=== PATIENT | female | born 1955 | race American Indian/Alaskan Native ===

== ENCOUNTER 2017-09-04 13:54 | Inpatient (IN) | payer OTHER ==
[2017-09-04] MEDS ORDERED: Dextrose 50% SYRINGE Inj (50 ml) ONE ×2 (14:13→14:15)
[2017-09-04 14:24] LABS: BASO # 0.1 K/uL (0.0-0.2); BASO % 0.3 % (0.0-2.0); EOS % 0.1 % (0.0-4.0); HEMATOCRIT 19.7 % (34.0-47.0); LYMPH # 1.4 K/uL (1.0-4.3); LYMPH % 6.6 % (20.0-40.0); MEAN CORPUSCULAR HEMOGLOBIN 32.6 pg (27.0-31.0); MEAN CORPUSCULAR HGB CONC 30.7 g/dL (33.0-37.0); MONO # 1.2 K/uL (0.0-0.8); MONO % 5.8 % (0.0-10.0); NRBC % 0.9 % (0.0-2.0); PLATELET COUNT 212 K/uL (130-400); RED CELL DISTRIBUTION WIDTH 29.9 % (11.5-14.5); WHITE BLOOD COUNT 20.6 K/uL (4.8-10.8)
[2017-09-04 14:31] LABS: INR 1.4
[2017-09-04 14:33] LABS: VENOUS BLOOD GAS BASE EXCESS -0.2 mmol/L (0.0-2.0); VENOUS BLOOD GAS PCO2 37 mmHg (40-60); VENOUS BLOOD PH 7.42 (7.32-7.43)
--- NOTE | 2017-09-04 14:35 | CT ---
PROCEDURE: CT HEAD WITHOUT CONTRAST. HISTORY: Code Stroke COMPARISON: None available. TECHNIQUE: Axial computed tomography images were obtained through the head/brain without intravenous contrast. Radiation dose: Total exam DLP = 843.43 mGy-cm. This CT exam was performed using one or more of the following dose reduction techniques: Automated exposure control, adjustment of the mA and/or kV according to patient size, and/or use of iterative reconstruction technique. FINDINGS: HEMORRHAGE: No intracranial hemorrhage. BRAIN: Diffuse atrophy with prominence of the ventricles and sulci noted. No mass effect or edema. Scattered periventricular and subcortical white matter hypodensities, which are nonspecific, but often seen with chronic microvascular ischemic disease. Please note that MRI with diffusion imaging is more sensitive in the detection of acute ischemic event. VENTRICLES: No hydrocephalus. CALVARIUM: Unremarkable. PARANASAL SINUSES: Unremarkable as visualized. No significant inflammatory changes. MASTOID AIR CELLS: Unremarkable as visualized. No inflammatory changes. OTHER FINDINGS: None. IMPRESSION: Nonspecific white matter changes. Generalized atrophy. Findings discussed with Dr. Everett on 09/04/17 at 2:29 p.m.
[2017-09-04 14:48] LABS: NEUTROPHIL 77 % (50-75); TOTAL CELLS COUNTED 100
[2017-09-04 14:51] LABS: STOMATOCYTES SLIGHT
[2017-09-04 14:52] LABS: LARGE PLATELETS PRESENT
[2017-09-04] MEDS ORDERED: Piperacill/Tazo 3.375gm in Dex 3.375 GM/50 ML BAG IVPB STA (14:54)
--- NOTE | 2017-09-04 15:00 | C.PDOC ---
History Of Present Illness 62 year old female, whose PMHx includes uterine cancer and HTN, is brought to the ED via EMS after being sent from residential for evaluation of altered mental status and lethargy since 0800 today. Patient was unresponsive upon ED arrival, with blood sugar less than 20mg/dL and was given two amps of dextrose. Patient continues to remain lethargic, response to verbal stimuli. History is limited due to patients clinical condition. Time Seen by Provider: 09/04/17 13:58 Chief Complaint (Nursing): Altered Mental Status History Per: EMS History/Exam Limitations: Clinical Condition Onset/Duration Of Symptoms: Hrs Current Symptoms Are (Timing): Still Present Usual Baseline: Other (baseline oriented x3) Exacerbating Factor(s): Unknown Additional History Per: EMS, [facility] Associated Symptoms: Other (AMS and lethargy ) Past Medical History Reviewed: Historical Data, Nursing Documentation, Vital Signs Vital Signs: Last Vital Signs Temp 97.7 F 09/05/17 07:00 Pulse 96 H 09/05/17 07:00 Resp 18 09/05/17 07:00 BP 125/77 09/05/17 07:00 Pulse Ox 100 09/05/17 07:00 - Medical History PMH: HTN Other PMH: uterine cancer Surgical History: No Surg Hx Family History: States: Unknown Family Hx - Social History Hx Alcohol Use: No Hx Substance Use: No - Immunization History Hx Tetanus Toxoid Vaccination: No Hx Influenza Vaccination: No Hx Pneumococcal Vaccination: No Review Of Systems Review Of Systems: ROS cannot be obtained secondary to pt's inabilty to answer questions. Physical Exam - Physical Exam Appears: Non-toxic, Other (lethargic, ill-appearing, occasionally moaning ) Skin: Normal Color, Warm, Dry Head: Atraumatic, Normacephalic Eye(s): bilateral: Normal Inspection Oral Mucosa: Moist Neck: Supple Chest: Symmetrical, No Deformity, No Tenderness Cardiovascular: Rhythm Regular, No Murmur Respiratory: Normal Breath Sounds, No Rales, No Rhonchi, No Wheezing Gastrointestinal/Abdominal: Distention, Other (wound VAC in place ) Extremity: Normal ROM, Capillary Refill (less than 2 seconds ) Neurological/Psych: Other (baseline oriented x3. no focal deficits ) ED Course And Treatment - Laboratory Results Result Diagrams: 09/05/17 06:38 09/05/17 06:38 ECG: Interpreted By Me, Viewed By Me ECG Rhythm: Sinus Tachycardia Interpretation Of ECG: Sinus Tachycardia with 102bpm. Poor tracing. Nonspecific ST/T wave changes. Rate From EC O2 Sat by Pulse Oximetry: 100 (on RA) Pulse Ox Interpretation: Normal - CT Scan/US CT Head Other Rad Studies (CT/US): Interpreted By Me, Read By Radiologist, Radiology Report Reviewed CT/US Interpretation: PROCEDURE: CT HEAD WITHOUT CONTRAST. HISTORY: Code Stroke. COMPARISON: None available. TECHNIQUE: Axial computed tomography images were obtained through the head/brain without intravenous contrast. Radiation dose: Total exam DLP = 843.43 mGy-cm. This CT exam was performed using one or more of the following dose reduction techniques: Automated exposure control, adjustment of the mA and/or kV according to patient size, and/ or use of iterative reconstruction technique. FINDINGS: HEMORRHAGE: No intracranial hemorrhage. BRAIN: Diffuse atrophy with prominence of the ventricles and sulci noted. No mass effect or edema. Scattered periventricular and subcortical white matter hypodensities, which are nonspecific, but often seen with chronic microvascular ischemic disease. Please note that MRI with diffusion imaging is more sensitive in the detection of acute ischemic event. VENTRICLES: No hydrocephalus. CALVARIUM: Unremarkable. PARANASAL SINUSES: Unremarkable as visualized. No significant inflammatory changes. MASTOID AIR CELLS: Unremarkable as visualized. No inflammatory changes. OTHER FINDINGS: None. IMPRESSION: Nonspecific white matter changes. Generalized atrophy. Findings discussed with Dr. Everett on 09/04/17 at 2:29 p.m. NIHSS Stroke Scale - How Severe is the Stoke Level of Consciousness: 2=Obtunded LOC to Questions: 2=Neither correct LOC to commands: 1=Obeys one correctly Best Gaze: 0=Normal Visual: 0=No visual loss Facial: 0=Normal Motor Arm - Left: 3=No effort against gravity (falls immediately) Motor Arm - Right: 3=No effort against gravity (falls immediately) Motor Leg - Left: 3=No effort against gravity (falls immediately) Motor Leg - Right: 3=No effort against gravity (falls immediately) Limb Ataxia: 0=Absent Sensory: 0=Normal Best Language: 0=No aphasia Dysarthia: 0=Normal articulation Extinction & Inattention (Neglect): 0=Normal, no object Score: 17 Severity Of Stroke: 16-20=Moderate/Severe Stroke rTPA Inclusion/Exclusion - Refusal of Treatment Patient Refused Treatment: No - Inclusion Criteria for Altepase Patient is 18 years or Older: Yes Clinical DX Ischemic Stroke Cause Neurological Deficit: No Time of Onset Established Less Than 270 Mins Before TX Begin: No Risk/Benefit Discussed With Patient/Family Member Present: Yes - Exclusion Criteria for Altepase Active Internal Bleeding: Yes Medical Decision Making Medical Decision Making: ams- pt still lethargic after 2 amp dextrose. code stroke called. not tpa candate, as per dr brewer, onset >6 hr, likely sepsis etiology, gi bleed- Progress: Bloodwork, UA, CXR, CT A/P, CT Head, EKG ordered and reviewed. Zosyn IVP, Vancomycin IVP administered. 430: case discussed with dr baker, and dr crump. pt will need hospice eval. agree to tele admission, given prognosis, need for hospice. pt needs tranfusion. consent obtained over phone. asa held as guiac pos, and anemic Disposition - Disposition Disposition: HOSPITALIZED Disposition Time: 05:00 Condition: GUARDED - Clinical Impression Clinical Impression: Altered mental status, Anemia, Pneumonia, Sepsis - Scribe Statement The provider has reviewed the documentation as recorded by the Scribe (Alivia Peres) Provider Attestation: All medical record entries made by the Scribe were at my direction and personally dictated by me. I have reviewed the chart and agree that the record accurately reflects my personal performance of the history, physical exam, medical decision making, and the department course for this patient. I have also personally directed, reviewed, and agree with the discharge instructions and disposition. Decision To Admit - Pt Status Changed To: Hospital Disposition Of: Inpatient - Admit Certification Admit to Inpatient:: After my assessment, the patient will require hospitalization for at least two midnights. This is because of the severity of symptoms shown, intensity of services needed, and/or the medical risk in this patient being treated as an outpatient. - InPatient: Physician Admission Certification:: sesps, needs iv antibiotcs transfusion and hospiee eval - . Bed Request Type: Telemetry Admitting Physician: Karla Peres Patient Diagnosis: Altered mental status, Anemia, Pneumonia, Sepsis
[2017-09-04] MEDS ORDERED: Vancomycin 1 gm/NS 200 ml 1 GM/200 ML BAG IVPB STA (15:32)
[2017-09-04 15:39] LABS: ALB/GLOB RATIO 0.5 (1.0-2.1); ALKALINE PHOSPHATASE 124 U/L (38-126); ALT/SGPT 33 U/L (9-52); AST/SGOT 59 U/L (14-36); BILIRUBIN,TOTAL 0.7 mg/dL (0.2-1.3); BLOOD UREA NITROGEN 30 mg/dL (7-17); CALCIUM 7.6 mg/dl (8.6-10.4); CARBON DIOXIDE 23 mmol/L (22-30); CHLORIDE 107 mmol/L (98-107); GFR AFRICAN-AMERICAN > 60; POTASSIUM 3.6 mmol/L (3.6-5.2); SODIUM 135 mmol/L (132-148); TOTAL PROTEIN 7.2 g/dL (6.3-8.3)
--- NOTE | 2017-09-04 15:44 | CT ---
CT abdomen and pelvis without IV contrast Indication: Abdominal distension Contiguous axial images of the abdomen and pelvis. No oral or IV contrast administered. Coronal and Sagittal reformats generated and reviewed. Radiation dose: Total exam DLP = 1163.37 mGy-cm. Comparison: None available. Findings: Moderate left-sided pleural effusion and associated consolidation. Right lower lobe 12 mm subpleural focus may reflect consolidations/atelectasis versus pulmonary nodule. Large mesenteric heterogeneous mass measuring approximately 14.7 cm (AP) by 18.1 cm (transverse) by 20.0 cm (cc). This finding exerts mass effect on surrounding structures. This lesion extends beyond the abdominal cavity into the abdominal soft tissues. The stomach is contracted and noted along the right lateral aspect of this mass. Scattered soft tissue nodules are evident measuring up to 2.0 x 1.2 cm on the right, possibly related to subcutaneous injections however metastases cannot be excluded. The noncontrast liver, spleen, gallbladder, and adrenal glands appear unremarkable. Limited visualization of the atrophic pancreas. Right-sided hydronephrosis with right ureteral stent evident. No evidence of hydronephrosis on the left. The stomach is nondistended. Lack of oral contrast limits evaluation for bowel pathology. The bowel loops appear within normal limits of caliber without evidence of intestinal obstruction. There is no definite free air. Atherosclerotic calcifications of the aorta. Hysterectomy. The urinary bladder appears unremarkable except for presence of right ureteral stent. Osseous structures demonstrate degenerative changes. Impression: Large heterogeneous mass within the mesenteries exerting mass effect on the surrounding structures measuring approximately 14.7 x 18.1 x 20.0 cm. This lesion extends beyond the abdominal cavity into the abdominal soft tissues. Appearance worrisome for malignant neoplasm such as sarcoma however indeterminate etiology. Given proximity to the stomach possibility of gastric leiomyoma or leiomyosarcoma should also be considered. If indicated endoscopy may be of benefit. Right-sided hydronephrosis with ureteral stent present. Scattered soft tissue nodules are evident measuring up to 2.0 x 1.2 cm on the right, possibly related to subcutaneous injections however metastases cannot be excluded. Moderate left-sided pleural effusion and associated consolidation. Right lower lobe 12 mm subpleural focus may reflect consolidations/atelectasis versus pulmonary nodule.Recommend further evaluation with biopsy, PET- CT, or follow-up CT at 3 months, and 9 months, and 24 months. Additional findings as above. Findings discussed with Dr. Everett on 09/04/17 at 3:13 p.m..
--- NOTE | 2017-09-04 16:00 | RAD ---
HISTORY: code stroke COMPARISON: None available. TECHNIQUE: Chest, one view. FINDINGS: Right-sided MediPort extends to the SVC. LUNGS: Small left pleural effusion with associated consolidation. No definite pneumothorax . CARDIOVASCULAR: Heart size appears within normal limits. Atherosclerotic calcification of the aortic knob. OSSEOUS STRUCTURES: Degenerative changes of the spine. VISUALIZED UPPER ABDOMEN: Unremarkable. OTHER FINDINGS: None. IMPRESSION: Right-sided MediPort extends to the SVC. Small left pleural effusion with associated consolidate.
[2017-09-04 16:02] LABS: GLUCOSE,RANDOM < 20 mg/dL (65-105)
[2017-09-04 16:04] LABS: CHOLESTEROL < 50 mg/dL (0-199)
[2017-09-04] MEDS ORDERED: Dextrose 50% SYRINGE Inj (50 ml) IV STA ×2 (16:36)
[2017-09-04] MEDS ORDERED: Aluminum Hydroxide/Magnesium Hydroxide Susp (30 mL) PO PRN (17:30)
--- NOTE | 2017-09-04 17:31 | CP.PCM.HP ---
History of Present Illness - History of Present Illness History of Present Illness: 59-year-old female with PMHuterine cancer and HTN [facility] for evaluation of altered mental status. Patient was lethargic since 8 AM today morning, became altered and when the EMS arrived her blood glucose was 20 mg/dl. patient was given two ampules of dextrose. Patient still continues to remain lethargic. Further history is unavailable due to patient's general medical condition. Present on Admission - Present on Admission Any Indicators Present on Admission: No Past Patient History - Infectious Disease Hx of Infectious Diseases: None - Past Social History Smoking Status: Unknown If Ever Smoked - CARDIAC Hx Hypertension: Yes - HEMATOLOGICAL/ONCOLOGICAL Hx Cancer: Yes (UTERUS) - MUSCULOSKELETAL/RHEUMATOLOGICAL Hx Unsteady Gait: Yes - PSYCHIATRIC Hx Substance Use: No - SURGICAL HISTORY Hx Surgeries: Yes Other/Comment: UTERINE NEOPLASM SURGERY - ANESTHESIA Hx Anesthesia: Yes Meds Allergies/Adverse Reactions: Allergies Allergy/AdvReac Type Severity Reaction Status Date / Time No Known Allergies Allergy Verified 09/04/17 14:40 Physical Exam - Constitutional Appears: Well - Head Exam Head Exam: ATRAUMATIC, NORMAL INSPECTION, NORMOCEPHALIC - Eye Exam Eye Exam: EOMI, Normal appearance, PERRL Pupil Exam: NORMAL ACCOMODATION, PERRL - ENT Exam ENT Exam: Mucous Membranes Moist, Normal Exam - Neck Exam Neck exam: Positive for: Normal Inspection - Respiratory Exam Respiratory Exam: Decreased Breath Sounds - Cardiovascular Exam Cardiovascular Exam: REGULAR RHYTHM, +S1, +S2 - GI/Abdominal Exam GI & Abdominal Exam: Diminished Bowel Sounds, Soft - Rectal Exam Rectal Exam: Deferred Results - Vital Signs Recent Vital Signs: Last Vital Signs Temp 97.4 F L 09/04/17 16:10 Pulse 97 H 09/04/17 16:10 Resp 12 09/04/17 16:10 BP 91/66 L 09/04/17 16:10 Pulse Ox 100 09/04/17 17:15 - Labs Result Diagrams: 09/11/17 07:08 09/11/17 07:08 Labs: Laboratory Results - last 24 hr 09/04/17 09/04/17 09/04/17 14:11 14:19 14:19 WBC 20.6 H RBC 1.86 L Hgb 6.1 L* Hct 19.7 L MCV 106.0 H MCH 32.6 H MCHC 30.7 L RDW 29.9 H Plt Count 212 MPV 8.0 Neut % (Auto) 87.2 H Lymph % (Auto) 6.6 L George % (Auto) 5.8 Eos % (Auto) 0.1 Baso % (Auto) 0.3 Neut # 18.0 H Lymph # 1.4 George # 1.2 H Eos # 0.0 Baso # 0.1 Neutrophils % (Manual) 77 H Band Neutrophils % 9 H Lymphocytes % (Manual) 10 L Monocytes % (Manual) 4 Platelet Estimate Normal Large Platelets Present Hypochromasia (manual) Slight Anisocytosis (manual) Moderate Macrocytosis (manual) Moderate Stomatocytes Slight PT 16.1 H INR 1.4 APTT 32 VBG pH VBG pCO2 VBG Total CO2 VBG O2 Sat (Calc) VBG Base Excess VBG Potassium Glucose Lactate Crit Value Called To Crit Value Called By Crit Value Read Back Blood Gas Notified Time Sodium Potassium Chloride Carbon Dioxide Anion Gap BUN Creatinine Est GFR ( Amer) Est GFR (Non-Af Amer) POC Glucose (mg/dL) < 20 L* Random Glucose Hemoglobin A1c Calcium Total Bilirubin AST ALT Alkaline Phosphatase Troponin I Total Protein Albumin Globulin Albumin/Globulin Ratio Triglycerides Cholesterol LDL Cholesterol Direct HDL Cholesterol Lipase Venous Blood Potassium Stool Occult Blood Blood Type Antibody Screen 09/04/17 09/04/17 09/04/17 14:19 14:19 14:26 WBC RBC Hgb Hct MCV MCH MCHC RDW Plt Count MPV Neut % (Auto) Lymph % (Auto) George % (Auto) Eos % (Auto) Baso % (Auto) Neut # Lymph # George # Eos # Baso # Neutrophils % (Manual) Band Neutrophils % Lymphocytes % (Manual) Monocytes % (Manual) Platelet Estimate Large Platelets Hypochromasia (manual) Anisocytosis (manual) Macrocytosis (manual) Stomatocytes PT INR APTT VBG pH 7.42 VBG pCO2 37 L VBG Total CO2 25.1 VBG O2 Sat (Calc) 97.7 H VBG Base Excess -0.2 L VBG Potassium 3.6 Glucose < 4 L* Lactate 0.8 Crit Value Called To Dr.raswant osman Crit Value Called By Jonas murillo Crit Value Read Back Y Blood Gas Notified Time 1440 Sodium 135 144.0 Potassium 3.6 Chloride 107 116.0 H Carbon Dioxide 23 Anion Gap 9 L BUN 30 H Creatinine 1.1 Est GFR ( Amer) > 60 Est GFR (Non-Af Amer) 50 POC Glucose (mg/dL) Random Glucose < 20 L* Hemoglobin A1c 3.7 L Calcium 7.6 L Total Bilirubin 0.7 AST 59 H ALT 33 Alkaline Phosphatase 124 Troponin I < 0.0120 Total Protein 7.2 Albumin 2.4 L Globulin 4.8 H Albumin/Globulin Ratio 0.5 L Triglycerides 116 Cholesterol < 50 LDL Cholesterol Direct < 30 HDL Cholesterol 11 L Lipase 71 Venous Blood Potassium 3.6 Stool Occult Blood Blood Type Antibody Screen 09/04/17 09/04/17 09/04/17 14:26 14:39 15:21 WBC RBC Hgb Hct MCV MCH MCHC RDW Plt Count MPV Neut % (Auto) Lymph % (Auto) George % (Auto) Eos % (Auto) Baso % (Auto) Neut # Lymph # George # Eos # Baso # Neutrophils % (Manual) Band Neutrophils % Lymphocytes % (Manual) Monocytes % (Manual) Platelet Estimate Large Platelets Hypochromasia (manual) Anisocytosis (manual) Macrocytosis (manual) Stomatocytes PT INR APTT VBG pH VBG pCO2 VBG Total CO2 VBG O2 Sat (Calc) VBG Base Excess VBG Potassium Glucose Lactate Crit Value Called To Crit Value Called By Crit Value Read Back Blood Gas Notified Time Sodium Potassium Chloride Carbon Dioxide Anion Gap BUN Creatinine Est GFR ( Amer) Est GFR (Non-Af Amer) POC Glucose (mg/dL) 203 H Random Glucose Hemoglobin A1c Calcium Total Bilirubin AST ALT Alkaline Phosphatase Troponin I Total Protein Albumin Globulin Albumin/Globulin Ratio Triglycerides Cholesterol LDL Cholesterol Direct HDL Cholesterol Lipase Venous Blood Potassium Stool Occult Blood Positive H Blood Type O POSITIVE Antibody Screen Negative
[2017-09-04 18:09] LABS: RBC URINE 257 /hpf (0-3); URINE BACTERIA MOD (<OCC); URINE BILIRUBIN NEGATIVE (NEGATIVE); URINE BLOOD 3+ (NEGATIVE); URINE COLOR Yellow (YELLOW); URINE GLUCOSE (UA) 1+ mg/dL (Normal); URINE HYALINE CAST >20 /lpf (0-2); URINE KETONE NEGATIVE (NEGATIVE); URINE LEUKOCYTE ESTERASE 2+ Leu/uL (Negative); URINE PROTEIN 2+ mg/dL (NEGATIVE); URINE UROBILINOGEN NORMAL mg/dL (0.2-1.0); WBC CLUMPS MOD /hpf; WBC URINE 7720 /hpf (0-5)
--- NOTE | 2017-09-04 19:19 | CP.PCM.CON ---
History of Present Illness - History of Present Illness History of Present Illness: 62 year old female with a history of recurrent primary peritoneal carcinoma diagnosed 03/2014, s/p chemotherapy and cytoreductive surgery complicated by prolonged wound closure s/p wound vac, admitted from rehab with lethargy and altered mental status. The patient was found to have low blood sugar and was treated with IV dextrose. Her mental status improved but she still has periods of confusion making further history difficult. Review of her blood work shows an elevated WBC and hgb of 6.1. Past medical, surgical, family, social history cannot be obtained from the patient. Allergies: Per documentation NKA Review of systems cannot be obtained. Past Patient History - Infectious Disease Hx of Infectious Diseases: None - Past Social History Smoking Status: Unknown If Ever Smoked - CARDIAC Hx Hypertension: Yes - HEMATOLOGICAL/ONCOLOGICAL Hx Cancer: Yes (UTERUS) - MUSCULOSKELETAL/RHEUMATOLOGICAL Hx Unsteady Gait: Yes - PSYCHIATRIC Hx Substance Use: No - SURGICAL HISTORY Hx Surgeries: Yes Other/Comment: UTERINE NEOPLASM SURGERY - ANESTHESIA Hx Anesthesia: Yes Meds Allergies/Adverse Reactions: Allergies Allergy/AdvReac Type Severity Reaction Status Date / Time No Known Allergies Allergy Verified 09/04/17 14:40 - Medications Medications: Current Medications Al Hydrox/Mg Hydrox/Simethicone (Maalox 30 Ml) 30 ml PO Q4 PRN PRN Reason: heartburn Enoxaparin Sodium (Lovenox) 40 mg SC DAILY [facility] Gabapentin (Neurontin) 300 mg PO BID [facility] Dextrose (Dextrose 10% In Water) 1,000 mls @ 25 mls/hr IV .Q24H [facility] Piperacillin Sod/Tazobactam Sod (Zosyn 3.375 Gm Iv Premix) 3.375 gm in 50 mls @ 100 mls/hr IVPB Q6H [facility] Ondansetron HCl (Zofran Tab) 4 mg PO Q8 PRN PRN Reason: nausea Pantoprazole Sodium (Protonix Ec Tab) 40 mg PO DAILY [facility] Physical Exam - Head Exam Head Exam: ATRAUMATIC - Eye Exam Eye Exam: Normal appearance - ENT Exam ENT Exam: Mucous Membranes Dry - Respiratory Exam Respiratory Exam: NORMAL BREATHING PATTERN - Cardiovascular Exam Cardiovascular Exam: +S1, +S2 - GI/Abdominal Exam GI & Abdominal Exam: Normal Bowel Sounds - Extremities Exam Extremities exam: Positive for: pedal edema - Neurological Exam Neurological exam: Altered - Psychiatric Exam Psychiatric exam: Normal Affect, Normal Mood - Skin Skin Exam: Warm Results - Vital Signs Recent Vital Signs: Last Vital Signs Temp 97.4 F L 09/04/17 17:15 Pulse 85 09/04/17 17:44 Resp 12 09/04/17 17:44 BP 104/57 L 09/04/17 17:44 Pulse Ox 98 09/04/17 17:44 - Labs Result Diagrams: 09/04/17 14:19 09/04/17 14:19 Labs: Laboratory Results - last 24 hr 09/04/17 09/04/17 09/04/17 14:11 14:19 14:19 WBC 20.6 H RBC 1.86 L Hgb 6.1 L* Hct 19.7 L MCV 106.0 H MCH 32.6 H MCHC 30.7 L RDW 29.9 H Plt Count 212 MPV 8.0 Neut % (Auto) 87.2 H Lymph % (Auto) 6.6 L [place] % (Auto) 5.8 Eos % (Auto) 0.1 Baso % (Auto) 0.3 Neut # 18.0 H Lymph # 1.4 [place] # 1.2 H Eos # 0.0 Baso # 0.1 Neutrophils % (Manual) 77 H Band Neutrophils % 9 H Lymphocytes % (Manual) 10 L Monocytes % (Manual) 4 Platelet Estimate Normal Large Platelets Present Hypochromasia (manual) Slight Anisocytosis (manual) Moderate Macrocytosis (manual) Moderate Stomatocytes Slight PT 16.1 H INR 1.4 APTT 32 VBG pH VBG pCO2 VBG Total CO2 VBG O2 Sat (Calc) VBG Base Excess VBG Potassium Glucose Lactate Crit Value Called To Crit Value Called By Crit Value Read Back Blood Gas Notified Time Sodium Potassium Chloride Carbon Dioxide Anion Gap BUN Creatinine Est GFR ( Amer) Est GFR (Non-Af Amer) POC Glucose (mg/dL) < 20 L* Random Glucose Hemoglobin A1c Calcium Total Bilirubin AST ALT Alkaline Phosphatase Troponin I Total Protein Albumin Globulin Albumin/Globulin Ratio Triglycerides Cholesterol LDL Cholesterol Direct HDL Cholesterol Lipase Venous Blood Potassium Urine Color Urine Clarity Urine pH Ur Specific [place] Urine Protein Urine Glucose (UA) Urine Ketones Urine Blood Urine Nitrate Urine Bilirubin Urine Urobilinogen Ur Leukocyte Esterase Urine WBC (Auto) Urine RBC (Auto) Urine WBC Clumps (Auto) Ur Squamous Epith Cells Urine Bacteria Hyaline Casts Urine Yeast (Budding) Stool Occult Blood Blood Type Antibody Screen 09/04/17 09/04/17 09/04/17 14:19 14:19 14:26 WBC RBC Hgb Hct MCV MCH MCHC RDW Plt Count MPV Neut % (Auto) Lymph % (Auto) [place] % (Auto) Eos % (Auto) Baso % (Auto) Neut # Lymph # [place] # Eos # Baso # Neutrophils % (Manual) Band Neutrophils % Lymphocytes % (Manual) Monocytes % (Manual) Platelet Estimate Large Platelets Hypochromasia (manual) Anisocytosis (manual) Macrocytosis (manual) Stomatocytes PT INR APTT VBG pH 7.42 VBG pCO2 37 L VBG Total CO2 25.1 VBG O2 Sat (Calc) 97.7 H VBG Base Excess -0.2 L VBG Potassium 3.6 Glucose < 4 L* Lactate 0.8 Crit Value Called To Dr.raswant osman Crit Value Called By Jonas murillo Crit Value Read Back Y Blood Gas Notified Time 1440 Sodium 135 144.0 Potassium 3.6 Chloride 107 116.0 H Carbon Dioxide 23 Anion Gap 9 L BUN 30 H Creatinine 1.1 Est GFR ( Amer) > 60 Est GFR (Non-Af Amer) 50 POC Glucose (mg/dL) Random Glucose < 20 L* Hemoglobin A1c 3.7 L Calcium 7.6 L Total Bilirubin 0.7 AST 59 H ALT 33 Alkaline Phosphatase 124 Troponin I < 0.0120 Total Protein 7.2 Albumin 2.4 L Globulin 4.8 H Albumin/Globulin Ratio 0.5 L Triglycerides 116 Cholesterol < 50 LDL Cholesterol Direct < 30 HDL Cholesterol 11 L Lipase 71 Venous Blood Potassium 3.6 Urine Color Urine Clarity Urine pH Ur Specific [place] Urine Protein Urine Glucose (UA) Urine Ketones Urine Blood Urine Nitrate Urine Bilirubin Urine Urobilinogen Ur Leukocyte Esterase Urine WBC (Auto) Urine RBC (Auto) Urine WBC Clumps (Auto) Ur Squamous Epith Cells Urine Bacteria Hyaline Casts Urine Yeast (Budding) Stool Occult Blood Blood Type Antibody Screen 09/04/17 09/04/17 09/04/17 14:26 14:39 15:21 WBC RBC Hgb Hct MCV MCH MCHC RDW Plt Count MPV Neut % (Auto) Lymph % (Auto) [place] % (Auto) Eos % (Auto) Baso % (Auto) Neut # Lymph # [place] # Eos # Baso # Neutrophils % (Manual) Band Neutrophils % Lymphocytes % (Manual) Monocytes % (Manual) Platelet Estimate Large Platelets Hypochromasia (manual) Anisocytosis (manual) Macrocytosis (manual) Stomatocytes PT INR APTT VBG pH VBG pCO2 VBG Total CO2 VBG O2 Sat (Calc) VBG Base Excess VBG Potassium Glucose Lactate Crit Value Called To Crit Value Called By Crit Value Read Back Blood Gas Notified Time Sodium Potassium Chloride Carbon Dioxide Anion Gap BUN Creatinine Est GFR ( Amer) Est GFR (Non-Af Amer) POC Glucose (mg/dL) 203 H Random Glucose Hemoglobin A1c Calcium Total Bilirubin AST ALT Alkaline Phosphatase Troponin I Total Protein Albumin Globulin Albumin/Globulin Ratio Triglycerides Cholesterol LDL Cholesterol Direct HDL Cholesterol Lipase Venous Blood Potassium Urine Color Urine Clarity Urine pH Ur Specific [place] Urine Protein Urine Glucose (UA) Urine Ketones Urine Blood Urine Nitrate Urine Bilirubin Urine Urobilinogen Ur Leukocyte Esterase Urine WBC (Auto) Urine RBC (Auto) Urine WBC Clumps (Auto) Ur Squamous Epith Cells Urine Bacteria Hyaline Casts Urine Yeast (Budding) Stool Occult Blood Positive H Blood Type O POSITIVE Antibody Screen Negative 09/04/17 09/04/17 17:41 18:54 WBC RBC Hgb Hct MCV MCH MCHC RDW Plt Count MPV Neut % (Auto) Lymph % (Auto) [place] % (Auto) Eos % (Auto) Baso % (Auto) Neut # Lymph # [place] # Eos # Baso # Neutrophils % (Manual) Band Neutrophils % Lymphocytes % (Manual) Monocytes % (Manual) Platelet Estimate Large Platelets Hypochromasia (manual) Anisocytosis (manual) Macrocytosis (manual) Stomatocytes PT INR APTT VBG pH VBG pCO2 VBG Total CO2 VBG O2 Sat (Calc) VBG Base Excess VBG Potassium Glucose Lactate Crit Value Called To Crit Value Called By Crit Value Read Back Blood Gas Notified Time Sodium Potassium Chloride Carbon Dioxide Anion Gap BUN Creatinine Est GFR ( Amer) Est GFR (Non-Af Amer) POC Glucose (mg/dL) 136 H Random Glucose Hemoglobin A1c Calcium Total Bilirubin AST ALT Alkaline Phosphatase Troponin I Total Protein Albumin Globulin Albumin/Globulin Ratio Triglycerides Cholesterol LDL Cholesterol Direct HDL Cholesterol Lipase Venous Blood Potassium Urine Color Yellow Urine Clarity Turbid Urine pH 5.0 Ur Specific [place] 1.015 Urine Protein 2+ H Urine Glucose (UA) 1+ Urine Ketones Negative Urine Blood 3+ H Urine Nitrate Negative Urine Bilirubin Negative Urine Urobilinogen Normal Ur Leukocyte Esterase 2+ H Urine WBC (Auto) 7720 H Urine RBC (Auto) 257 H Urine WBC Clumps (Auto) Mod H Ur Squamous Epith Cells 4 Urine Bacteria Mod H Hyaline Casts >20 H Urine Yeast (Budding) Many H Stool Occult Blood Blood Type Antibody Screen Assessment & Plan (1) Anemia Assessment and Plan: will send ferritin, retic count, b12, folate to further characterize FOBT positive likely anemia of chronic disease agree with transfusion support Status: Acute (2) Leukocytosis Assessment and Plan: on antibiotics prior intra abdominal infection; has wound vac Status: Acute (3) Coagulopathy Assessment and Plan: likely nutritional Status: Acute (4) Extraovarian primary peritoneal carcinoma Assessment and Plan: s/p chemotherapy and cytoreductive surgery CT scan shows progression of her disease despite cytoreductive surgery recommend palliative care evaluation pt not a treatment candidate given continued debility Thank you for this interesting consult. Status: Acute
[2017-09-04] MEDS: Pantoprazole 40 mg EC Tab PO SCH (20:30)
[2017-09-04] MEDS: Piperacill/Tazo 3.375gm in Dex 3.375 GM/50 ML BAG IVPB SCH (21:40)
--- NOTE | 2017-09-05 00:58 | CP.PCM.CON ---
History of Present Illness - History of Present Illness History of Present Illness: General Surgery Consult Re: Abdominal wound with wound vac HPI: 62F with a history of recurrent primary peritoneal carcinoma with delayed wound closure with wound vac, initially admitted with AMS. Surgery Consulted for evaluation of wound vac. Pt does not, at this time, answer questions. EMR and Outpatient facility transfer chart reviewed. PMH: recurrent primary peritoneal carcinoma, HTN PSH: cytoreductive surgery SH: Unable to obtain All: NKDA Meds: See MAR Review of Systems - Review of Systems Systems not reviewed;Unavailable: Altered Mental Status Past Patient History - Infectious Disease Hx of Infectious Diseases: None - Past Social History Smoking Status: Unknown If Ever Smoked - CARDIAC Hx Hypertension: Yes - HEMATOLOGICAL/ONCOLOGICAL Hx Cancer: Yes (UTERUS) - MUSCULOSKELETAL/RHEUMATOLOGICAL Hx Unsteady Gait: Yes - PSYCHIATRIC Hx Substance Use: No - SURGICAL HISTORY Hx Surgeries: Yes Other/Comment: UTERINE NEOPLASM SURGERY - ANESTHESIA Hx Anesthesia: Yes Meds Allergies/Adverse Reactions: Allergies Allergy/AdvReac Type Severity Reaction Status Date / Time No Known Allergies Allergy Verified 09/04/17 14:40 - Medications Medications: Current Medications Al Hydrox/Mg Hydrox/Simethicone (Maalox 30 Ml) 30 ml PO Q4 PRN PRN Reason: heartburn Enoxaparin Sodium (Lovenox) 40 mg SC DAILY [facility] Gabapentin (Neurontin) 300 mg PO BID [facility] Last Admin: 09/04/17 20:30 Dose: 300 mg Dextrose (Dextrose 10% In Water) 1,000 mls @ 25 mls/hr IV .Q24H [facility] Last Admin: 09/04/17 19:38 Dose: 25 mls/hr Piperacillin Sod/Tazobactam Sod (Zosyn 3.375 Gm Iv Premix) 3.375 gm in 50 mls @ 100 mls/hr IVPB Q6H [facility] Last Admin: 09/04/17 21:40 Dose: 100 mls/hr Ondansetron HCl (Zofran Tab) 4 mg PO Q8 PRN PRN Reason: nausea Pantoprazole Sodium (Protonix Ec Tab) 40 mg PO DAILY [facility] Last Admin: 09/04/17 20:30 Dose: 40 mg Physical Exam - Constitutional Appears: Non-toxic, No Acute Distress - Head Exam Head Exam: ATRAUMATIC, NORMOCEPHALIC - Eye Exam Eye Exam: EOMI. absent: Scleral icterus - ENT Exam ENT Exam: Mucous Membranes Dry Additional comments: Trachea midline - Respiratory Exam Respiratory Exam: NORMAL BREATHING PATTERN. absent: Respiratory Distress - Cardiovascular Exam Cardiovascular Exam: RRR, +S1, +S2 - GI/Abdominal Exam GI & Abdominal Exam: Distended, Mass, Soft. absent: Firm, Guarding, Rebound, Rigid, Tenderness Additional comments: wound vac in place, no vac machine yet. blood pooling under vac dressing, no leaking - Rectal Exam Rectal Exam: Deferred - Extremities Exam Extremities exam: Positive for: normal capillary refill. Negative for: calf tenderness - Back Exam Back exam: absent: CVA tenderness (L), CVA tenderness (R) - Neurological Exam Neurological exam: Altered - Psychiatric Exam Psychiatric exam: Flat Affect - Skin Skin Exam: Dry, Warm Results - Vital Signs Recent Vital Signs: Last Vital Signs Temp 97.6 F 09/04/17 19:20 Pulse 91 H 09/04/17 20:00 Resp 20 09/04/17 19:20 BP 120/64 09/04/17 19:20 Pulse Ox 100 09/04/17 19:20 - Labs Result Diagrams: 09/04/17 14:19 09/04/17 14:19 Labs: Laboratory Results - last 24 hr 09/04/17 09/04/17 09/04/17 14:11 14:19 14:19 WBC 20.6 H RBC 1.86 L Hgb 6.1 L* Hct 19.7 L MCV 106.0 H MCH 32.6 H MCHC 30.7 L RDW 29.9 H Plt Count 212 MPV 8.0 Neut % (Auto) 87.2 H Lymph % (Auto) 6.6 L [place] % (Auto) 5.8 Eos % (Auto) 0.1 Baso % (Auto) 0.3 Neut # 18.0 H Lymph # 1.4 [place] # 1.2 H Eos # 0.0 Baso # 0.1 Neutrophils % (Manual) 77 H Band Neutrophils % 9 H Lymphocytes % (Manual) 10 L Monocytes % (Manual) 4 Platelet Estimate Normal Large Platelets Present Hypochromasia (manual) Slight Anisocytosis (manual) Moderate Macrocytosis (manual) Moderate Stomatocytes Slight PT 16.1 H INR 1.4 APTT 32 VBG pH VBG pCO2 VBG Total CO2 VBG O2 Sat (Calc) VBG Base Excess VBG Potassium Glucose Lactate Crit Value Called To Crit Value Called By Crit Value Read Back Blood Gas Notified Time Sodium Potassium Chloride Carbon Dioxide Anion Gap BUN Creatinine Est GFR ( Amer) Est GFR (Non-Af Amer) POC Glucose (mg/dL) < 20 L* Random Glucose Hemoglobin A1c Calcium Total Bilirubin AST ALT Alkaline Phosphatase Troponin I Total Protein Albumin Globulin Albumin/Globulin Ratio Triglycerides Cholesterol LDL Cholesterol Direct HDL Cholesterol Lipase Venous Blood Potassium Urine Color Urine Clarity Urine pH Ur Specific [place] Urine Protein Urine Glucose (UA) Urine Ketones Urine Blood Urine Nitrate Urine Bilirubin Urine Urobilinogen Ur Leukocyte Esterase Urine WBC (Auto) Urine RBC (Auto) Urine WBC Clumps (Auto) Ur Squamous Epith Cells Urine Bacteria Hyaline Casts Urine Yeast (Budding) Stool Occult Blood Blood Type Antibody Screen 09/04/17 09/04/17 09/04/17 14:19 14:19 14:26 WBC RBC Hgb Hct MCV MCH MCHC RDW Plt Count MPV Neut % (Auto) Lymph % (Auto) [place] % (Auto) Eos % (Auto) Baso % (Auto) Neut # Lymph # [place] # Eos # Baso # Neutrophils % (Manual) Band Neutrophils % Lymphocytes % (Manual) Monocytes % (Manual) Platelet Estimate Large Platelets Hypochromasia (manual) Anisocytosis (manual) Macrocytosis (manual) Stomatocytes PT INR APTT VBG pH 7.42 VBG pCO2 37 L VBG Total CO2 25.1 VBG O2 Sat (Calc) 97.7 H VBG Base Excess -0.2 L VBG Potassium 3.6 Glucose < 4 L* Lactate 0.8 Crit Value Called To Dr.raswant osman Crit Value Called By Jonas murillo Crit Value Read Back Y Blood Gas Notified Time 1440 Sodium 135 144.0 Potassium 3.6 Chloride 107 116.0 H Carbon Dioxide 23 Anion Gap 9 L BUN 30 H Creatinine 1.1 Est GFR ( Amer) > 60 Est GFR (Non-Af Amer) 50 POC Glucose (mg/dL) Random Glucose < 20 L* Hemoglobin A1c 3.7 L Calcium 7.6 L Total Bilirubin 0.7 AST 59 H ALT 33 Alkaline Phosphatase 124 Troponin I < 0.0120 Total Protein 7.2 Albumin 2.4 L Globulin 4.8 H Albumin/Globulin Ratio 0.5 L Triglycerides 116 Cholesterol < 50 LDL Cholesterol Direct < 30 HDL Cholesterol 11 L Lipase 71 Venous Blood Potassium 3.6 Urine Color Urine Clarity Urine pH Ur Specific [place] Urine Protein Urine Glucose (UA) Urine Ketones Urine Blood Urine Nitrate Urine Bilirubin Urine Urobilinogen Ur Leukocyte Esterase Urine WBC (Auto) Urine RBC (Auto) Urine WBC Clumps (Auto) Ur Squamous Epith Cells Urine Bacteria Hyaline Casts Urine Yeast (Budding) Stool Occult Blood Blood Type Antibody Screen 09/04/17 09/04/17 09/04/17 14:26 14:39 15:21 WBC RBC Hgb Hct MCV MCH MCHC RDW Plt Count MPV Neut % (Auto) Lymph % (Auto) [place] % (Auto) Eos % (Auto) Baso % (Auto) Neut # Lymph # [place] # Eos # Baso # Neutrophils % (Manual) Band Neutrophils % Lymphocytes % (Manual) Monocytes % (Manual) Platelet Estimate Large Platelets Hypochromasia (manual) Anisocytosis (manual) Macrocytosis (manual) Stomatocytes PT INR APTT VBG pH VBG pCO2 VBG Total CO2 VBG O2 Sat (Calc) VBG Base Excess VBG Potassium Glucose Lactate Crit Value Called To Crit Value Called By Crit Value Read Back Blood Gas Notified Time Sodium Potassium Chloride Carbon Dioxide Anion Gap BUN Creatinine Est GFR ( Amer) Est GFR (Non-Af Amer) POC Glucose (mg/dL) 203 H Random Glucose Hemoglobin A1c Calcium Total Bilirubin AST ALT Alkaline Phosphatase Troponin I Total Protein Albumin Globulin Albumin/Globulin Ratio Triglycerides Cholesterol LDL Cholesterol Direct HDL Cholesterol Lipase Venous Blood Potassium Urine Color Urine Clarity Urine pH Ur Specific [place] Urine Protein Urine Glucose (UA) Urine Ketones Urine Blood Urine Nitrate Urine Bilirubin Urine Urobilinogen Ur Leukocyte Esterase Urine WBC (Auto) Urine RBC (Auto) Urine WBC Clumps (Auto) Ur Squamous Epith Cells Urine Bacteria Hyaline Casts Urine Yeast (Budding) Stool Occult Blood Positive H Blood Type O POSITIVE Antibody Screen Negative 09/04/17 09/04/17 09/04/17 17:41 18:54 21:19 WBC RBC Hgb Hct MCV MCH MCHC RDW Plt Count MPV Neut % (Auto) Lymph % (Auto) [place] % (Auto) Eos % (Auto) Baso % (Auto) Neut # Lymph # [place] # Eos # Baso # Neutrophils % (Manual) Band Neutrophils % Lymphocytes % (Manual) Monocytes % (Manual) Platelet Estimate Large Platelets Hypochromasia (manual) Anisocytosis (manual) Macrocytosis (manual) Stomatocytes PT INR APTT VBG pH VBG pCO2 VBG Total CO2 VBG O2 Sat (Calc) VBG Base Excess VBG Potassium Glucose Lactate Crit Value Called To Crit Value Called By Crit Value Read Back Blood Gas Notified Time Sodium Potassium Chloride Carbon Dioxide Anion Gap BUN Creatinine Est GFR ( Amer) Est GFR (Non-Af Amer) POC Glucose (mg/dL) 136 H 134 H Random Glucose Hemoglobin A1c Calcium Total Bilirubin AST ALT Alkaline Phosphatase Troponin I Total Protein Albumin Globulin Albumin/Globulin Ratio Triglycerides Cholesterol LDL Cholesterol Direct HDL Cholesterol Lipase Venous Blood Potassium Urine Color Yellow Urine Clarity Turbid Urine pH 5.0 Ur Specific [place] 1.015 Urine Protein 2+ H Urine Glucose (UA) 1+ Urine Ketones Negative Urine Blood 3+ H Urine Nitrate Negative Urine Bilirubin Negative Urine Urobilinogen Normal Ur Leukocyte Esterase 2+ H Urine WBC (Auto) 7720 H Urine RBC (Auto) 257 H Urine WBC Clumps (Auto) Mod H Ur Squamous Epith Cells 4 Urine Bacteria Mod H Hyaline Casts >20 H Urine Yeast (Budding) Many H Stool Occult Blood Blood Type Antibody Screen - Imaging and Cardiology CT scan - abdomen Status: Image reviewed by me, Report reviewed by me CT scan - head Status: Image reviewed by me, Report reviewed by me Assessment & Plan - Assessment and Plan (Free Text) Assessment: 62F with wound vac from prior surgery at outside facility Plan: Order vac machine in AM, connect when available. Will re-evaluate after to see if dressing needs to be changed as well Will D/W Dr. Varinder Arcos [id number]
[2017-09-05] MEDS: Piperacill/Tazo 3.375gm in Dex 3.375 GM/50 ML BAG IVPB SCH ×4 (02:10→23:42)
--- NOTE | 2017-09-05 06:59 | CP.PCM.CON ---
History of Present Illness - History of Present Illness History of Present Illness: CONSULT DICTATED CHANGE IN MENTAL STATUS - HYPOGLYCEMIA LEFT SIDE WEAKNESS - STROKE VS SEIZURES WORK UP PER ORDER Past Patient History - Infectious Disease Hx of Infectious Diseases: None - Past Social History Smoking Status: Unknown If Ever Smoked - CARDIAC Hx Hypertension: Yes - HEMATOLOGICAL/ONCOLOGICAL Hx Cancer: Yes (UTERUS) - MUSCULOSKELETAL/RHEUMATOLOGICAL Hx Unsteady Gait: Yes - PSYCHIATRIC Hx Substance Use: No - SURGICAL HISTORY Hx Surgeries: Yes Other/Comment: UTERINE NEOPLASM SURGERY - ANESTHESIA Hx Anesthesia: Yes Meds Allergies/Adverse Reactions: Allergies Allergy/AdvReac Type Severity Reaction Status Date / Time No Known Allergies Allergy Verified 09/04/17 14:40 - Medications Medications: Current Medications Al Hydrox/Mg Hydrox/Simethicone (Maalox 30 Ml) 30 ml PO Q4 PRN PRN Reason: heartburn Enoxaparin Sodium (Lovenox) 40 mg SC DAILY [facility] Gabapentin (Neurontin) 300 mg PO BID [facility] Last Admin: 09/04/17 20:30 Dose: 300 mg Dextrose (Dextrose 10% In Water) 1,000 mls @ 25 mls/hr IV .Q24H [facility] Last Admin: 09/04/17 19:38 Dose: 25 mls/hr Piperacillin Sod/Tazobactam Sod (Zosyn 3.375 Gm Iv Premix) 3.375 gm in 50 mls @ 100 mls/hr IVPB Q6H [facility] Last Admin: 09/05/17 02:10 Dose: 100 mls/hr Ondansetron HCl (Zofran Tab) 4 mg PO Q8 PRN PRN Reason: nausea Pantoprazole Sodium (Protonix Ec Tab) 40 mg PO DAILY [facility] Last Admin: 09/04/17 20:30 Dose: 40 mg Results - Vital Signs Recent Vital Signs: Last Vital Signs Temp 97.7 F 09/05/17 05:17 Pulse 108 H 09/05/17 05:17 Resp 18 09/05/17 05:17 BP 123/79 09/05/17 05:17 Pulse Ox 100 09/04/17 23:30 - Labs Result Diagrams: 09/04/17 14:19 09/04/17 14:19 Labs: Laboratory Results - last 24 hr 09/04/17 09/04/17 09/04/17 14:11 14:19 14:19 WBC 20.6 H RBC 1.86 L Hgb 6.1 L* Hct 19.7 L MCV 106.0 H MCH 32.6 H MCHC 30.7 L RDW 29.9 H Plt Count 212 MPV 8.0 Neut % (Auto) 87.2 H Lymph % (Auto) 6.6 L Arroyo % (Auto) 5.8 Eos % (Auto) 0.1 Baso % (Auto) 0.3 Neut # 18.0 H Lymph # 1.4 Arroyo # 1.2 H Eos # 0.0 Baso # 0.1 Neutrophils % (Manual) 77 H Band Neutrophils % 9 H Lymphocytes % (Manual) 10 L Monocytes % (Manual) 4 Platelet Estimate Normal Large Platelets Present Hypochromasia (manual) Slight Anisocytosis (manual) Moderate Macrocytosis (manual) Moderate Stomatocytes Slight PT 16.1 H INR 1.4 APTT 32 VBG pH VBG pCO2 VBG Total CO2 VBG O2 Sat (Calc) VBG Base Excess VBG Potassium Glucose Lactate Crit Value Called To Crit Value Called By Crit Value Read Back Blood Gas Notified Time Sodium Potassium Chloride Carbon Dioxide Anion Gap BUN Creatinine Est GFR ( Amer) Est GFR (Non-Af Amer) POC Glucose (mg/dL) < 20 L* Random Glucose Hemoglobin A1c Calcium Total Bilirubin AST ALT Alkaline Phosphatase Troponin I Total Protein Albumin Globulin Albumin/Globulin Ratio Triglycerides Cholesterol LDL Cholesterol Direct HDL Cholesterol Lipase Venous Blood Potassium Urine Color Urine Clarity Urine pH Ur Specific [place] Urine Protein Urine Glucose (UA) Urine Ketones Urine Blood Urine Nitrate Urine Bilirubin Urine Urobilinogen Ur Leukocyte Esterase Urine WBC (Auto) Urine RBC (Auto) Urine WBC Clumps (Auto) Ur Squamous Epith Cells Urine Bacteria Hyaline Casts Urine Yeast (Budding) Stool Occult Blood Blood Type Antibody Screen 09/04/17 09/04/17 09/04/17 14:19 14:19 14:26 WBC RBC Hgb Hct MCV MCH MCHC RDW Plt Count MPV Neut % (Auto) Lymph % (Auto) Arroyo % (Auto) Eos % (Auto) Baso % (Auto) Neut # Lymph # [place] # Eos # Baso # Neutrophils % (Manual) Band Neutrophils % Lymphocytes % (Manual) Monocytes % (Manual) Platelet Estimate Large Platelets Hypochromasia (manual) Anisocytosis (manual) Macrocytosis (manual) Stomatocytes PT INR APTT VBG pH 7.42 VBG pCO2 37 L VBG Total CO2 25.1 VBG O2 Sat (Calc) 97.7 H VBG Base Excess -0.2 L VBG Potassium 3.6 Glucose < 4 L* Lactate 0.8 Crit Value Called To Dr.raswant osman Crit Value Called By Jonas murillo Crit Value Read Back Y Blood Gas Notified Time 1440 Sodium 135 144.0 Potassium 3.6 Chloride 107 116.0 H Carbon Dioxide 23 Anion Gap 9 L BUN 30 H Creatinine 1.1 Est GFR ( Amer) > 60 Est GFR (Non-Af Amer) 50 POC Glucose (mg/dL) Random Glucose < 20 L* Hemoglobin A1c 3.7 L Calcium 7.6 L Total Bilirubin 0.7 AST 59 H ALT 33 Alkaline Phosphatase 124 Troponin I < 0.0120 Total Protein 7.2 Albumin 2.4 L Globulin 4.8 H Albumin/Globulin Ratio 0.5 L Triglycerides 116 Cholesterol < 50 LDL Cholesterol Direct < 30 HDL Cholesterol 11 L Lipase 71 Venous Blood Potassium 3.6 Urine Color Urine Clarity Urine pH Ur Specific [place] Urine Protein Urine Glucose (UA) Urine Ketones Urine Blood Urine Nitrate Urine Bilirubin Urine Urobilinogen Ur Leukocyte Esterase Urine WBC (Auto) Urine RBC (Auto) Urine WBC Clumps (Auto) Ur Squamous Epith Cells Urine Bacteria Hyaline Casts Urine Yeast (Budding) Stool Occult Blood Blood Type Antibody Screen 09/04/17 09/04/17 09/04/17 14:26 14:39 15:21 WBC RBC Hgb Hct MCV MCH MCHC RDW Plt Count MPV Neut % (Auto) Lymph % (Auto) Arroyo % (Auto) Eos % (Auto) Baso % (Auto) Neut # Lymph # [place] # Eos # Baso # Neutrophils % (Manual) Band Neutrophils % Lymphocytes % (Manual) Monocytes % (Manual) Platelet Estimate Large Platelets Hypochromasia (manual) Anisocytosis (manual) Macrocytosis (manual) Stomatocytes PT INR APTT VBG pH VBG pCO2 VBG Total CO2 VBG O2 Sat (Calc) VBG Base Excess VBG Potassium Glucose Lactate Crit Value Called To Crit Value Called By Crit Value Read Back Blood Gas Notified Time Sodium Potassium Chloride Carbon Dioxide Anion Gap BUN Creatinine Est GFR ( Amer) Est GFR (Non-Af Amer) POC Glucose (mg/dL) 203 H Random Glucose Hemoglobin A1c Calcium Total Bilirubin AST ALT Alkaline Phosphatase Troponin I Total Protein Albumin Globulin Albumin/Globulin Ratio Triglycerides Cholesterol LDL Cholesterol Direct HDL Cholesterol Lipase Venous Blood Potassium Urine Color Urine Clarity Urine pH Ur Specific [place] Urine Protein Urine Glucose (UA) Urine Ketones Urine Blood Urine Nitrate Urine Bilirubin Urine Urobilinogen Ur Leukocyte Esterase Urine WBC (Auto) Urine RBC (Auto) Urine WBC Clumps (Auto) Ur Squamous Epith Cells Urine Bacteria Hyaline Casts Urine Yeast (Budding) Stool Occult Blood Positive H Blood Type O POSITIVE Antibody Screen Negative 09/04/17 09/04/17 09/04/17 17:41 18:54 21:19 WBC RBC Hgb Hct MCV MCH MCHC RDW Plt Count MPV Neut % (Auto) Lymph % (Auto) [place] % (Auto) Eos % (Auto) Baso % (Auto) Neut # Lymph # [place] # Eos # Baso # Neutrophils % (Manual) Band Neutrophils % Lymphocytes % (Manual) Monocytes % (Manual) Platelet Estimate Large Platelets Hypochromasia (manual) Anisocytosis (manual) Macrocytosis (manual) Stomatocytes PT INR APTT VBG pH VBG pCO2 VBG Total CO2 VBG O2 Sat (Calc) VBG Base Excess VBG Potassium Glucose Lactate Crit Value Called To Crit Value Called By Crit Value Read Back Blood Gas Notified Time Sodium Potassium Chloride Carbon Dioxide Anion Gap BUN Creatinine Est GFR ( Amer) Est GFR (Non-Af Amer) POC Glucose (mg/dL) 136 H 134 H Random Glucose Hemoglobin A1c Calcium Total Bilirubin AST ALT Alkaline Phosphatase Troponin I Total Protein Albumin Globulin Albumin/Globulin Ratio Triglycerides Cholesterol LDL Cholesterol Direct HDL Cholesterol Lipase Venous Blood Potassium Urine Color Yellow Urine Clarity Turbid Urine pH 5.0 Ur Specific [place] 1.015 Urine Protein 2+ H Urine Glucose (UA) 1+ Urine Ketones Negative Urine Blood 3+ H Urine Nitrate Negative Urine Bilirubin Negative Urine Urobilinogen Normal Ur Leukocyte Esterase 2+ H Urine WBC (Auto) 7720 H Urine RBC (Auto) 257 H Urine WBC Clumps (Auto) Mod H Ur Squamous Epith Cells 4 Urine Bacteria Mod H Hyaline Casts >20 H Urine Yeast (Budding) Many H Stool Occult Blood Blood Type Antibody Screen 09/05/17 09/05/17 02:15 06:22 WBC RBC Hgb Hct MCV MCH MCHC RDW Plt Count MPV Neut % (Auto) Lymph % (Auto) [place] % (Auto) Eos % (Auto) Baso % (Auto) Neut # Lymph # [place] # Eos # Baso # Neutrophils % (Manual) Band Neutrophils % Lymphocytes % (Manual) Monocytes % (Manual) Platelet Estimate Large Platelets Hypochromasia (manual) Anisocytosis (manual) Macrocytosis (manual) Stomatocytes PT INR APTT VBG pH VBG pCO2 VBG Total CO2 VBG O2 Sat (Calc) VBG Base Excess VBG Potassium Glucose Lactate Crit Value Called To Crit Value Called By Crit Value Read Back Blood Gas Notified Time Sodium Potassium Chloride Carbon Dioxide Anion Gap BUN Creatinine Est GFR ( Amer) Est GFR (Non-Af Amer) POC Glucose (mg/dL) 125 H 127 H Random Glucose Hemoglobin A1c Calcium Total Bilirubin AST ALT Alkaline Phosphatase Troponin I Total Protein Albumin Globulin Albumin/Globulin Ratio Triglycerides Cholesterol LDL Cholesterol Direct HDL Cholesterol Lipase Venous Blood Potassium Urine Color Urine Clarity Urine pH Ur Specific [place] Urine Protein Urine Glucose (UA) Urine Ketones Urine Blood Urine Nitrate Urine Bilirubin Urine Urobilinogen Ur Leukocyte Esterase Urine WBC (Auto) Urine RBC (Auto) Urine WBC Clumps (Auto) Ur Squamous Epith Cells Urine Bacteria Hyaline Casts Urine Yeast (Budding) Stool Occult Blood Blood Type Antibody Screen
[2017-09-05 07:09] LABS: ALB/GLOB RATIO 0.5 (1.0-2.1); ALKALINE PHOSPHATASE 118 U/L (38-126); ALT/SGPT 27 U/L (9-52); AST/SGOT 47 U/L (14-36); BILIRUBIN,TOTAL 1.4 mg/dL (0.2-1.3); BLOOD UREA NITROGEN 26 mg/dL (7-17); CALCIUM 7.2 mg/dl (8.6-10.4); CARBON DIOXIDE 20 mmol/L (22-30); CHLORIDE 105 mmol/L (98-107); GFR AFRICAN-AMERICAN > 60; GLUCOSE,RANDOM 101 mg/dL (65-105); POTASSIUM 3.3 mmol/L (3.6-5.2); SODIUM 138 mmol/L (132-148); TOTAL PROTEIN 6.2 g/dL (6.3-8.3)
[2017-09-05 07:40] LABS: RETIC% 5.7 % (0.5-1.5)
[2017-09-05 07:53] LABS: BASO % 0.1 % (0.0-2.0); EOS % 0.1 % (0.0-4.0); HEMATOCRIT 26.8 % (34.0-47.0); LYMPH # 1.2 K/uL (1.0-4.3); LYMPH % 6.9 % (20.0-40.0); MEAN CELL VOLUME 96.5 fL (81.0-99.0); MEAN CORPUSCULAR HEMOGLOBIN 31.1 pg (27.0-31.0); MEAN CORPUSCULAR HGB CONC 32.2 g/dL (33.0-37.0); MEAN PLATELET VOLUME 8.4 fL (7.2-11.7); MONO # 0.9 K/uL (0.0-0.8); MONO % 5.3 % (0.0-10.0); NRBC % 0.9 % (0.0-2.0); PLATELET COUNT 133 K/uL (130-400); RED CELL DISTRIBUTION WIDTH 23.5 % (11.5-14.5); WHITE BLOOD COUNT 17.2 K/uL (4.8-10.8)
[2017-09-05 08:57] LABS: NEUTROPHIL 79 % (50-75); NUCLEATED RED BLOOD CELL 1 % (0-0); TOTAL CELLS COUNTED 100
--- NOTE | 2017-09-05 09:56 | CON ---
DATE: 09/05/2017 REASON FOR THE CONSULTATION: Change in mental status. CHIEF COMPLAINT: The patient was brought in from residential with history of change in mental status and her sugar was found low. From neurological point of view, I was called in to evaluate her for her change in mental status. Ms. Ama Goldman is a 62-year-old right-handed female, brought in to [facility] from rehabilitation, who was found to have lethargicness and change in mental status. From neurological point of view, I was called in to evaluate her for further management. HISTORY OF PRESENT ILLNESS: Ms. Ama Goldman is a 62-year-old right-handed female, presenting with change in mental status with low glucose in the residential. No loss of consciousness. No involuntary movements. No fall. No head injuries or bowel or bladder incontinence. PAST MEDICAL HISTORY: Significant for peritoneal cancer been diagnosed in March 2014, followed by chemotherapy and cytoreductive surgery, which required prolonged closure as per the documentation. PERSONAL HISTORY: Denies smoking or alcohol use. REVIEW OF SYSTEMS: Twelve-point systems had been reviewed. From neuro, change in mental status. MEDICATIONS: Aspirin, Lovenox, Maalox, Neurontin, Protonix, Zofran, tazobactam. PHYSICAL EXAMINATION: VITAL SIGNS: Blood pressure 123/79, mean arterial pressure of 90, respiratory rate 16, temperature afebrile. NECK: Supple. No carotid bruit. HEART: Sounds continuous murmur. EXTREMITIES: Leg is externally rotated on her left side. ABDOMEN: Stomach is distended. NEUROLOGICAL: Mental status examination: She is awake, alert, oriented to person only. Speech is spontaneous. Does not follow full commands. At times, she follows. Significant right to left confusion. Cranial nerve examination: Responds to visual threat. Pupils reactive to light. Extraocular movement decreased in all directions. No facial sensory deficit. No facial asymmetry. Hearing is normal. Tongue is midline. Good gag. Spontaneous movement noted on right more than her left side. Subjective weakness 4/5 on all 4 extremities. Left leg is externally rotated. Deep tendon reflexes are absent. Plantars are upgoing on her both sides. Sensory examination: Responds to pain symmetrically on both sides. WORKUP: CT of the head reviewed by me. No acute pathology is noted. EKG, normal sinus rhythm. Blood workup: WBC 20.6, hemoglobin 6.1, hematocrit 19.7, platelet 212, PT 16.1, INR 1.4, PTT 32. Sodium 138, potassium 3.3, chloride 105, bicarbonate 20, BUN 26, creatinine 1.1, GFR 50, total protein 6.2, triglyceride 116, cholesterol less than 50, LDL less than 30, HDL 11. Urine shows 3+ blood, 2+ proteinuria, profuse wbc's. Occult blood stool is positive for blood. CONCLUSION: Ms. Ama Goldman is presenting with change in mental status. Neurological examination consistent with left-sided weakness, probably secondary to right subcortical dysfunction. Considering her risk factors, probably a metastatic process versus ischemic process should be ruled out. RECOMMENDATION: 1. Continue aspirin for now until GI hold on aspirin. 2. MRI of the brain, echocardiogram, carotid Doppler and EEG is requested. The patient should be kept seizure precaution and aspiration precaution. The patient will be followed closely with you. Jagdish Madrigal MD
[2017-09-05] MEDS ORDERED: Potassium Chloride 20 mEq ER Tab PO ONE (10:00)
[2017-09-05] MEDS: Enoxaparin 40 mg Syringe SC SCH ×2 (10:00→11:15)
[2017-09-05] MEDS: Pantoprazole 40 mg EC Tab PO SCH ×2 (10:00→11:15)
[2017-09-05] MEDS ORDERED: Potassium Chloride 20 mEq ER Tab PO SCH ×2 (10:30→13:45)
--- NOTE | 2017-09-05 11:12 | VASCLAB ---
PROCEDURE: HISTORY: STENOSIS COMPARISON: None available. TECHNIQUE: Grayscale and duplex Doppler evaluation of the cervical carotid and vertebral arteries were performed. The common carotid, carotid bifurcations and cervical Internal Carotid Artery (ICA) and proximal External Carotid Artery (ECA) were evaluated. The vertebral arteries were evaluated for gross patency and flow direction. Report prepared by Juan Carlos Benson, BS, RVT FINDINGS: RIGHT CAROTID ARTERIES: 1. Common Carotid Artery: No significant focal plaque formation of the right common carotid artery. Maximum Peak Systolic velocity: 74 cm/sec: End-diastolic velocity 21 cm/sec. 2. Carotid Bifurcation: Heterogeneous plaque formation. Maximum Peak Systolic velocity: 59 cm/sec: End-diastolic velocity 14 cm/sec. 3. Internal Carotid Artery: Plaque description: Heterogeneous 3.1. Proximal Segment: Peak systolic velocity 48 cm/sec: End-diastolic velocity 15 cm/sec - % stenosis 0-15% 3.2. Middle Segment: Peak systolic velocity 63 cm/sec: End-diastolic velocity 13 cm/sec - % stenosis 0-15% 3.3. Distal Segment: Peak systolic velocity 66 cm/sec: End-diastolic velocity 24 cm/sec - % stenosis 0-15% 4. External Carotid Artery: No significant focal plaque formation. Peak systolic velocity 86 cm/sec 5. ICA/CCA Ratio: 1.0 LEFT CAROTID ARTERIES: 1. Common Carotid Artery: No significant focal plaque formation of the left common carotid artery. Maximum Peak Systolic velocity: 102 cm/sec: End-diastolic velocity 12 cm/sec. 2. Carotid Bifurcation: Heterogeneous plaque formation. Maximum Peak Systolic velocity: 64 cm/sec: End-diastolic velocity 17 cm/sec. 3. Internal Carotid Artery: Plaque description: Heterogeneous 3.1. Proximal Segment: Peak systolic velocity 75 cm/sec: End-diastolic velocity 22 cm/sec - % stenosis 0-15% 3.2. Middle Segment: Peak systolic velocity 60 cm/sec: End-diastolic velocity 24 cm/sec - % stenosis 0-15% 3.3. Distal Segment: Peak systolic velocity 69 cm/sec: End-diastolic velocity 24 cm/sec - % stenosis 4. External Carotid Artery: No significant focal plaque formation. Peak systolic velocity 101 cm/sec 5. ICA/CCA Ratio: 1.5 VERTEBRAL ARTERIES: 1. Right Vertebral Artery: The right vertebral artery flow direction is antegrade. 2. Left Vertebral Artery: The left vertebral artery flow direction is antegrade. OTHER FINDINGS: 1. Right Brachial Blood pressure:unable to obtain 2. Left Brachial Blood pressure: Unable to obtain IMPRESSION: RIGHT: Duplex scan does not suggest hemodynamically significant stenosis of the right extracranial carotid arteries. LEFT: Duplex scan does not suggest hemodynamically significant stenosis of the left extracranial carotid arteries.
--- NOTE | 2017-09-05 13:14 | CARD ---
APPROVED REPORT EXAM: Two-dimensional and M-mode echocardiogram with Doppler and color Doppler. Other Information Quality : Technically LimitedRhythm : INDICATION Sepsis/ Cardio Embolic Stroke / Peritoneal Cancer RISK FACTORS Hypertension 2D DIMENSIONS IVSd0.7 (0.7-1.1cm)LVDd4.0 (3.9-5.9cm) PWd0.8 (0.7-1.1cm)LVDs2.3 (2.5-4.0cm) FS (%) 42.5 %LVEF (%)74.1 (>50%) M-Mode DIMENSIONS Left Atrium (MM)3.21 (2.5-4.0cm)Aortic Root3.03 (2.2-3.7cm) Aortic Cusp Exc.1.73 (1.5-2.0cm) Mitral Valve MV E Qztradqk72.1cm/sMV A Gslxphlm91.0cm/sE/A ratio0.7 TDI E/Lateral E'0.0E/Medial E'0.0 Tricuspid Valve TR Peak [id number]/sTR Peak [id number] LEFT VENTRICLE The left ventricle is normal size. There is normal left ventricular wall thickness. Left ventricle systolic function is normal. The Ejection Fraction is >70%. There is normal LV segmental wall motion. Transmitral Doppler flow pattern is Grade I-abnormal relaxation pattern. There is no ventricular septal defect visualized. RIGHT VENTRICLE The right ventricle is normal size. The right ventricular systolic function is normal. ATRIA The left atrium is mildly dilated. The right atrium size is normal. AORTIC VALVE The aortic valve is mildly sclerotic. The aortic valve is tri-cuspid. No aortic regurgitation is present. There is no aortic valvular stenosis. MITRAL VALVE The mitral valve is normal in structure. There is no evidence of mitral valve prolapse. Mitral regurgitation is mild. TRICUSPID VALVE The tricuspid valve is normal in structure. There is trace tricuspid regurgitation. Right ventricular systolic pressure is estimated at 30-40 mmHg. There is mild pulmonary hypertension. PULMONIC VALVE The pulmonic valve is not well visualized. There is no pulmonic valvular regurgitation. GREAT VESSELS The aortic root is normal in size. The IVC is normal in size and collapses >50% with inspiration. <Conclusion> Left ventricle systolic function is normal. The Ejection Fraction is >70%. Transmitral Doppler flow pattern is Grade I-abnormal relaxation pattern. Mitral regurgitation is mild. There is mild pulmonary hypertension. Suboptimal study.
--- NOTE | 2017-09-05 13:34 | CARD ---
APPROVED REPORT EKG Measurement Heart [id number] <Conclusion> Sinus tachycardia Nonspecific ST and T wave abnormality Baseline abnormalities and artifact suggest repeat Abnormal ECG
--- NOTE | 2017-09-05 16:53 | CP.PCM.PN ---
Subjective - Date & Time of Evaluation Date of Evaluation: 09/05/17 Time of Evaluation: 16:50 - Subjective Subjective: Surgery: Dr. Reeder Pt seen and examined. Resting comfortably in bed. Pt is confused and slight agitated. No acute events per nursing Objective - Vital Signs/Intake and Output Vital Signs (last 24 hours): Temp Pulse Resp BP Pulse Ox 97.7 F 96 H 18 125/77 100 09/05/17 07:00 09/05/17 07:00 09/05/17 07:00 09/05/17 07:00 09/05/17 13:10 Intake and Output: 09/05/17 09/05/17 06:59 18:59 Intake Total 725 625 Output Total 700 Balance 25 625 - Medications Medications: Current Medications Al Hydrox/Mg Hydrox/Simethicone (Maalox 30 Ml) 30 ml PO Q4 PRN PRN Reason: heartburn Aspirin (Ecotrin) 81 mg PO DAILY [facility] Last Admin: 09/05/17 11:30 Dose: Not Given Enoxaparin Sodium (Lovenox) 40 mg SC DAILY [facility] Last Admin: 09/05/17 11:15 Dose: 40 mg Gabapentin (Neurontin) 300 mg PO BID [facility] Last Admin: 09/05/17 11:15 Dose: Not Given Dextrose (Dextrose 10% In Water) 1,000 mls @ 25 mls/hr IV .Q24H [facility] Last Admin: 09/04/17 19:38 Dose: 25 mls/hr Piperacillin Sod/Tazobactam Sod (Zosyn 3.375 Gm Iv Premix) 3.375 gm in 50 mls @ 100 mls/hr IVPB Q6H [facility] Last Admin: 09/05/17 14:50 Dose: 100 mls/hr Potassium Chloride (Potassium Chloride 20 Meq/100 Ml) 20 meq in 100 mls @ 50 mls/hr IVPB Q4H [facility] Stop: 09/05/17 20:59 Last Admin: 09/05/17 15:00 Dose: 50 mls/hr Lorazepam (Ativan) 1 mg IVP ONCE PRN PRN Reason: Agitation Morphine Sulfate (Morphine) 2 mg IVP Q4 PRN PRN Reason: pain Stop: 09/08/17 16:15 Last Admin: 09/05/17 16:48 Dose: 2 mg Ondansetron HCl (Zofran Tab) 4 mg PO Q8 PRN PRN Reason: nausea Pantoprazole Sodium (Protonix Ec Tab) 40 mg PO DAILY [facility] Last Admin: 09/05/17 11:15 Dose: Not Given - Labs Labs: 09/05/17 06:38 09/05/17 06:38 PT 16.1 SECONDS (9.7-12.2) H 09/04/17 14:19 INR 1.4 09/04/17 14:19 APTT 32 SECONDS (21-34) 09/04/17 14:19 - Constitutional Appears: Non-toxic, No Acute Distress, Agitated - Head Exam Head Exam: ATRAUMATIC, NORMOCEPHALIC - Eye Exam Eye Exam: EOMI - ENT Exam ENT Exam: Mucous Membranes Moist - Neck Exam Neck Exam: Full ROM - Respiratory Exam Respiratory Exam: NORMAL BREATHING PATTERN. absent: Accessory Muscle Use, Respiratory Distress - GI/Abdominal Exam GI & Abdominal Exam: Soft. absent: Distended, Tenderness Additional comments: 6x3cm mid line abd wound, good grannulation tissue at base, serous drainage, no odor, no necrotic tissue - Extremities Exam Extremities Exam: absent: Calf Tenderness, Pedal Edema - Neurological Exam Neurological Exam: Alert, Awake - Psychiatric Exam Psychiatric exam: Normal Mood - Skin Skin Exam: Dry, Normal Color, Warm Assessment and Plan - Assessment and Plan (Free Text) Assessment: 62F w. delayed wound closure -wound vac placed at bedside -will change every 3-4 days -d/w attending Zemaitis PGY3
--- NOTE | 2017-09-05 19:17 | CP.PCM.PN ---
Subjective - Date & Time of Evaluation Date of Evaluation: 09/05/17 Time of Evaluation: 11:40 - Subjective Subjective: clinically same Objective - Vital Signs/Intake and Output Vital Signs (last 24 hours): Temp Pulse Resp BP Pulse Ox 98.3 F 84 20 123/77 95 09/05/17 16:00 09/05/17 16:30 09/05/17 16:00 09/05/17 16:00 09/05/17 16:00 Intake and Output: 09/05/17 09/06/17 18:59 06:59 Intake Total 625 Balance 625 - Medications Medications: Current Medications Al Hydrox/Mg Hydrox/Simethicone (Maalox 30 Ml) 30 ml PO Q4 PRN PRN Reason: heartburn Aspirin (Ecotrin) 81 mg PO DAILY [facility] Last Admin: 09/05/17 11:30 Dose: Not Given Enoxaparin Sodium (Lovenox) 40 mg SC DAILY [facility] Last Admin: 09/05/17 11:15 Dose: 40 mg Gabapentin (Neurontin) 300 mg PO BID [facility] Last Admin: 09/05/17 18:08 Dose: 300 mg Dextrose (Dextrose 10% In Water) 1,000 mls @ 25 mls/hr IV .Q24H [facility] Last Admin: 09/05/17 18:09 Dose: 25 mls/hr Piperacillin Sod/Tazobactam Sod (Zosyn 3.375 Gm Iv Premix) 3.375 gm in 50 mls @ 100 mls/hr IVPB Q6H [facility] Last Admin: 09/05/17 14:50 Dose: 100 mls/hr Potassium Chloride (Potassium Chloride 20 Meq/100 Ml) 20 meq in 100 mls @ 50 mls/hr IVPB Q4H [facility] Stop: 09/05/17 20:59 Last Admin: 09/05/17 18:07 Dose: 50 mls/hr Lorazepam (Ativan) 1 mg IVP ONCE PRN PRN Reason: Agitation Morphine Sulfate (Morphine) 2 mg IVP Q4 PRN PRN Reason: pain Stop: 09/08/17 16:15 Last Admin: 09/05/17 16:48 Dose: 2 mg Ondansetron HCl (Zofran Tab) 4 mg PO Q8 PRN PRN Reason: nausea Pantoprazole Sodium (Protonix Ec Tab) 40 mg PO DAILY [facility] Last Admin: 09/05/17 11:15 Dose: Not Given - Labs Labs: 09/05/17 06:38 09/05/17 06:38 PT 16.1 SECONDS (9.7-12.2) H 09/04/17 14:19 INR 1.4 09/04/17 14:19 APTT 32 SECONDS (21-34) 09/04/17 14:19 - Constitutional Appears: Well - Head Exam Head Exam: ATRAUMATIC, NORMAL INSPECTION, NORMOCEPHALIC - Eye Exam Eye Exam: EOMI, Normal appearance, PERRL Pupil Exam: NORMAL ACCOMODATION, PERRL - ENT Exam ENT Exam: Mucous Membranes Moist, Normal Exam - Neck Exam Neck Exam: Full ROM, Normal Inspection. absent: Lymphadenopathy - Respiratory Exam Respiratory Exam: Clear to Ausculation Bilateral, NORMAL BREATHING PATTERN - Cardiovascular Exam Cardiovascular Exam: REGULAR RHYTHM, +S1, +S2. absent: Murmur - GI/Abdominal Exam GI & Abdominal Exam: Soft, Normal Bowel Sounds. absent: Tenderness - Rectal Exam Rectal Exam: Deferred - Extremities Exam Extremities Exam: Full ROM, Normal Capillary Refill, Normal Inspection. 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 Patient is resting comfortably. Patient is slightly confused. Laboratory investigation shows a, stool for occult blood positive, and urinalysis shows possible urinary tract infection. Continue piperacillin tazobactam. Continue aspirin. Continue supportive care.
[2017-09-05] MEDS ORDERED: Potassium Chloride 20 mEq ER Tab PO STA (20:22)
[2017-09-06] MEDS: Piperacill/Tazo 3.375gm in Dex 3.375 GM/50 ML BAG IVPB SCH ×4 (01:34→19:26)
[2017-09-06 07:20] LABS: EOS # 0.1 K/uL (0.0-0.7); EOS % 0.6 % (0.0-4.0); HEMATOCRIT 25.1 % (34.0-47.0)
[2017-09-06 07:38] LABS: BASO % 0.1 % (0.0-2.0); LYMPH # 1.5 K/uL (1.0-4.3); LYMPH % 9.2 % (20.0-40.0); MEAN CORPUSCULAR HEMOGLOBIN 31.7 pg (27.0-31.0); MEAN CORPUSCULAR HGB CONC 33.1 g/dL (33.0-37.0); MEAN PLATELET VOLUME 8.9 fL (7.2-11.7); MONO # 0.7 K/uL (0.0-0.8); MONO % 4.3 % (0.0-10.0); NRBC % 0.4 % (0.0-2.0); PLATELET COUNT 116 K/uL (130-400); RED CELL DISTRIBUTION WIDTH 25.3 % (11.5-14.5); WHITE BLOOD COUNT 15.9 K/uL (4.8-10.8)
--- NOTE | 2017-09-06 08:04 | CP.PCM.PN ---
Subjective - Date & Time of Evaluation Date of Evaluation: 09/06/17 Time of Evaluation: 07:00 - Subjective Subjective: GENERAL SURGERY PROGRESS NOTE FOR DR. BRADSHAW Patient seen and examined at bedside. Patient had some agitation and confusion overnight per nurse. Patient denies pain. No nausea or vomiting. Wound vac functioning with no leak. Objective - Vital Signs/Intake and Output Vital Signs (last 24 hours): Temp Pulse Resp BP Pulse Ox 98.5 F 88 20 128/70 99 09/05/17 23:35 09/06/17 00:00 09/05/17 23:35 09/05/17 23:35 09/05/17 23:35 Intake and Output: 09/06/17 09/06/17 06:59 18:59 Intake Total 600 Output Total 700 Balance -100 - Medications Medications: Current Medications Al Hydrox/Mg Hydrox/Simethicone (Maalox 30 Ml) 30 ml PO Q4 PRN PRN Reason: heartburn Aspirin (Ecotrin) 81 mg PO DAILY [facility] Last Admin: 09/05/17 11:30 Dose: Not Given Enoxaparin Sodium (Lovenox) 40 mg SC DAILY [facility] Last Admin: 09/05/17 11:15 Dose: 40 mg Gabapentin (Neurontin) 300 mg PO BID [facility] Last Admin: 09/05/17 18:08 Dose: 300 mg Dextrose (Dextrose 10% In Water) 1,000 mls @ 25 mls/hr IV .Q24H [facility] Last Admin: 09/05/17 18:09 Dose: 25 mls/hr Piperacillin Sod/Tazobactam Sod (Zosyn 3.375 Gm Iv Premix) 3.375 gm in 50 mls @ 100 mls/hr IVPB Q6H [facility] Last Admin: 09/06/17 07:48 Dose: 100 mls/hr Lorazepam (Ativan) 1 mg IVP ONCE PRN PRN Reason: Agitation Morphine Sulfate (Morphine) 2 mg IVP Q4 PRN PRN Reason: pain Stop: 09/08/17 16:15 Last Admin: 09/06/17 04:55 Dose: 2 mg Ondansetron HCl (Zofran Tab) 4 mg PO Q8 PRN PRN Reason: nausea Pantoprazole Sodium (Protonix Ec Tab) 40 mg PO DAILY [facility] Last Admin: 09/05/17 11:15 Dose: Not Given - Labs Labs: 09/06/17 07:13 09/05/17 06:38 PT 16.1 SECONDS (9.7-12.2) H 09/04/17 14:19 INR 1.4 09/04/17 14:19 APTT 32 SECONDS (21-34) 09/04/17 14:19 - Constitutional Appears: Non-toxic, No Acute Distress - Respiratory Exam Respiratory Exam: NORMAL BREATHING PATTERN. absent: Respiratory Distress - Cardiovascular Exam Cardiovascular Exam: +S1, +S2 - GI/Abdominal Exam GI & Abdominal Exam: Soft. absent: Distended, Tenderness Additional comments: Midline wound vac in place, on 125mmhg suction, no leak Assessment and Plan - Assessment and Plan (Free Text) Assessment: 62yo F with delayed wound closure - Wound vac placed yesterday - Functioning well, on 125mmHg suction, no leak - Will change again on 09/08 - Discussed plan with Dr. Varinder Arteaga PGY-3
[2017-09-06] MEDS: Enoxaparin 40 mg Syringe SC SCH (10:57)
[2017-09-06] MEDS: Pantoprazole 40 mg EC Tab PO SCH (10:57)
[2017-09-06 11:08] LABS: EOSINOPHIL 1 % (0-4); NEUTROPHIL 82 % (50-75); TOTAL CELLS COUNTED 100
--- NOTE | 2017-09-06 16:59 | CP.PCM.PN ---
Subjective - Date & Time of Evaluation Date of Evaluation: 09/06/17 Time of Evaluation: 21:30 - Subjective Subjective: clinically same. Objective - Vital Signs/Intake and Output Vital Signs (last 24 hours): Temp Pulse Resp BP Pulse Ox 97.8 F 90 18 111/72 98 09/06/17 15:20 09/06/17 15:20 09/06/17 15:20 09/06/17 15:20 09/06/17 15:20 Intake and Output: 09/06/17 09/06/17 06:59 18:59 Intake Total 600 200 Output Total 700 400 Balance -100 -200 - Medications Medications: Current Medications Al Hydrox/Mg Hydrox/Simethicone (Maalox 30 Ml) 30 ml PO Q4 PRN PRN Reason: heartburn Aspirin (Ecotrin) 81 mg PO DAILY [facility] Last Admin: 09/06/17 10:57 Dose: 81 mg Enoxaparin Sodium (Lovenox) 40 mg SC DAILY [facility] Last Admin: 09/06/17 10:57 Dose: 40 mg Gabapentin (Neurontin) 300 mg PO BID [facility] Last Admin: 09/06/17 10:57 Dose: 300 mg Dextrose (Dextrose 10% In Water) 1,000 mls @ 25 mls/hr IV .Q24H [facility] Last Admin: 09/05/17 18:09 Dose: 25 mls/hr Piperacillin Sod/Tazobactam Sod (Zosyn 3.375 Gm Iv Premix) 3.375 gm in 50 mls @ 100 mls/hr IVPB Q6H [facility] Last Admin: 09/06/17 13:14 Dose: 100 mls/hr Lorazepam (Ativan) 1 mg IVP ONCE PRN PRN Reason: Agitation Morphine Sulfate (Morphine) 2 mg IVP Q4 PRN PRN Reason: pain Stop: 09/08/17 16:15 Last Admin: 09/06/17 11:07 Dose: 2 mg Ondansetron HCl (Zofran Tab) 4 mg PO Q8 PRN PRN Reason: nausea Pantoprazole Sodium (Protonix Ec Tab) 40 mg PO DAILY [facility] Last Admin: 09/06/17 10:57 Dose: 40 mg - Labs Labs: 09/06/17 07:13 09/05/17 06:38 PT 16.1 SECONDS (9.7-12.2) H 09/04/17 14:19 INR 1.4 09/04/17 14:19 APTT 32 SECONDS (21-34) 09/04/17 14:19 - Constitutional Appears: Well - Head Exam Head Exam: ATRAUMATIC, NORMAL INSPECTION, NORMOCEPHALIC - Eye Exam Eye Exam: EOMI, Normal appearance, PERRL Pupil Exam: NORMAL ACCOMODATION, PERRL - ENT Exam ENT Exam: Mucous Membranes Moist, Normal Exam - Neck Exam Neck Exam: Full ROM, Normal Inspection. absent: Lymphadenopathy - Cardiovascular Exam Cardiovascular Exam: REGULAR RHYTHM, +S1, +S2. absent: Murmur - GI/Abdominal Exam GI & Abdominal Exam: Soft, Normal Bowel Sounds. absent: Tenderness - Rectal Exam Rectal Exam: Deferred - Extremities Exam Extremities Exam: Full ROM, Normal Capillary Refill, Normal Inspection. 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 Slight agitation present. Continue piperacillin tazobactam. Continue supportive care.
[2017-09-07] MEDS: Piperacill/Tazo 3.375gm in Dex 3.375 GM/50 ML BAG IVPB SCH ×4 (02:04→19:15)
[2017-09-07] MEDS: Enoxaparin 40 mg Syringe SC SCH (09:52)
[2017-09-07] MEDS: Pantoprazole 40 mg EC Tab PO SCH ×2 (09:52→11:46)
--- NOTE | 2017-09-07 17:07 | PN ---
DATE: 09/07/2017 NEUROLOGICAL PROBLEM: Change in mental status, rule out intracranial pathology. PHYSICAL EXAMINATION: VITAL SIGNS: Blood pressure 139/80, mean arterial pressure of 99, respiratory rate 18, temperature 98.4, pulse rate 89, regular. The patient examination, mentation seems to be normal for her age and previous exam. She knows where she is. She is moving all 4 extremities. She could eat on her own without any assistance. Examination was unchanged compared with the previous exam. The patient does not want to have MRI of the brain. I respect her concern. I explained her the reason for the MRI of the brain; however, even though she knew what I said, she does not want to have MRI of the brain at this point. Electroencephalogram shows a bilateral slow activities without any paroxysmal activities. At this point, no further workup or further intervention is needed from neurological point of view. The patient will be signed off for neurological followup. If anything changed, please to contact me. Jagdish Madrigal MD
--- NOTE | 2017-09-07 17:57 | CP.PCM.PN ---
Subjective - Date & Time of Evaluation Date of Evaluation: 09/07/17 Time of Evaluation: 11:40 - Subjective Subjective: clinically same Objective - Vital Signs/Intake and Output Vital Signs (last 24 hours): Temp Pulse Resp BP Pulse Ox 97.5 F L 92 H 20 122/84 94 L 09/07/17 15:21 09/07/17 15:21 09/07/17 15:21 09/07/17 15:21 09/07/17 15:21 Intake and Output: 09/07/17 09/07/17 06:59 18:59 Intake Total 550 Output Total 575 Balance -25 - Medications Medications: Current Medications Al Hydrox/Mg Hydrox/Simethicone (Maalox 30 Ml) 30 ml PO Q4 PRN PRN Reason: heartburn Aspirin (Ecotrin) 81 mg PO DAILY [facility] Last Admin: 09/07/17 11:45 Dose: 81 mg Enoxaparin Sodium (Lovenox) 40 mg SC DAILY [facility] Last Admin: 09/07/17 09:52 Dose: 40 mg Gabapentin (Neurontin) 300 mg PO BID [facility] Last Admin: 09/07/17 11:45 Dose: 300 mg Dextrose (Dextrose 10% In Water) 1,000 mls @ 25 mls/hr IV .Q24H [facility] Last Admin: 09/06/17 19:00 Dose: 25 mls/hr Piperacillin Sod/Tazobactam Sod (Zosyn 3.375 Gm Iv Premix) 3.375 gm in 50 mls @ 100 mls/hr IVPB Q6H [facility] Last Admin: 09/07/17 15:50 Dose: 100 mls/hr Lorazepam (Ativan) 1 mg IVP ONCE PRN PRN Reason: Agitation Last Admin: 09/07/17 13:55 Dose: 1 mg Morphine Sulfate (Morphine) 2 mg IVP Q4 PRN PRN Reason: pain Stop: 09/08/17 16:15 Last Admin: 09/07/17 13:54 Dose: 2 mg Ondansetron HCl (Zofran Tab) 4 mg PO Q8 PRN PRN Reason: nausea Oxycodone/Acetaminophen (Percocet 5/325 Mg Tab) 1 tab PO Q6H PRN PRN Reason: Pain, severe (8-10) Stop: 09/10/17 15:01 Pantoprazole Sodium (Protonix Ec Tab) 40 mg PO DAILY [facility] Last Admin: 09/07/17 11:46 Dose: 40 mg - Labs Labs: 09/06/17 07:13 09/05/17 06:38 PT 16.1 SECONDS (9.7-12.2) H 09/04/17 14:19 INR 1.4 09/04/17 14:19 APTT 32 SECONDS (21-34) 09/04/17 14:19 - Constitutional Appears: Well - Head Exam Head Exam: ATRAUMATIC, NORMAL INSPECTION, NORMOCEPHALIC - Eye Exam Eye Exam: EOMI, Normal appearance, PERRL Pupil Exam: NORMAL ACCOMODATION, PERRL - ENT Exam ENT Exam: Mucous Membranes Moist, Normal Exam - Neck Exam Neck Exam: Full ROM, Normal Inspection. 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 Slight agitation present. Continue piperacillin tazobactam. Continue supportive care.
[2017-09-07] MEDS: Vitamins A & D Oint UD Foilpak TOP SCH (22:41)
[2017-09-08] MEDS: Piperacill/Tazo 3.375gm in Dex 3.375 GM/50 ML BAG IVPB SCH ×4 (02:23→22:30)
[2017-09-08] MEDS: Oxycodone/Acetaminophen 5/325 mg Tab PO PRN ×2 (06:48→17:30)
[2017-09-08 07:44] LABS: BASO % 0.2 % (0.0-2.0); EOS # 0.1 K/uL (0.0-0.7); EOS % 0.9 % (0.0-4.0); HEMATOCRIT 16.3 % (34.0-47.0); LYMPH % 11.5 % (20.0-40.0); MEAN CORPUSCULAR HEMOGLOBIN 32.6 pg (27.0-31.0); MEAN CORPUSCULAR HGB CONC 32.3 g/dL (33.0-37.0); MEAN PLATELET VOLUME 9.5 fL (7.2-11.7); MONO # 0.5 K/uL (0.0-0.8); MONO % 6.3 % (0.0-10.0); NRBC % 0.1 % (0.0-2.0); RED CELL DISTRIBUTION WIDTH 27.5 % (11.5-14.5); WHITE BLOOD COUNT 8.6 K/uL (4.8-10.8)
[2017-09-08 08:06] LABS: MEAN CELL VOLUME 100.7 fL (81.0-99.0)
[2017-09-08 08:42] LABS: ALB/GLOB RATIO 0.6 (1.0-2.1); ALKALINE PHOSPHATASE 57 U/L (38-126); ALT/SGPT 22 U/L (9-52); AST/SGOT 32 U/L (14-36); BILIRUBIN,TOTAL 1.1 mg/dL (0.2-1.3); BLOOD UREA NITROGEN 11 mg/dL (7-17); CALCIUM 4.6 mg/dl (8.6-10.4); CARBON DIOXIDE 16 mmol/L (22-30); CHLORIDE 112 mmol/L (98-107); GFR AFRICAN-AMERICAN > 60; GLUCOSE,RANDOM 114 mg/dL (65-105); SODIUM 136 mmol/L (132-148); TOTAL PROTEIN 3.8 g/dL (6.3-8.3)
[2017-09-08 08:43] LABS: POTASSIUM 2.3 mmol/L (3.6-5.2)
[2017-09-08] MEDS ORDERED: Potassium Chloride 20 mEq ER Tab PO STA (08:49)
[2017-09-08 09:47] LABS: HEMATOCRIT 22.4 % (34.0-47.0); MEAN CORPUSCULAR HEMOGLOBIN 31.9 pg (27.0-31.0); MEAN CORPUSCULAR HGB CONC 32.3 g/dL (33.0-37.0); MEAN PLATELET VOLUME 9.2 fL (7.2-11.7); RED CELL DISTRIBUTION WIDTH 28.3 % (11.5-14.5); WHITE BLOOD COUNT 12.8 K/uL (4.8-10.8)
[2017-09-08 09:51] LABS: MEAN CELL VOLUME 98.5 fL (81.0-99.0)
[2017-09-08 10:06] LABS: ALB/GLOB RATIO 0.7 (1.0-2.1); ALKALINE PHOSPHATASE 92 U/L (38-126); ALT/SGPT 28 U/L (9-52); AST/SGOT 37 U/L (14-36); BILIRUBIN,TOTAL 1.2 mg/dL (0.2-1.3); BLOOD UREA NITROGEN 15 mg/dL (7-17); CALCIUM 6.5 mg/dl (8.6-10.4); CARBON DIOXIDE 23 mmol/L (22-30); CHLORIDE 100 mmol/L (98-107); GFR AFRICAN-AMERICAN > 60; GLUCOSE,RANDOM 82 mg/dL (65-105); MAGNESIUM 1.1 mg/dL (1.6-2.3); POTASSIUM 2.9 mmol/L (3.6-5.2); SODIUM 131 mmol/L (132-148); TOTAL PROTEIN 5.1 g/dL (6.3-8.3)
--- NOTE | 2017-09-08 10:20 | CP.PCM.PN ---
Subjective - Date & Time of Evaluation Date of Evaluation: 09/08/17 Time of Evaluation: 08:30 - Subjective Subjective: General Surgery- Dr. Varinder Nj S&E at bedside this AM. no acute events overnight per nursing. Wound vac currently in place w/ no leaks. Denies fevers, chills, chest pain, shortness of breath, nausea, vomiting, diarrhea Objective - Vital Signs/Intake and Output Vital Signs (last 24 hours): Temp Pulse Resp BP Pulse Ox 97.7 F 92 H 18 108/72 100 09/08/17 08:35 09/08/17 08:35 09/08/17 08:35 09/08/17 08:35 09/08/17 08:35 Intake and Output: 09/08/17 09/08/17 06:59 18:59 Intake Total 520 Output Total 1350 Balance -830 - Medications Medications: Current Medications Al Hydrox/Mg Hydrox/Simethicone (Maalox 30 Ml) 30 ml PO Q4 PRN PRN Reason: heartburn Aspirin (Ecotrin) 81 mg PO DAILY [facility] Last Admin: 09/07/17 11:45 Dose: 81 mg Enoxaparin Sodium (Lovenox) 40 mg SC DAILY [facility] Last Admin: 09/07/17 09:52 Dose: 40 mg Gabapentin (Neurontin) 300 mg PO BID [facility] Last Admin: 09/07/17 18:00 Dose: Not Given Piperacillin Sod/Tazobactam Sod (Zosyn 3.375 Gm Iv Premix) 3.375 gm in 50 mls @ 100 mls/hr IVPB Q6H [facility] Last Admin: 09/08/17 02:23 Dose: 100 mls/hr Dextrose (Dextrose 10% In Water) 1,000 mls @ 25 mls/hr IV .Q24H [facility] Lorazepam (Ativan) 1 mg IVP ONCE PRN PRN Reason: Agitation Last Admin: 09/07/17 13:55 Dose: 1 mg Morphine Sulfate (Morphine) 2 mg IVP Q4 PRN PRN Reason: pain Stop: 09/08/17 16:15 Last Admin: 09/07/17 13:54 Dose: 2 mg Ondansetron HCl (Zofran Tab) 4 mg PO Q8 PRN PRN Reason: nausea Oxycodone/Acetaminophen (Percocet 5/325 Mg Tab) 1 tab PO Q6H PRN PRN Reason: Pain, severe (8-10) Stop: 09/10/17 15:01 Last Admin: 09/08/17 06:48 Dose: 1 tab Pantoprazole Sodium (Protonix Ec Tab) 40 mg PO DAILY [facility] Last Admin: 09/07/17 11:46 Dose: 40 mg Vitamin A (Vitamin A & D Oint Ud Foilpak) 1 ea TOP DAILY [facility] Last Admin: 09/07/17 22:41 Dose: 1 ea - Labs Labs: 09/08/17 09:38 09/08/17 09:38 PT 16.1 SECONDS (9.7-12.2) H 09/04/17 14:19 INR 1.4 09/04/17 14:19 APTT 32 SECONDS (21-34) 09/04/17 14:19 - Constitutional Appears: Non-toxic, No Acute Distress - Head Exam Head Exam: ATRAUMATIC - Eye Exam Eye Exam: EOMI, Scleral icterus - ENT Exam ENT Exam: Mucous Membranes Moist - Respiratory Exam Respiratory Exam: NORMAL BREATHING PATTERN. absent: Accessory Muscle Use, Respiratory Distress - Cardiovascular Exam Cardiovascular Exam: +S1, +S2 - GI/Abdominal Exam GI & Abdominal Exam: Soft. absent: Distended, Guarding, Tenderness Additional comments: midline wound [id number] - Extremities Exam Extremities Exam: absent: Calf Tenderness - Neurological Exam Neurological Exam: Alert, Awake, Oriented x3 - Skin Skin Exam: Warm Assessment and Plan - Assessment and Plan (Free Text) Assessment: 62F delayed wound closure w/ abd wound vac Plan: - Wound vac to be changed at bedside * 125mmHg suction, no leak - change q2-3 days - discussed w/ Dr. Reeder Surgical attending Shaun Holbrook PGY1
[2017-09-08] MEDS: Vitamins A & D Oint UD Foilpak TOP SCH (10:26)
[2017-09-08] MEDS: Pantoprazole 40 mg EC Tab PO SCH (10:26)
[2017-09-08] MEDS: Enoxaparin 40 mg Syringe SC SCH ×2 (10:27→10:53)
--- NOTE | 2017-09-08 14:33 | CP.PCM.PN ---
Subjective - Date & Time of Evaluation Date of Evaluation: 09/08/17 Time of Evaluation: 10:00 - Subjective Subjective: clinically same Objective - Vital Signs/Intake and Output Vital Signs (last 24 hours): Temp Pulse Resp BP Pulse Ox 97.7 F 92 H 18 108/72 100 09/08/17 08:35 09/08/17 08:35 09/08/17 08:35 09/08/17 08:35 09/08/17 08:35 Intake and Output: 09/08/17 09/08/17 06:59 18:59 Intake Total 520 Output Total 1350 120 Balance -830 -120 - Medications Medications: Current Medications Al Hydrox/Mg Hydrox/Simethicone (Maalox 30 Ml) 30 ml PO Q4 PRN PRN Reason: heartburn Aspirin (Ecotrin) 81 mg PO DAILY [facility] Last Admin: 09/08/17 10:26 Dose: 81 mg Calcitriol (Rocaltrol) 0.25 mcg PO DAILY [facility] Last Admin: 09/08/17 11:36 Dose: 0.25 mcg Enoxaparin Sodium (Lovenox) 40 mg SC DAILY [facility] Last Admin: 09/08/17 10:53 Dose: Not Given Gabapentin (Neurontin) 300 mg PO BID [facility] Last Admin: 09/08/17 10:26 Dose: 300 mg Piperacillin Sod/Tazobactam Sod (Zosyn 3.375 Gm Iv Premix) 3.375 gm in 50 mls @ 100 mls/hr IVPB Q6H [facility] Last Admin: 09/08/17 10:26 Dose: 100 mls/hr Dextrose (Dextrose 10% In Water) 1,000 mls @ 25 mls/hr IV .Q24H [facility] Potassium Chloride (Potassium Chloride 20 Meq/100 Ml) 20 meq in 100 mls @ 50 mls/hr IVPB Q3H [facility] Stop: 09/09/17 03:59 Last Admin: 09/08/17 13:41 Dose: 50 mls/hr Calcium Gluconate 1,000 mg/ (Sodium Chloride) 110 mls @ 100 mls/hr IVPB ONCE ONE Stop: 09/08/17 14:35 Last Admin: 09/08/17 13:41 Dose: 100 mls/hr Lorazepam (Ativan) 1 mg IVP ONCE PRN PRN Reason: Agitation Last Admin: 09/07/17 13:55 Dose: 1 mg Morphine Sulfate (Morphine) 2 mg IVP Q4 PRN PRN Reason: pain Stop: 09/08/17 16:15 Last Admin: 09/08/17 10:26 Dose: 2 mg Ondansetron HCl (Zofran Tab) 4 mg PO Q8 PRN PRN Reason: nausea Oxycodone/Acetaminophen (Percocet 5/325 Mg Tab) 1 tab PO Q6H PRN PRN Reason: Pain, severe (8-10) Stop: 09/10/17 15:01 Last Admin: 09/08/17 06:48 Dose: 1 tab Pantoprazole Sodium (Protonix Ec Tab) 40 mg PO DAILY [facility] Last Admin: 09/08/17 10:26 Dose: 40 mg Vitamin A (Vitamin A & D Oint Ud Foilpak) 1 ea TOP DAILY [facility] Last Admin: 09/08/17 10:26 Dose: 1 ea - Labs Labs: 09/08/17 09:38 09/08/17 09:38 PT 16.1 SECONDS (9.7-12.2) H 09/04/17 14:19 INR 1.4 09/04/17 14:19 APTT 32 SECONDS (21-34) 09/04/17 14:19 - Constitutional Appears: Well - Head Exam Head Exam: ATRAUMATIC, NORMAL INSPECTION, NORMOCEPHALIC - Eye Exam Eye Exam: EOMI, Normal appearance, PERRL Pupil Exam: NORMAL ACCOMODATION, PERRL - ENT Exam ENT Exam: Mucous Membranes Moist, Normal Exam - Neck Exam Neck Exam: Full ROM, Normal Inspection. 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 Slight agitation present. Oral intake is poor. Continue piperacillin tazobactam. Continue supportive care.
[2017-09-09] MEDS: Piperacill/Tazo 3.375gm in Dex 3.375 GM/50 ML BAG IVPB SCH ×4 (02:30→20:13)
[2017-09-09] MEDS: Oxycodone/Acetaminophen 5/325 mg Tab PO PRN ×3 (03:38→16:18)
[2017-09-09] MEDS: Pantoprazole 40 mg EC Tab PO SCH (10:01)
[2017-09-09] MEDS: Vitamins A & D Oint UD Foilpak TOP SCH (10:01)
[2017-09-09] MEDS ORDERED: Iohexol 240 (50 ml) PO ONE (11:00)
[2017-09-09 11:09] LABS: EOS # 0.1 K/uL (0.0-0.7); HEMATOCRIT 31.7 % (34.0-47.0)
[2017-09-09] MEDS: Enoxaparin 40 mg Syringe SC SCH (11:12)
[2017-09-09 11:17] LABS: BASO % 0.2 % (0.0-2.0); EOS % 0.7 % (0.0-4.0); LYMPH # 1.2 K/uL (1.0-4.3); MEAN CORPUSCULAR HEMOGLOBIN 31.1 pg (27.0-31.0); MEAN CORPUSCULAR HGB CONC 33.5 g/dL (33.0-37.0); MEAN PLATELET VOLUME 9.5 fL (7.2-11.7); MONO % 7.7 % (0.0-10.0); PLATELET COUNT 132 K/uL (130-400); RED CELL DISTRIBUTION WIDTH 22.2 % (11.5-14.5)
[2017-09-09 11:24] LABS: ALB/GLOB RATIO 0.7 (1.0-2.1); ALKALINE PHOSPHATASE 90 U/L (38-126); ALT/SGPT 21 U/L (9-52); AST/SGOT 38 U/L (14-36); BILIRUBIN,TOTAL 2.2 mg/dL (0.2-1.3); BLOOD UREA NITROGEN 15 mg/dL (7-17); CARBON DIOXIDE 20 mmol/L (22-30); CHLORIDE 103 mmol/L (98-107); GFR AFRICAN-AMERICAN > 60; GLUCOSE,RANDOM 100 mg/dL (65-105); MEAN CELL VOLUME 92.9 fL (81.0-99.0); POTASSIUM 4.5 mmol/L (3.6-5.2); SODIUM 130 mmol/L (132-148); TOTAL PROTEIN 5.4 g/dL (6.3-8.3)
[2017-09-09 11:38] LABS: EOSINOPHIL 1 % (0-4); NEUTROPHIL 81 % (50-75); TOTAL CELLS COUNTED 100
--- NOTE | 2017-09-09 12:06 | CP.PCM.PN ---
Subjective - Date & Time of Evaluation Date of Evaluation: 09/09/17 Time of Evaluation: 11:00 - Subjective Subjective: General Surgery- Dr. Reeder Patient seen and examined at bedside this AM. patient received 2U of blood overnight. Pt having continued abdominal pain. has current nausea, denies vomiting, diarrhea, chest pain, shortness of breath. Objective - Vital Signs/Intake and Output Vital Signs (last 24 hours): Temp Pulse Resp BP Pulse Ox 97.6 F 89 20 130/74 100 09/09/17 09:21 09/09/17 09:21 09/09/17 09:21 09/09/17 09:21 09/09/17 09:21 Intake and Output: 09/09/17 09/09/17 06:59 18:59 Intake Total 1405 Output Total 1320 Balance 85 - Medications Medications: Current Medications Al Hydrox/Mg Hydrox/Simethicone (Maalox 30 Ml) 30 ml PO Q4 PRN PRN Reason: heartburn Aspirin (Ecotrin) 81 mg PO DAILY [facility] Last Admin: 09/09/17 10:01 Dose: 81 mg Calcitriol (Rocaltrol) 0.25 mcg PO DAILY [facility] Last Admin: 09/09/17 10:01 Dose: 0.25 mcg Enoxaparin Sodium (Lovenox) 40 mg SC DAILY [facility] Last Admin: 09/09/17 11:12 Dose: Not Given Gabapentin (Neurontin) 300 mg PO BID [facility] Last Admin: 09/09/17 10:01 Dose: 300 mg Piperacillin Sod/Tazobactam Sod (Zosyn 3.375 Gm Iv Premix) 3.375 gm in 50 mls @ 100 mls/hr IVPB Q6H [facility] Last Admin: 09/09/17 10:01 Dose: 100 mls/hr Dextrose (Dextrose 10% In Water) 1,000 mls @ 25 mls/hr IV .Q24H [facility] Lorazepam (Ativan) 1 mg IVP ONCE PRN PRN Reason: Agitation Last Admin: 09/07/17 13:55 Dose: 1 mg Ondansetron HCl (Zofran Tab) 4 mg PO Q8 PRN PRN Reason: nausea Oxycodone/Acetaminophen (Percocet 5/325 Mg Tab) 1 tab PO Q6H PRN PRN Reason: Pain, severe (8-10) Stop: 09/10/17 15:01 Last Admin: 09/09/17 10:01 Dose: 1 tab Pantoprazole Sodium (Protonix Ec Tab) 40 mg PO DAILY [facility] Last Admin: 09/09/17 10:01 Dose: 40 mg Vitamin A (Vitamin A & D Oint Ud Foilpak) 1 ea TOP DAILY [facility] Last Admin: 09/09/17 10:01 Dose: 1 ea - Labs Labs: 09/09/17 11:02 09/09/17 11:02 PT 16.1 SECONDS (9.7-12.2) H 09/04/17 14:19 INR 1.4 09/04/17 14:19 APTT 32 SECONDS (21-34) 09/04/17 14:19 - Constitutional Appears: Non-toxic, No Acute Distress - Head Exam Head Exam: ATRAUMATIC - Eye Exam Eye Exam: absent: Scleral icterus - ENT Exam ENT Exam: Mucous Membranes Dry - Respiratory Exam Respiratory Exam: NORMAL BREATHING PATTERN. absent: Accessory Muscle Use, Chest Wall Tenderness, Respiratory Distress - Cardiovascular Exam Cardiovascular Exam: +S1, +S2. absent: Bradycardia, Tachycardia - GI/Abdominal Exam GI & Abdominal Exam: Distended, Firm, Soft, Tenderness. absent: Guarding, Rigid Additional comments: wound vac in place. ecchymosis around the umbilicus, hard material on left side of abdomen. Right side is soft and non-tender - Extremities Exam Extremities Exam: absent: Calf Tenderness - Neurological Exam Neurological Exam: Alert, Awake, Oriented x3 - Psychiatric Exam Psychiatric exam: Normal Affect - Skin Skin Exam: Intact, Warm Assessment and Plan - Assessment and Plan (Free Text) Assessment: 62F hx of peritoneal cancer w/ delayed abdominal wound closure w/ wound vac Plan: - CT scan w/ PO contrast - continue w/ nutrition, protein shakes - replete lyte PRN - wound vac change q2-3 days - further recs per Dr. Varinder Holbrook PGY1
--- NOTE | 2017-09-09 12:49 | CT ---
PROCEDURE: CT scan of the abdomen and pelvis dated HISTORY: Rule out abscess or perforation COMPARISON: Comparison made with CT scan abdomen pelvis 09/04/2017. TECHNIQUE: Contiguous helical/transaxial images of the abdomen and pelvis performed without intravenous contrast material. There is oral contrast material seen within the bowel. . Coronal and Sagittal reformats generated. Radiation dose: Total exam DLP = 891.98 mGy-cm. This CT exam was performed using one or more of the following dose reduction techniques: Automated exposure control, adjustment of the mA and/or kV according to patient size, and/or use of iterative reconstruction technique. . FINDINGS: LOWER THORAX: Moderate-sized left effusion and mild to moderate left basilar atelectasis. Minimal right basilar atelectasis. Heart size within range of normal. No significant pericardial effusion. Small hiatal hernia. Re- demonstrated is a very large approximately 26.7 x 19 cm x 17 cm (CC x Trans x AP) heterogeneous mass in the left upper and mid abdomen which exerts considerable surrounding mass effect compressing surrounding structures including stomach, largest small bowel, liver, pancreas, spleen and gallbladder. The lesion not extends into the extraperitoneal space -abdominal soft tissues along its left anterolateral border. . This lesion is of uncertain etiology though presumed to represent malignant tumor. Clinical correlation recommended. The unenhanced liver exhibits moderate fatty hepatic infiltration. No obvious hepatic mass collection or calcification. No definitive evidence of intraluminal gallbladder calculi. Spleen appears grossly unremarkable on despite compression. Pancreas is poorly delineated. In situ right ureteral stent again noted. . There appears to be residual right-sided hydronephrosis. Urinary bladder is collapsed about an in situ unclamped Davis catheter and therefore cannot be adequately evaluated. Evaluation of the bowel is quite limited due to the compression and a paucity of contrast material. Questionable intraluminal urinary bladder calculi. There are there are a few right-sided subcutaneous nodules; rule metastases. The osseous structures appear grossly intact so far as can be seen. IMPRESSION: No significant interval change in the appearance of a very large heterogeneous mass within the mesentery of the upper abdomen when compared with prior study dated 09/04/2017. . . This lesion (presumed to represent malignant tumor) exerts considerable surrounding mass effect and compresses liver pancreas, gallbladder, liver and spleen as well as left kidney as well as small and large bowel. . The lesion also extends beyond the confines of the intraperitoneal cavity along its anterolateral border into the subcutaneous tissues. There is a few scattered anterior subcutaneous nodules are nonspecific. In situ right ureteral stent with moderate right-sided hydronephrosis. Moderate-sized left effusion and mild left basilar atelectasis. .
--- NOTE | 2017-09-09 16:57 | CP.PCM.PN ---
Subjective - Date & Time of Evaluation Date of Evaluation: 09/09/17 Time of Evaluation: 10:20 - Subjective Subjective: clinically same Objective - Vital Signs/Intake and Output Vital Signs (last 24 hours): Temp Pulse Resp BP Pulse Ox 98 F 93 H 20 138/91 H 100 09/09/17 16:30 09/09/17 16:30 09/09/17 16:30 09/09/17 16:30 09/09/17 16:30 Intake and Output: 09/09/17 09/09/17 06:59 18:59 Intake Total 1405 Output Total 1320 Balance 85 - Medications Medications: Current Medications Al Hydrox/Mg Hydrox/Simethicone (Maalox 30 Ml) 30 ml PO Q4 PRN PRN Reason: heartburn Aspirin (Ecotrin) 81 mg PO DAILY [facility] Last Admin: 09/09/17 10:01 Dose: 81 mg Calcitriol (Rocaltrol) 0.25 mcg PO DAILY [facility] Last Admin: 09/09/17 10:01 Dose: 0.25 mcg Enoxaparin Sodium (Lovenox) 40 mg SC DAILY [facility] Last Admin: 09/09/17 11:12 Dose: Not Given Gabapentin (Neurontin) 300 mg PO BID [facility] Last Admin: 09/09/17 10:01 Dose: 300 mg Piperacillin Sod/Tazobactam Sod (Zosyn 3.375 Gm Iv Premix) 3.375 gm in 50 mls @ 100 mls/hr IVPB Q6H [facility] Last Admin: 09/09/17 15:57 Dose: 100 mls/hr Dextrose (Dextrose 10% In Water) 1,000 mls @ 25 mls/hr IV .Q24H [facility] Lorazepam (Ativan) 1 mg IVP ONCE PRN PRN Reason: Agitation Last Admin: 09/07/17 13:55 Dose: 1 mg Ondansetron HCl (Zofran Tab) 4 mg PO Q8 PRN PRN Reason: nausea Oxycodone/Acetaminophen (Percocet 5/325 Mg Tab) 1 tab PO Q6H PRN PRN Reason: Pain, severe (8-10) Stop: 09/10/17 15:01 Last Admin: 09/09/17 16:18 Dose: 1 tab Pantoprazole Sodium (Protonix Ec Tab) 40 mg PO DAILY [facility] Last Admin: 09/09/17 10:01 Dose: 40 mg Vitamin A (Vitamin A & D Oint Ud Foilpak) 1 ea TOP DAILY [facility] Last Admin: 09/09/17 10:01 Dose: 1 ea - Labs Labs: 09/09/17 11:02 09/09/17 11:02 PT 16.1 SECONDS (9.7-12.2) H 09/04/17 14:19 INR 1.4 09/04/17 14:19 APTT 32 SECONDS (21-34) 09/04/17 14:19 - Constitutional Appears: Well - Head Exam Head Exam: ATRAUMATIC, NORMAL INSPECTION, NORMOCEPHALIC - Eye Exam Eye Exam: EOMI, Normal appearance, PERRL Pupil Exam: NORMAL ACCOMODATION, PERRL - ENT Exam ENT Exam: Mucous Membranes Moist, Normal Exam - Neck Exam Neck Exam: Full ROM, Normal Inspection. absent: Lymphadenopathy - Respiratory Exam Respiratory Exam: Clear to Ausculation Bilateral, NORMAL BREATHING PATTERN - Cardiovascular Exam Cardiovascular Exam: REGULAR RHYTHM, +S1, +S2. absent: Murmur - GI/Abdominal Exam GI & Abdominal Exam: Soft, Normal Bowel Sounds. absent: Tenderness - Rectal Exam Rectal Exam: Deferred - Extremities Exam Extremities Exam: Full ROM, Normal Capillary Refill, Normal Inspection. 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 Slight agitation present. Oral intake is poor. Continue piperacillin tazobactam. Continue supportive care.
[2017-09-10] MEDS: Piperacill/Tazo 3.375gm in Dex 3.375 GM/50 ML BAG IVPB SCH ×4 (01:39→20:25)
[2017-09-10] MEDS: Oxycodone/Acetaminophen 5/325 mg Tab PO PRN (02:11)
[2017-09-10] MEDS: Pantoprazole 40 mg EC Tab PO SCH (10:30)
[2017-09-10] MEDS: Enoxaparin 40 mg Syringe SC SCH (10:30)
[2017-09-10] MEDS: Vitamins A & D Oint UD Foilpak TOP SCH (10:30)
--- NOTE | 2017-09-10 14:02 | CP.PCM.CON ---
History of Present Illness - History of Present Illness History of Present Illness: Palliative consult requested by Ja Mann NP for goals of care discussion Patient is a 62 yo female admitted from [place] with lethargy. In ED patient found unresponsive with BS of 20. At base line patient is alert, and oriented. After D50% infusion patient slightly recovered. The CT head was negative, and CT abdomen confirmed large upper abdomen mass pressing on part of liver . patient was diagnosed with uterine CA in 2013, was fallowed by Doctor Guillermo and is S/P chemo Tx and cytoreductive Sx.,Surgery was complicated by delayed wound closure and wound vac was applied. PMH: uterine CA, S/P chemo Tx, and abdominal Sx, wound vac in place Soc. Hx: single, daughter Edwige involved in care Fam. Hx: patient not aware of Review of Systems - Constitutional Constitutional: Weakness - EENT Eyes: absent: As Per HPI, Blind Spots, Blurred Vision, Change in Vision, Decreased Night Vision, Diplopia, Discharge, Dry Eye, Exophthalmos, Floaters, Irritation, Itchy Eyes, Loss of Peripheral Vision, Pain, Photophobia, Requires Corrective Lenses, Sees Flashes, Spots in Vision, Tunnel Vision, Other Visual Disturbances, Loss of Vision, Other Ears: absent: As Per HPI, Decreased Hearing, Ear Discharge, Ear Pain, Tinnitus, Abnormal Hearing, Disequilibrium, Dizziness, Other Nose/Mouth/Throat: absent: As Per HPI, Epistaxis, Nasal Congestion, Nasal Discharge, Nasal Obstruction, Nasal Trauma, Nose Pain, Post Nasal Drip, Sinus Pain, Sinus Pressure, Bleeding Gums, Change in Voice, Dental Pain, Dry Mouth, Dysphagia, Halitosis, Hoarsness, Lip Swelling, Mouth Lesions, Mouth Pain, Odynophagia, Sore Throat, Throat Swelling, Tongue Swelling, Facial Pain, Neck Pain, Neck Mass, Other - Cardiovascular Cardiovascular: absent: As Per HPI, Acrocyanosis, Chest Pain, Chest Pain at Rest , Chest Pain with Activity, Claudication, Diaphoresis, Dyspnea, Dyspnea on Exertion, Edema, Irregular Heart Rhythm, Pain Radiating to Arm/Neck/Jaw, Leg Edema, Leg Ulcers, Lightheadedness, Orthopnea, Palpitations, Paroxysmal Nocturnal Dyspnea, Pedal Edema, Radiating Pain, Rapid Heart Rate, Slow Heart Rate, Syncope, Other - Respiratory Respiratory: absent: As Per HPI, Cough, Dyspnea, Hemoptysis, Dyspnea on Exertion , Wheezing, Snoring, Stridor, Pain on Inspiration, Chest Congestion, Excessive Mucous Production, Change in Mucous Color, Pain with Coughing, Other - Gastrointestinal Gastrointestinal: Nausea - Genitourinary Genitourinary: absent: As Per HPI, Change in Urinary Stream, Difficulty Urinating, Dysuria, Flank Pain, Hematuria, Pyuria, Nocturia, Urinary Incontinence, Urinary Frequency, Urinary Hesitance, Urinary Urgency, Voiding Freq/Small Amts, Freq UTI, Hx Renal/Bladder Calculi, Hx /Renal Surgery, Bladder Distension, Other - Reproductive: Female Reproductive:Female: Post Menopausal - Menstruation Menstruation: Post Menopausal - Musculoskeletal Musculoskeletal: absent: As Per HPI, Abnormal Gait, Arthralgias, Atrophy, Back Pain, Deformity, Joint Swelling, Limited Range of Motion, Loss of Height, Muscle Cramps, Muscle Weakness, Myalgias, Neck Pain, Numbness, Radiating Pain into Limb, Stiffness, Tingling, Other - Integumentary Integumentary: absent: As Per HPI, Acne, Alopecia, Bleeding Lesions, Change in Hair, Change in Nails, Change in Pigmentation, Changing Lesions, Dry Skin, Erythema, Furuncle, Hirsutism, Lesions, New Lesions, Non-Healing Lesions, Photosensitivity, Pruritus, Rash, Skin Pain, Skin Ulcer, Sores, Striae, Swelling , Unusual Bruising, Wounds, Jaundice, Other - Neurological Neurological: Weakness - Psychiatric Psychiatric: Anxiety - Endocrine Endocrine: absent: As Per HPI, Change in Body Appearance, Change in Libido, Cold Intolorance, Deepening of Voice, Excessive Sweating, Fatigue, Flushing, Heat Intolorance, Increase in Ring/Shoe/Hat Size, Palpitations, Polydipsia, Polyphagia, Polyuria, Other - Hematologic/Lymphatic Hematologic: absent: As Per HPI, Easy Bleeding, Easy Bruising, Lymphadenopathy, Other Past Patient History - Infectious Disease Hx of Infectious Diseases: None - Past Social History Smoking Status: Unknown If Ever Smoked - CARDIAC Hx Hypertension: Yes - HEMATOLOGICAL/ONCOLOGICAL Hx Cancer: Yes (UTERUS) - MUSCULOSKELETAL/RHEUMATOLOGICAL Hx Unsteady Gait: Yes - PSYCHIATRIC Hx Substance Use: No - SURGICAL HISTORY Hx Surgeries: Yes Other/Comment: UTERINE NEOPLASM SURGERY - ANESTHESIA Hx Anesthesia: Yes Meds Allergies/Adverse Reactions: Allergies Allergy/AdvReac Type Severity Reaction Status Date / Time No Known Allergies Allergy Verified 09/04/17 14:40 - Medications Medications: Current Medications Al Hydrox/Mg Hydrox/Simethicone (Maalox 30 Ml) 30 ml PO Q4 PRN PRN Reason: heartburn Aspirin (Ecotrin) 81 mg PO DAILY [facility] Last Admin: 09/10/17 10:29 Dose: Not Given Calcitriol (Rocaltrol) 0.25 mcg PO DAILY [facility] Last Admin: 09/10/17 10:30 Dose: Not Given Enoxaparin Sodium (Lovenox) 40 mg SC DAILY [facility] Last Admin: 09/10/17 10:30 Dose: Not Given Gabapentin (Neurontin) 300 mg PO BID [facility] Last Admin: 09/10/17 10:30 Dose: Not Given Piperacillin Sod/Tazobactam Sod (Zosyn 3.375 Gm Iv Premix) 3.375 gm in 50 mls @ 100 mls/hr IVPB Q6H [facility] Last Admin: 09/10/17 13:43 Dose: 100 mls/hr Dextrose (Dextrose 10% In Water) 1,000 mls @ 25 mls/hr IV .Q24H [facility] Last Admin: 09/09/17 20:13 Dose: 25 mls/hr Lorazepam (Ativan) 1 mg IVP ONCE PRN PRN Reason: Agitation Last Admin: 09/07/17 13:55 Dose: 1 mg Ondansetron HCl (Zofran Tab) 4 mg PO Q8 PRN PRN Reason: nausea Oxycodone/Acetaminophen (Percocet 5/325 Mg Tab) 1 tab PO Q6H PRN PRN Reason: Pain, severe (8-10) Stop: 09/10/17 15:01 Last Admin: 09/10/17 02:11 Dose: 1 tab Pantoprazole Sodium (Protonix Ec Tab) 40 mg PO DAILY [facility] Last Admin: 09/10/17 10:30 Dose: Not Given Vitamin A (Vitamin A & D Oint Ud Foilpak) 1 ea TOP DAILY [facility] Last Admin: 09/10/17 10:30 Dose: Not Given Physical Exam - Constitutional Appears: Chronically Ill - Head Exam Head Exam: ATRAUMATIC, NORMAL INSPECTION, NORMOCEPHALIC - Eye Exam Eye Exam: EOMI, Normal appearance, PERRL Pupil Exam: NORMAL ACCOMODATION, PERRL - ENT Exam ENT Exam: Mucous Membranes Moist, Normal Exam - Neck Exam Neck exam: Positive for: Normal Inspection - Respiratory Exam Respiratory Exam: Decreased Breath Sounds, NORMAL BREATHING PATTERN - Cardiovascular Exam Cardiovascular Exam: REGULAR RHYTHM - GI/Abdominal Exam GI & Abdominal Exam: Guarding, Rigid Additional comments: Wound vac in place - Rectal Exam Rectal Exam: Deferred - Extremities Exam Extremities exam: Positive for: pedal edema - Back Exam Back exam: NORMAL INSPECTION - Neurological Exam Neurological exam: Alert - Psychiatric Exam Psychiatric exam: Anxious - Skin Skin Exam: Dry, Normal Color, Warm Results - Vital Signs Recent Vital Signs: Last Vital Signs Temp 98.3 F 09/10/17 08:00 Pulse 98 H 09/10/17 08:00 Resp 18 09/10/17 08:00 BP 130/78 09/10/17 08:00 Pulse Ox 18 L 09/10/17 08:00 - Labs Result Diagrams: 09/09/17 11:02 09/09/17 11:02 Labs: Laboratory Results - last 24 hr 09/09/17 09/09/17 09/10/17 17:20 20:51 06:23 POC Glucose (mg/dL) 111 H 115 H 106 09/10/17 12:02 POC Glucose (mg/dL) 98 Assessment & Plan - Assessment and Plan (Free Text) Assessment: Palliative consult Code status Full Code, no Advance Directive/ Living Will on chart, PPS 30% I reviewed medical records, all diagnostic studis, examined and interviewed patient in the bed. Patient is alert, appears very uncomfortable and complains of nausea. Speech is clear.Patient reports" nobody is visiting me". There is wound vac in place. Abdomen is hard and rigid to touch. Patient was on bed edgar, stool dark green, soft. Patient complains of abdominal pain but refuses to take Percocet. Patient beliefs, Percocet makes her " more sick". The rest of physical exam is unremarkable. Hb 10.6 after 2 units of PRBCs, WBC 13.0, Alb 2.1, Total rick 2.2. BP 130/78, afebrile. I called patient's daughter edwige and scheduled family meeting for tomorrow at 4 : 30 pm, after she comes from work. Impression * This is chronically ill lady, with uterine cancer not responding well to chmo Tx and cytoreducive Sx * Patient looks very uncomfortable and complains of constant, deep and throbbing abdominal pain. Does not want Percocet * patient's wishes for the end of life care are not known * I do not feel patient is fully competnt to discuss goals of care alone * The daughter agreed on family meeting for tomorrow Suggestion * At this stage of patient's disease, the comfort should be primary goal for this patient * Would consider Morphine 5 mg IV Q 3 hr PRN pain * Would Dc Percocet Family meeting tomorrow at 4: 30pm Thank you for consulting Palliative care
[2017-09-10] MEDS: Morphine 4 MG/ML VIAL IVP PRN (17:57)
--- NOTE | 2017-09-10 20:09 | CP.PCM.PN ---
Subjective - Date & Time of Evaluation Date of Evaluation: 09/10/17 Time of Evaluation: 11:00 - Subjective Subjective: clinically same Objective - Vital Signs/Intake and Output Vital Signs (last 24 hours): Temp Pulse Resp BP Pulse Ox 98.1 F 92 H 20 127/80 100 09/10/17 15:24 09/10/17 16:00 09/10/17 15:24 09/10/17 15:24 09/10/17 15:24 Intake and Output: 09/10/17 09/11/17 18:59 06:59 Intake Total 565 Output Total 200 Balance 365 - Medications Medications: Current Medications Al Hydrox/Mg Hydrox/Simethicone (Maalox 30 Ml) 30 ml PO Q4 PRN PRN Reason: heartburn Aspirin (Ecotrin) 81 mg PO DAILY [facility] Last Admin: 09/10/17 10:29 Dose: Not Given Calcitriol (Rocaltrol) 0.25 mcg PO DAILY [facility] Last Admin: 09/10/17 10:30 Dose: Not Given Enoxaparin Sodium (Lovenox) 40 mg SC DAILY [facility] Last Admin: 09/10/17 10:30 Dose: Not Given Fluconazole (Diflucan) 100 mg PO DAILY [facility] Stop: 09/16/17 23:59 Gabapentin (Neurontin) 300 mg PO BID [facility] Last Admin: 09/10/17 18:01 Dose: 300 mg Dextrose (Dextrose 10% In Water) 1,000 mls @ 25 mls/hr IV .Q24H [facility] Last Admin: 09/09/17 20:13 Dose: 25 mls/hr Lorazepam (Ativan) 1 mg IVP ONCE PRN PRN Reason: Agitation Last Admin: 09/07/17 13:55 Dose: 1 mg Morphine Sulfate (Morphine) 4 mg IVP Q4 PRN PRN Reason: Pain, moderate (4-7) Last Admin: 09/10/17 17:57 Dose: 4 mg Ondansetron HCl (Zofran Tab) 4 mg PO Q8 PRN PRN Reason: nausea Pantoprazole Sodium (Protonix Ec Tab) 40 mg PO DAILY [facility] Last Admin: 09/10/17 10:30 Dose: Not Given Vitamin A (Vitamin A & D Oint Ud Foilpak) 1 ea TOP DAILY [facility] Last Admin: 09/10/17 10:30 Dose: Not Given - Labs Labs: 09/09/17 11:02 09/09/17 11:02 PT 16.1 SECONDS (9.7-12.2) H 09/04/17 14:19 INR 1.4 09/04/17 14:19 APTT 32 SECONDS (21-34) 09/04/17 14:19 - Constitutional Appears: Well - Head Exam Head Exam: ATRAUMATIC, NORMAL INSPECTION, NORMOCEPHALIC - Eye Exam Eye Exam: EOMI, Normal appearance, PERRL Pupil Exam: NORMAL ACCOMODATION, PERRL - ENT Exam ENT Exam: Mucous Membranes Moist, Normal Exam - Neck Exam Neck Exam: Full ROM, Normal Inspection. absent: Lymphadenopathy - Respiratory Exam Respiratory Exam: Clear to Ausculation Bilateral, NORMAL BREATHING PATTERN - Cardiovascular Exam Cardiovascular Exam: REGULAR RHYTHM, +S1, +S2. absent: Murmur - GI/Abdominal Exam GI & Abdominal Exam: Soft, Normal Bowel Sounds. absent: Tenderness - Rectal Exam Rectal Exam: Deferred - Extremities Exam Extremities Exam: Full ROM, Normal Capillary Refill, Normal Inspection. 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 Slight agitation present. Oral intake is poor. Urine culture grows yeast. Fluconazole orally. Continue piperacillin tazobactam. Continue supportive care.
[2017-09-10] MEDS: Sodium Chloride 0.9% 1,000 ML IV SCH (23:00)
[2017-09-11 07:19] LABS: BASO % 0.4 % (0.0-2.0); EOS # 0.1 K/uL (0.0-0.7); EOS % 1.1 % (0.0-4.0); HEMATOCRIT 27.5 % (34.0-47.0); LYMPH # 1.2 K/uL (1.0-4.3); LYMPH % 11.6 % (20.0-40.0); MEAN CELL VOLUME 94.6 fL (81.0-99.0); MEAN CORPUSCULAR HEMOGLOBIN 31.9 pg (27.0-31.0); MEAN CORPUSCULAR HGB CONC 33.7 g/dL (33.0-37.0); MEAN PLATELET VOLUME 8.9 fL (7.2-11.7); MONO # 0.7 K/uL (0.0-0.8); MONO % 7.1 % (0.0-10.0); NRBC % 0.1 % (0.0-2.0); RED CELL DISTRIBUTION WIDTH 24.3 % (11.5-14.5); WHITE BLOOD COUNT 10.3 K/uL (4.8-10.8)
[2017-09-11 07:53] LABS: ALB/GLOB RATIO 0.7 (1.0-2.1); ALKALINE PHOSPHATASE 91 U/L (38-126); ALT/SGPT 24 U/L (9-52); AST/SGOT 40 U/L (14-36); BLOOD UREA NITROGEN 13 mg/dL (7-17); CALCIUM 6.7 mg/dl (8.6-10.4); CARBON DIOXIDE 23 mmol/L (22-30); CHLORIDE 100 mmol/L (98-107); GFR AFRICAN-AMERICAN > 60; GLUCOSE,RANDOM 75 mg/dL (65-105); POTASSIUM 3.3 mmol/L (3.6-5.2); SODIUM 129 mmol/L (132-148); TOTAL PROTEIN 5.1 g/dL (6.3-8.3)
[2017-09-11] MEDS: Morphine 4 MG/ML VIAL IVP PRN ×4 (07:56→22:09)
[2017-09-11] MEDS: Pantoprazole 40 mg EC Tab PO SCH (10:40)
[2017-09-11] MEDS: Vitamins A & D Oint UD Foilpak TOP SCH (10:40)
[2017-09-11] MEDS: Potassium Chloride 20 mEq ER Tab PO SCH (10:43)
[2017-09-11] MEDS: Enoxaparin 40 mg Syringe SC SCH (10:44)
--- NOTE | 2017-09-11 13:46 | EEG ---
DATE: 09/05/2017 This is a 16-channel electroencephalogram of awake and drowsy adult. During the study, photic stimulation was performed. Hyperventilation was not performed. The resting electroencephalogram consists of moderate voltage high theta activities, which included 5-6 Hz noted in bilateral cortical leads. This appears well-formed on left than her right side. Some movement artifact contaminated the background rhythm intermittently. The photic stimulation did not evoke driving response noted at 2-20 Hz. Later this activity further slowed down to form 3-4 Hz delta activities seen mixed with muscle artifact consistent with drowsiness. IMPRESSION: This is abnormal electroencephalogram because of persistent slowing throughout the record suggestive of bilateral cerebral dysfunction. This is probably secondary to metabolic, vascular, or degenerative process. Please correlate the findings with neurological and radiological studies. Jagdish Madrigal MD
[2017-09-11] MEDS: Piperacill/Tazo 3.375gm in Dex 3.375 GM/50 ML BAG IVPB SCH ×2 (13:59→21:00)
[2017-09-11] MEDS ORDERED: Albumin Human 25% (12.5 gm/50 ml) IV SCH (14:00)
--- NOTE | 2017-09-11 16:16 | CP.PCM.PN ---
Subjective - Date & Time of Evaluation Date of Evaluation: 09/11/17 Time of Evaluation: 11:00 - Subjective Subjective: clinically same Objective - Vital Signs/Intake and Output Vital Signs (last 24 hours): Temp Pulse Resp BP Pulse Ox 98.4 F 92 H 20 131/83 100 09/11/17 15:20 09/11/17 15:20 09/11/17 15:20 09/11/17 15:20 09/11/17 15:20 Intake and Output: 09/11/17 09/11/17 06:59 18:59 Intake Total 320 570 Output Total 400 450 Balance -80 120 - Medications Medications: Current Medications Al Hydrox/Mg Hydrox/Simethicone (Maalox 30 Ml) 30 ml PO Q4 PRN PRN Reason: heartburn Albumin Human (Albumin Human 25% (12.5 Gm/50 Ml)) 12.5 gm IV Q8 [facility] Last Admin: 09/11/17 13:13 Dose: 12.5 gm Aspirin (Ecotrin) 81 mg PO DAILY [facility] Last Admin: 09/11/17 10:40 Dose: 81 mg Calcitriol (Rocaltrol) 0.25 mcg PO DAILY [facility] Last Admin: 09/11/17 10:40 Dose: 0.25 mcg Enoxaparin Sodium (Lovenox) 40 mg SC DAILY [facility] Last Admin: 09/11/17 10:44 Dose: 40 mg Fluconazole (Diflucan) 100 mg PO DAILY [facility] Stop: 09/16/17 23:59 Last Admin: 09/11/17 10:43 Dose: 100 mg Gabapentin (Neurontin) 300 mg PO BID [facility] Last Admin: 09/11/17 10:40 Dose: 300 mg Sodium Chloride (Sodium Chloride 0.9%) 1,000 mls @ 25 mls/hr IV .Q24H [facility] Last Admin: 09/10/17 23:00 Dose: 25 mls/hr Piperacillin Sod/Tazobactam Sod (Zosyn 3.375 Gm Iv Premix) 3.375 gm in 50 mls @ 100 mls/hr IVPB Q6H [facility] Last Admin: 09/11/17 13:59 Dose: 100 mls/hr Fat Emulsion Intravenous (Intralipid 20%) 500 mls @ 50 mls/hr IV TTS@1800 [facility] Stop: 09/16/17 03:59 Chromium/Copper/Manganese/Zinc 1 ml/ Multivitamins/Vitamin C 10 ml/ Amino Acids 1,011 mls @ 42 mls/hr IV .Q24H [facility] Stop: 09/12/17 17:59 Lorazepam (Ativan) 1 mg IVP ONCE PRN PRN Reason: Agitation Last Admin: 09/07/17 13:55 Dose: 1 mg Morphine Sulfate (Morphine) 4 mg IVP Q4 PRN PRN Reason: Pain, moderate (4-7) Last Admin: 09/11/17 14:09 Dose: 4 mg Ondansetron HCl (Zofran Tab) 4 mg PO Q8 PRN PRN Reason: nausea Pantoprazole Sodium (Protonix Ec Tab) 40 mg PO DAILY [facility] Last Admin: 09/11/17 10:40 Dose: 40 mg Potassium Chloride (K-Dur 20 Meq Er Tab) 40 meq PO BRK [facility] Last Admin: 09/11/17 10:43 Dose: 40 meq Vitamin A (Vitamin A & D Oint Ud Foilpak) 1 ea TOP DAILY [facility] Last Admin: 09/11/17 10:40 Dose: 1 ea - Labs Labs: 09/11/17 07:08 09/11/17 07:08 PT 16.1 SECONDS (9.7-12.2) H 09/04/17 14:19 INR 1.4 09/04/17 14:19 APTT 32 SECONDS (21-34) 09/04/17 14:19 Assessment and Plan (1) Altered mental status Status: Acute (2) Anemia Status: Acute (3) Coagulopathy Status: Acute (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
[2017-09-11] MEDS ORDERED: PPN IV SCH ×2 (18:00)
[2017-09-11] MEDS: Fat Emulsion 20% IV 500 ML IV SCH (18:56)
--- NOTE | 2017-09-11 19:28 | CP.PCM.PCO ---
Physician Communication Note - Physician Communication Note Physician Communication Note: Wound vac changed, possibly switch to douderm next change
--- NOTE | 2017-09-11 20:15 | CP.PCM.PN ---
Subjective - Date & Time of Evaluation Date of Evaluation: 09/11/17 Time of Evaluation: 17:15 - Subjective Subjective: Feels weak, trying to eat more Objective - Vital Signs/Intake and Output Vital Signs (last 24 hours): Temp Pulse Resp BP Pulse Ox 98.4 F 92 H 20 131/83 100 09/11/17 15:20 09/11/17 15:20 09/11/17 15:20 09/11/17 15:20 09/11/17 15:20 Intake and Output: 09/11/17 09/12/17 18:59 06:59 Intake Total 570 Output Total 450 Balance 120 - Medications Medications: Current Medications Al Hydrox/Mg Hydrox/Simethicone (Maalox 30 Ml) 30 ml PO Q4 PRN PRN Reason: heartburn Last Admin: 09/11/17 18:11 Dose: 30 ml Aspirin (Ecotrin) 81 mg PO DAILY [facility] Last Admin: 09/11/17 10:40 Dose: 81 mg Calcitriol (Rocaltrol) 0.25 mcg PO DAILY [facility] Last Admin: 09/11/17 10:40 Dose: 0.25 mcg Enoxaparin Sodium (Lovenox) 40 mg SC DAILY [facility] Last Admin: 09/11/17 10:44 Dose: 40 mg Fluconazole (Diflucan) 100 mg PO DAILY [facility] Stop: 09/16/17 23:59 Last Admin: 09/11/17 10:43 Dose: 100 mg Gabapentin (Neurontin) 300 mg PO BID [facility] Last Admin: 09/11/17 18:12 Dose: 300 mg Sodium Chloride (Sodium Chloride 0.9%) 1,000 mls @ 25 mls/hr IV .Q24H [facility] Last Admin: 09/10/17 23:00 Dose: 25 mls/hr Piperacillin Sod/Tazobactam Sod (Zosyn 3.375 Gm Iv Premix) 3.375 gm in 50 mls @ 100 mls/hr IVPB Q6H [facility] Last Admin: 09/11/17 13:59 Dose: 100 mls/hr Fat Emulsion Intravenous (Intralipid 20%) 500 mls @ 50 mls/hr IV TTS@1800 [facility] Stop: 09/16/17 03:59 Last Admin: 09/11/17 18:56 Dose: 50 mls/hr Chromium/Copper/Manganese/Zinc 1 ml/ Multivitamins/Vitamin C 10 ml/ Amino Acids 1,011 mls @ 42 mls/hr IV .Q24H [facility] Stop: 09/12/17 17:59 Last Admin: 09/11/17 18:12 Dose: 42 mls/hr Albumin Human (Albumin Human 25% (12.5 Gm/50 Ml)) 50 mls @ 50 mls/hr IV Q8 [facility] Lorazepam (Ativan) 1 mg IVP ONCE PRN PRN Reason: Agitation Last Admin: 09/07/17 13:55 Dose: 1 mg Morphine Sulfate (Morphine) 4 mg IVP Q4 PRN PRN Reason: Pain, moderate (4-7) Last Admin: 09/11/17 18:11 Dose: 4 mg Ondansetron HCl (Zofran Tab) 4 mg PO Q8 PRN PRN Reason: nausea Pantoprazole Sodium (Protonix Ec Tab) 40 mg PO DAILY [facility] Last Admin: 09/11/17 10:40 Dose: 40 mg Potassium Chloride (K-Dur 20 Meq Er Tab) 40 meq PO BRK [facility] Last Admin: 09/11/17 10:43 Dose: 40 meq Vitamin A (Vitamin A & D Oint Ud Foilpak) 1 ea TOP DAILY [facility] Last Admin: 09/11/17 10:40 Dose: 1 ea - Labs Labs: 09/11/17 07:08 09/11/17 07:08 PT 16.1 SECONDS (9.7-12.2) H 09/04/17 14:19 INR 1.4 09/04/17 14:19 APTT 32 SECONDS (21-34) 09/04/17 14:19 - Head Exam Head Exam: ATRAUMATIC - Eye Exam Eye Exam: Normal appearance - ENT Exam ENT Exam: Mucous Membranes Dry - Respiratory Exam Respiratory Exam: NORMAL BREATHING PATTERN - Cardiovascular Exam Cardiovascular Exam: +S1, +S2 - GI/Abdominal Exam GI & Abdominal Exam: Normal Bowel Sounds Assessment and Plan (1) Anemia Assessment & Plan: anemia of chronic disease FOBT positive transfusion support PRN Status: Acute (2) Extraovarian primary peritoneal carcinoma Assessment & Plan: supportive care patient requesting chemotherapy however discussed concern for inability to tolerate chemotherapy will discuss with the pts daughter Status: Acute
[2017-09-12] MEDS: Piperacill/Tazo 3.375gm in Dex 3.375 GM/50 ML BAG IVPB SCH ×4 (02:05→21:44)
[2017-09-12] MEDS: Morphine 4 MG/ML VIAL IVP PRN ×3 (03:54→23:55)
[2017-09-12] MEDS: Potassium Chloride 20 mEq ER Tab PO SCH (09:00)
--- NOTE | 2017-09-12 09:02 | CP.PCM.PN ---
Subjective - Date & Time of Evaluation Date of Evaluation: 09/11/17 Time of Evaluation: 16:00 - Subjective Subjective: Complains of nausea and food intolernce. Complains of abd pain. Objective - Vital Signs/Intake and Output Vital Signs (last 24 hours): Temp Pulse Resp BP Pulse Ox 98.3 F 102 H 20 125/84 97 09/12/17 07:00 09/12/17 07:00 09/12/17 07:00 09/12/17 07:00 09/12/17 07:00 Intake and Output: 09/12/17 09/12/17 06:59 18:59 Intake Total 672 Output Total 300 Balance 372 - Medications Medications: Current Medications Al Hydrox/Mg Hydrox/Simethicone (Maalox 30 Ml) 30 ml PO Q4 PRN PRN Reason: heartburn Last Admin: 09/11/17 18:11 Dose: 30 ml Aspirin (Ecotrin) 81 mg PO DAILY [facility] Last Admin: 09/11/17 10:40 Dose: 81 mg Calcitriol (Rocaltrol) 0.25 mcg PO DAILY [facility] Last Admin: 09/11/17 10:40 Dose: 0.25 mcg Enoxaparin Sodium (Lovenox) 40 mg SC DAILY [facility] Last Admin: 09/11/17 10:44 Dose: 40 mg Fluconazole (Diflucan) 100 mg PO DAILY [facility] Stop: 09/16/17 23:59 Last Admin: 09/11/17 10:43 Dose: 100 mg Gabapentin (Neurontin) 300 mg PO BID [facility] Last Admin: 09/11/17 18:12 Dose: 300 mg Sodium Chloride (Sodium Chloride 0.9%) 1,000 mls @ 25 mls/hr IV .Q24H [facility] Last Admin: 09/10/17 23:00 Dose: 25 mls/hr Piperacillin Sod/Tazobactam Sod (Zosyn 3.375 Gm Iv Premix) 3.375 gm in 50 mls @ 100 mls/hr IVPB Q6H [facility] Last Admin: 09/12/17 02:05 Dose: 100 mls/hr Fat Emulsion Intravenous (Intralipid 20%) 500 mls @ 50 mls/hr IV TTS@1800 [facility] Stop: 09/16/17 03:59 Last Admin: 09/11/17 18:56 Dose: 50 mls/hr Chromium/Copper/Manganese/Zinc 1 ml/ Multivitamins/Vitamin C 10 ml/ Amino Acids 1,011 mls @ 42 mls/hr IV .Q24H [facility] Stop: 09/12/17 17:59 Last Admin: 09/11/17 18:12 Dose: 42 mls/hr Albumin Human (Albumin Human 25% (12.5 Gm/50 Ml)) 50 mls @ 50 mls/hr IV Q8 [facility] Last Admin: 09/12/17 06:34 Dose: 50 mls/hr Lorazepam (Ativan) 1 mg IVP ONCE PRN PRN Reason: Agitation Last Admin: 09/07/17 13:55 Dose: 1 mg Morphine Sulfate (Morphine) 4 mg IVP Q4 PRN PRN Reason: Pain, moderate (4-7) Last Admin: 09/12/17 03:54 Dose: 4 mg Ondansetron HCl (Zofran Tab) 4 mg PO Q8 PRN PRN Reason: nausea Pantoprazole Sodium (Protonix Ec Tab) 40 mg PO DAILY [facility] Last Admin: 09/11/17 10:40 Dose: 40 mg Potassium Chloride (K-Dur 20 Meq Er Tab) 40 meq PO BRK [facility] Last Admin: 09/11/17 10:43 Dose: 40 meq Vitamin A (Vitamin A & D Oint Ud Foilpak) 1 ea TOP DAILY [facility] Last Admin: 09/11/17 10:40 Dose: 1 ea - Labs Labs: 09/11/17 07:08 09/11/17 07:08 PT 16.1 SECONDS (9.7-12.2) H 09/04/17 14:19 INR 1.4 09/04/17 14:19 APTT 32 SECONDS (21-34) 09/04/17 14:19 - Constitutional Appears: Chronically Ill - Head Exam Head Exam: ATRAUMATIC, NORMAL INSPECTION, NORMOCEPHALIC - Eye Exam Eye Exam: EOMI, Normal appearance, PERRL Pupil Exam: NORMAL ACCOMODATION, PERRL - ENT Exam ENT Exam: Mucous Membranes Moist, Normal Exam - Neck Exam Neck Exam: Normal Inspection - Respiratory Exam Respiratory Exam: Decreased Breath Sounds, NORMAL BREATHING PATTERN - Cardiovascular Exam Cardiovascular Exam: Tachycardia, REGULAR RHYTHM - GI/Abdominal Exam GI & Abdominal Exam: Distended, Firm, Guarding, Rigid, Tenderness, Diminished Bowel Sounds, Mass - Rectal Exam Rectal Exam: Deferred - Extremities Exam Extremities Exam: Pedal Edema - Back Exam Back Exam: NORMAL INSPECTION - Neurological Exam Neurological Exam: Alert, Oriented x3 Neuro motor strength exam: Left Upper Extremity: 2/1, Right Upper Extremity: 2/ , Left Lower Extremity: 2/, Right Lower Extremity: 2/ - Psychiatric Exam Psychiatric exam: Normal Affect, Normal Mood - Skin Skin Exam: Dry, Normal Color, Warm Additional comments: Wound vac in place to abd surgical wound Assessment and Plan - Assessment and Plan (Free Text) Assessment: Patient seen and examined in bed, late last night. Family, three daughters and one son, came in soon after for family meeting. Patient looked very uncomfortable. The hamburger for dinner was in front of her, and she could not tolerate it. even " the smell of it makes me sick". Abdomen is distended with hard palpablee mass to RUQ. Diminished bowel sounds. Wound vac in place, draining tea color drainage. patient struggles to get comfortable in bed. I elicited again her understanding of her condition. Patient stated being aware of cancer diagnosis. patient tends to continue with chemo Tx if she gets stronger. I suggested that as of now, chemo Tx was on fold due to her general weakness and poor appetite complicated with nausea. This was discussed with Doctor Lemuel whom I met on fall way and he agreed that at present chemo Tx was not an option. Code status discussed. Patient was very clear that she would not want her life to be prolonged by agressive measures such as intubation or CPR if her condition was seen as terminal and no meaningful recovery was expected. POLST discussed. Patient attempted to sign POLST X 2 but was very weak to hold the edgar. patient asked me if her daughter Edwige, the oldest child, could sign it for her. I reviewed with Edwige and two other daughters everything I discussed with patient and suggested that condition was complex and prognosis was guarded. Edwige agreed. Her concern was her mother's comfort level and did not want her to suffer. I explained the POLST purp[ose and reviewed her mother's wishes for the end of life care. Edwige signed POLST, DNR/DNI. This was shared with charged nurse on the floor. Impression * Chronically ill patient with advanced cancer and very complex symptoms due to it * Food intolerance fallowed with nausea * Abdominal, cancer related pain * Physical disability * Patient wishes for natural if condition seen terminal without expected meaningful recovery * Patient wishes to continu chemo Tx if by miracle her condition improves * Family supported her wishes Suggestion * Pain management, with Morphine preferably, as patient does not tolerate Percocet * Would change diet to soft and would include ice cream or pudding for patient to easily tolerate it * Patient will most likely need comfort care only, given her condition * Agree with DNR/DNI * POLST on chart
[2017-09-12] MEDS: Vitamins A & D Oint UD Foilpak TOP SCH (09:34)
[2017-09-12] MEDS: Enoxaparin 40 mg Syringe SC SCH (09:34)
[2017-09-12] MEDS: Pantoprazole 40 mg EC Tab PO SCH (09:35)
[2017-09-12 13:10] LABS: ALB/GLOB RATIO 0.6 (1.0-2.1); ALKALINE PHOSPHATASE 95 U/L (38-126); ALT/SGPT 34 U/L (9-52); AST/SGOT 55 U/L (14-36); BILIRUBIN,TOTAL 0.9 mg/dL (0.2-1.3); BLOOD UREA NITROGEN 15 mg/dL (7-17); CALCIUM 6.7 mg/dl (8.6-10.4); CARBON DIOXIDE 22 mmol/L (22-30); CHLORIDE 98 mmol/L (98-107); GFR AFRICAN-AMERICAN > 60; GLUCOSE,RANDOM 123 mg/dL (65-105); PHOSPHOROUS 2.7 mg/dL (2.5-4.5); POTASSIUM 4.4 mmol/L (3.6-5.2); SODIUM 126 mmol/L (132-148); TOTAL PROTEIN 6.4 g/dL (6.3-8.3)
--- NOTE | 2017-09-12 14:53 | CP.PCM.PN ---
Subjective - Date & Time of Evaluation Date of Evaluation: 09/12/17 Time of Evaluation: 07:55 - Subjective Subjective: This 59-year-old female with PMHx uterine cancer (2013) and HTN [facility] evaluation of altered mental status. Patient was lethargic since 8 AM today morning, became altered and when the EMS arrived her blood glucose was 20 mg/dl. patient was given two ampules of dextrose. Patient still continues to remain lethargic. In the ED, the CT head was negative, and CT abdomen confirmed large upper abdomen mass pressing on part of liver. She was diagnosed with uterine CA in 2013, was fallowed by Doctor Lemuel, and is S/P chemo Tx and cytoreductive Sx. Surgery was complicated by delayed wound closure and wound vac was applied. 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 Hx: single, daughter Edwige involved in care Fam. Hx: unknown PGY2 Resident - Medicine Progress Note Patient seen and examined at bedside. No acute distress. No overnight events. Patient is AAOx2, not oriented to time. Reports decreased appetite and lethargy. Patients family at bedside. Patient denies any additional acute complaints at this time. Denies f/c, chest pain, palpitations, d/c, n/v, or edema. Family meeting took place and decision was made to make patient DNR/DNI. Objective - Vital Signs/Intake and Output Vital Signs (last 24 hours): Temp Pulse Resp BP Pulse Ox 98.3 F 101 H 20 125/84 97 09/12/17 07:00 09/12/17 12:59 09/12/17 07:00 09/12/17 07:00 09/12/17 12:59 Intake and Output: 09/12/17 09/12/17 06:59 18:59 Intake Total 672 Output Total 300 Balance 372 - Medications Medications: Current Medications Al Hydrox/Mg Hydrox/Simethicone (Maalox 30 Ml) 30 ml PO Q4 PRN PRN Reason: heartburn Last Admin: 09/11/17 18:11 Dose: 30 ml Aspirin (Ecotrin) 81 mg PO DAILY [facility] Last Admin: 09/12/17 09:34 Dose: 81 mg Calcitriol (Rocaltrol) 0.25 mcg PO DAILY [facility] Last Admin: 09/12/17 09:35 Dose: 0.25 mcg Enoxaparin Sodium (Lovenox) 40 mg SC DAILY [facility] Last Admin: 09/12/17 09:34 Dose: 40 mg Fluconazole (Diflucan) 100 mg PO DAILY [facility] Stop: 09/16/17 23:59 Last Admin: 09/12/17 13:59 Dose: 100 mg Gabapentin (Neurontin) 300 mg PO BID [facility] Last Admin: 09/12/17 09:35 Dose: 300 mg Sodium Chloride (Sodium Chloride 0.9%) 1,000 mls @ 25 mls/hr IV .Q24H [facility] Last Admin: 09/10/17 23:00 Dose: 25 mls/hr Piperacillin Sod/Tazobactam Sod (Zosyn 3.375 Gm Iv Premix) 3.375 gm in 50 mls @ 100 mls/hr IVPB Q6H [facility] Last Admin: 09/12/17 13:33 Dose: 100 mls/hr Fat Emulsion Intravenous (Intralipid 20%) 500 mls @ 50 mls/hr IV TTS@1800 [facility] Stop: 09/16/17 03:59 Last Admin: 09/11/17 18:56 Dose: 50 mls/hr Chromium/Copper/Manganese/Zinc 1 ml/ Multivitamins/Vitamin C 10 ml/ Amino Acids 1,011 mls @ 42 mls/hr IV .Q24H [facility] Stop: 09/12/17 17:59 Last Admin: 09/11/17 18:12 Dose: 42 mls/hr Albumin Human (Albumin Human 25% (12.5 Gm/50 Ml)) 50 mls @ 50 mls/hr IV Q8 [facility] Last Admin: 09/12/17 13:34 Dose: 50 mls/hr Chromium/Copper/Manganese/Zinc 1 ml/ Multivitamins/Vitamin C 10 ml/ Amino Acids 1,011 mls @ 42 mls/hr IV .Q24H [facility] Stop: 09/13/17 17:59 Magnesium Sulfate/Dextrose (Magnesium Sulfate 1 Gm/100 Ml D5w) 1 gm in 100 mls @ 300 mls/hr IVPB Q30M [facility] Stop: 09/12/17 15:34 Lorazepam (Ativan) 1 mg IVP ONCE PRN PRN Reason: Agitation Last Admin: 09/07/17 13:55 Dose: 1 mg Morphine Sulfate (Morphine) 4 mg IVP Q4 PRN PRN Reason: Pain, moderate (4-7) Last Admin: 09/12/17 10:31 Dose: 4 mg Ondansetron HCl (Zofran Tab) 4 mg PO Q8 PRN PRN Reason: nausea Pantoprazole Sodium (Protonix Ec Tab) 40 mg PO DAILY [facility] Last Admin: 09/12/17 09:35 Dose: 40 mg Potassium Chloride (K-Dur 20 Meq Er Tab) 40 meq PO BRK [facility] Last Admin: 09/12/17 09:00 Dose: 40 meq Vitamin A (Vitamin A & D Oint Ud Foilpak) 1 ea TOP DAILY [facility] Last Admin: 09/12/17 09:34 Dose: 1 ea - Labs Labs: 09/11/17 07:08 09/12/17 12:50 PT 16.1 SECONDS (9.7-12.2) H 09/04/17 14:19 INR 1.4 09/04/17 14:19 APTT 32 SECONDS (21-34) 09/04/17 14:19 - Additional Findings Additional findings: - Constitutional Appears: Chronically Ill - Head Exam Head Exam: ATRAUMATIC, NORMAL INSPECTION, NORMOCEPHALIC - Eye Exam Eye Exam: EOMI, Normal appearance, PERRL - ENT Exam ENT Exam: Mucous Membranes Moist, Normal Exam - Respiratory Exam Respiratory Exam: Decreased Breath Sounds, NORMAL BREATHING PATTERN - Cardiovascular Exam Cardiovascular Exam: Tachycardia, REGULAR RHYTHM, +S1, +S2 - GI/Abdominal Exam GI & Abdominal Exam: Distended, Firm, Guarding, Rigid, Tenderness, Diminished Bowel Sounds, Mass - Extremities Exam Extremities Exam: Pedal Edema - Neurological Exam Neurological Exam: Alert, Oriented x2 (not oriented to time) - Psychiatric Exam Psychiatric exam: Normal Affect, Normal Mood - Skin Skin Exam: Dry, Normal Color, Warm Additional comments: Wound vac in place to abd surgical wound Assessment and Plan - Assessment and Plan (Free Text) Assessment: Extraovarian primary peritoneal carcinoma HemeOnc Consulted, Dr. Hdez, f/u recs supportive care patient requesting chemotherapy however discussed concern for inability to tolerate chemotherapy. will discuss with the pts daughter CT scan shows progression of her disease despite cytoreductive surgery Palliated care consult, Rosa, f/u recs Continue Morphine for pain Anemia 09/12/17: Hgb 6.3 (rechecked on peripheral line); Transfuse 2u PRBC. f/u repeat UA + FOBT anemia of chronic disease FOBT positive transfusion support PRN Leukocytosis Continue piperacillin tazobactam. UTI Urine culture grew yeast. Diflucan) 100 mg PO DAILY [facility] Decrease oral intake 09/12: GI consult, Dr. Norris - for possible PEG tube. f/u recs. Fat Emulsion Intravenous (Intralipid 20%) 500 mls @ 50 mls/hr IV TTS@1800 [facility] Nausea Continue Zofran Tab) 4 mg PO Q8 PRN Electrolyte Imbalance 09/12: Hypomagnesemia, Mg 1.0 -> 2 bags mag sulfate Prophylaxis SCDs Lovenox) 40 mg SC DAILY [facility] Protonix Ec Tab) 40 mg PO DAILY [facility] Code Status: DNR/DNI
[2017-09-12 14:59] LABS: BASO # 0.1 K/uL (0.0-0.2); BASO % 0.4 % (0.0-2.0); EOS # 0.1 K/uL (0.0-0.7); EOS % 0.4 % (0.0-4.0); HEMATOCRIT 19.5 % (34.0-47.0); LYMPH # 1.5 K/uL (1.0-4.3); LYMPH % 7.4 % (20.0-40.0); MEAN CELL VOLUME 94.5 fL (81.0-99.0); MEAN CORPUSCULAR HEMOGLOBIN 30.7 pg (27.0-31.0); MEAN CORPUSCULAR HGB CONC 32.5 g/dL (33.0-37.0); MEAN PLATELET VOLUME 8.9 fL (7.2-11.7); MONO # 1.1 K/uL (0.0-0.8); MONO % 5.4 % (0.0-10.0); NRBC % 0.1 % (0.0-2.0); PLATELET COUNT 149 K/uL (130-400); RED CELL DISTRIBUTION WIDTH 23.3 % (11.5-14.5)
[2017-09-12] MEDS: Magnesium Sulfate 1 gm in D5W 1 GM/100 ML BAG IVPB SCH ×2 (15:04→15:25)
[2017-09-12 15:18] LABS: ALKALINE PHOSPHATASE 93 U/L (38-126); ALT/SGPT 31 U/L (9-52); AST/SGOT 58 U/L (14-36); BILIRUBIN,TOTAL 1.3 mg/dL (0.2-1.3); BLOOD UREA NITROGEN 15 mg/dL (7-17); CALCIUM 7.1 mg/dl (8.6-10.4); CARBON DIOXIDE 23 mmol/L (22-30); CHLORIDE 98 mmol/L (98-107); GFR AFRICAN-AMERICAN > 60; GLUCOSE,RANDOM 114 mg/dL (65-105); POTASSIUM 4.8 mmol/L (3.6-5.2); SODIUM 126 mmol/L (132-148); TOTAL PROTEIN 5.5 g/dL (6.3-8.3); WHITE BLOOD COUNT 20.5 K/uL (4.8-10.8)
[2017-09-12 15:21] LABS: ALB/GLOB RATIO 0.9 (1.0-2.1)
[2017-09-12 15:49] LABS: NEUTROPHIL 86 % (50-75); TOTAL CELLS COUNTED 100
[2017-09-12] MEDS ORDERED: DiphenhydrAMINE 50 mg/ml Inj IVP ONE (16:00)
[2017-09-12] MEDS ORDERED: PPN# 2 IV SCH (18:00)
--- NOTE | 2017-09-12 19:01 | CP.PCM.PN ---
Subjective - Date & Time of Evaluation Date of Evaluation: 09/12/17 Time of Evaluation: 11:00 - Subjective Subjective: clinically same Objective - Vital Signs/Intake and Output Vital Signs (last 24 hours): Temp Pulse Resp BP Pulse Ox 97.7 F 96 H 20 123/80 99 09/12/17 18:52 09/12/17 16:29 09/12/17 15:15 09/12/17 15:15 09/12/17 15:15 Intake and Output: 09/12/17 09/13/17 18:59 06:59 Intake Total 786 Output Total 600 Balance 186 - Medications Medications: Current Medications Al Hydrox/Mg Hydrox/Simethicone (Maalox 30 Ml) 30 ml PO Q4 PRN PRN Reason: heartburn Last Admin: 09/11/17 18:11 Dose: 30 ml Aspirin (Ecotrin) 81 mg PO DAILY [facility] Last Admin: 09/12/17 09:34 Dose: 81 mg Calcitriol (Rocaltrol) 0.25 mcg PO DAILY [facility] Last Admin: 09/12/17 09:35 Dose: 0.25 mcg Enoxaparin Sodium (Lovenox) 40 mg SC DAILY [facility] Last Admin: 09/12/17 09:34 Dose: 40 mg Fluconazole (Diflucan) 100 mg PO DAILY [facility] Stop: 09/16/17 23:59 Last Admin: 09/12/17 13:59 Dose: 100 mg Gabapentin (Neurontin) 300 mg PO BID [facility] Last Admin: 09/12/17 18:53 Dose: Not Given Sodium Chloride (Sodium Chloride 0.9%) 1,000 mls @ 25 mls/hr IV .Q24H [facility] Last Admin: 09/10/17 23:00 Dose: 25 mls/hr Piperacillin Sod/Tazobactam Sod (Zosyn 3.375 Gm Iv Premix) 3.375 gm in 50 mls @ 100 mls/hr IVPB Q6H [facility] Last Admin: 09/12/17 13:33 Dose: 100 mls/hr Fat Emulsion Intravenous (Intralipid 20%) 500 mls @ 50 mls/hr IV TTS@1800 [facility] Stop: 09/16/17 03:59 Last Admin: 09/11/17 18:56 Dose: 50 mls/hr Albumin Human (Albumin Human 25% (12.5 Gm/50 Ml)) 50 mls @ 50 mls/hr IV Q8 [facility] Last Admin: 09/12/17 13:34 Dose: 50 mls/hr Chromium/Copper/Manganese/Zinc 1 ml/ Multivitamins/Vitamin C 10 ml/ Amino Acids 1,011 mls @ 42 mls/hr IV .Q24H [facility] Stop: 09/13/17 17:59 Lorazepam (Ativan) 1 mg IVP ONCE PRN PRN Reason: Agitation Last Admin: 09/07/17 13:55 Dose: 1 mg Morphine Sulfate (Morphine) 4 mg IVP Q4 PRN PRN Reason: Pain, moderate (4-7) Last Admin: 09/12/17 10:31 Dose: 4 mg Ondansetron HCl (Zofran Tab) 4 mg PO Q8 PRN PRN Reason: nausea Pantoprazole Sodium (Protonix Ec Tab) 40 mg PO DAILY [facility] Last Admin: 09/12/17 09:35 Dose: 40 mg Potassium Chloride (K-Dur 20 Meq Er Tab) 40 meq PO BRK [facility] Last Admin: 09/12/17 09:00 Dose: 40 meq Vitamin A (Vitamin A & D Oint Ud Foilpak) 1 ea TOP DAILY [facility] Last Admin: 09/12/17 09:34 Dose: 1 ea - Labs Labs: 09/12/17 14:53 09/12/17 14:53 PT 16.1 SECONDS (9.7-12.2) H 09/04/17 14:19 INR 1.4 09/04/17 14:19 APTT 32 SECONDS (21-34) 09/04/17 14:19 Assessment and Plan (1) Altered mental status Status: Acute (2) Anemia Status: Acute (3) Coagulopathy Status: Acute (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
[2017-09-13] MEDS: Piperacill/Tazo 3.375gm in Dex 3.375 GM/50 ML BAG IVPB SCH ×4 (04:01→19:07)
[2017-09-13 05:06] LABS: RBC URINE 480 /hpf (0-3); URINE BACTERIA MANY (<OCC); URINE BILIRUBIN NEGATIVE (NEGATIVE); URINE BLOOD 3+ (NEGATIVE); URINE COLOR Amber (YELLOW); URINE GLUCOSE (UA) NORMAL (Normal); URINE KETONE NEGATIVE (NEGATIVE); URINE LEUKOCYTE ESTERASE 3+ Leu/uL (Negative); URINE PROTEIN 2+ mg/dL (NEGATIVE); URINE UROBILINOGEN NORMAL mg/dL (0.2-1.0); WBC CLUMPS MANY /hpf; WBC URINE 1994 /hpf (0-5)
[2017-09-13] MEDS: Morphine 4 MG/ML VIAL IVP PRN ×2 (06:55→18:11)
[2017-09-13] MEDS: Magnesium Sulfate 1 gm in D5W 1 GM/100 ML BAG IVPB SCH ×2 (07:54→09:13)
[2017-09-13] MEDS: Potassium Chloride 20 mEq ER Tab PO SCH (07:54)
[2017-09-13 08:17] LABS: BASO # 0.1 K/uL (0.0-0.2); BASO % 0.2 % (0.0-2.0); EOS # 0.1 K/uL (0.0-0.7); EOS % 0.2 % (0.0-4.0); HEMATOCRIT 26.6 % (34.0-47.0); LYMPH % 4.3 % (20.0-40.0); MEAN CORPUSCULAR HEMOGLOBIN 30.3 pg (27.0-31.0); MEAN CORPUSCULAR HGB CONC 33.8 g/dL (33.0-37.0); MEAN PLATELET VOLUME 9.3 fL (7.2-11.7); MONO # 1.2 K/uL (0.0-0.8); MONO % 5.3 % (0.0-10.0); PLATELET COUNT 147 K/uL (130-400); RED CELL DISTRIBUTION WIDTH 18.4 % (11.5-14.5); WHITE BLOOD COUNT 22.6 K/uL (4.8-10.8)
[2017-09-13 08:27] LABS: MEAN CELL VOLUME 89.4 fL (81.0-99.0)
--- NOTE | 2017-09-13 09:08 | CP.PCM.PN ---
Subjective - Date & Time of Evaluation Date of Evaluation: 09/13/17 Time of Evaluation: 09:08 - Subjective Subjective: PGY2 Note for Dr. Cammie Peres; all management as per Dr. Cammie Peres Patient seen and examined at bedside; when speaking with her she expressed wishes that she does not want any other treatments done (including PEG tube) and would like to just "be left alone" and be "comfortable". She has no complaints today, and was otherwise pleasant. Objective - Vital Signs/Intake and Output Vital Signs (last 24 hours): Temp Pulse Resp BP Pulse Ox 98.4 F 66 18 148/80 100 09/13/17 08:19 09/13/17 08:19 09/13/17 08:19 09/13/17 08:19 09/13/17 08:19 Intake and Output: 09/13/17 09/13/17 06:59 18:59 Intake Total 1672 Output Total 1000 Balance 672 - Medications Medications: Current Medications Al Hydrox/Mg Hydrox/Simethicone (Maalox 30 Ml) 30 ml PO Q4 PRN PRN Reason: heartburn Last Admin: 09/11/17 18:11 Dose: 30 ml Aspirin (Ecotrin) 81 mg PO DAILY [facility] Last Admin: 09/12/17 09:34 Dose: 81 mg Calcitriol (Rocaltrol) 0.25 mcg PO DAILY [facility] Last Admin: 09/12/17 09:35 Dose: 0.25 mcg Dronabinol (Marinol) 5 mg PO BID [facility] Enoxaparin Sodium (Lovenox) 40 mg SC DAILY [facility] Last Admin: 09/12/17 09:34 Dose: 40 mg Fluconazole (Diflucan) 100 mg PO DAILY [facility] Stop: 09/16/17 23:59 Last Admin: 09/12/17 13:59 Dose: 100 mg Gabapentin (Neurontin) 300 mg PO BID [facility] Last Admin: 09/12/17 18:53 Dose: Not Given Sodium Chloride (Sodium Chloride 0.9%) 1,000 mls @ 25 mls/hr IV .Q24H [facility] Last Admin: 09/10/17 23:00 Dose: 25 mls/hr Piperacillin Sod/Tazobactam Sod (Zosyn 3.375 Gm Iv Premix) 3.375 gm in 50 mls @ 100 mls/hr IVPB Q6H [facility] Last Admin: 09/13/17 07:55 Dose: 100 mls/hr Fat Emulsion Intravenous (Intralipid 20%) 500 mls @ 50 mls/hr IV TTS@1800 [facility] Stop: 09/16/17 03:59 Last Admin: 09/11/17 18:56 Dose: 50 mls/hr Albumin Human (Albumin Human 25% (12.5 Gm/50 Ml)) 50 mls @ 50 mls/hr IV Q8 [facility] Last Admin: 09/13/17 05:18 Dose: 50 mls/hr Chromium/Copper/Manganese/Zinc 1 ml/ Multivitamins/Vitamin C 10 ml/ Amino Acids 1,011 mls @ 42 mls/hr IV .Q24H [facility] Stop: 09/13/17 17:59 Last Admin: 09/13/17 04:01 Dose: 42 mls/hr Magnesium Sulfate/Dextrose (Magnesium Sulfate 1 Gm/100 Ml D5w) 1 gm in 100 mls @ 100 mls/hr IVPB Q1H [facility] Stop: 09/13/17 09:29 Last Admin: 09/13/17 07:54 Dose: 100 mls/hr Lorazepam (Ativan) 1 mg IVP ONCE PRN PRN Reason: Agitation Last Admin: 09/07/17 13:55 Dose: 1 mg Morphine Sulfate (Morphine) 4 mg IVP Q4 PRN PRN Reason: Pain, moderate (4-7) Last Admin: 09/13/17 06:55 Dose: 4 mg Ondansetron HCl (Zofran Tab) 4 mg PO Q8 PRN PRN Reason: nausea Pantoprazole Sodium (Protonix Ec Tab) 40 mg PO DAILY [facility] Last Admin: 09/12/17 09:35 Dose: 40 mg Potassium Chloride (K-Dur 20 Meq Er Tab) 40 meq PO BRK [facility] Last Admin: 09/13/17 07:54 Dose: 40 meq Vitamin A (Vitamin A & D Oint Ud Foilpak) 1 ea TOP DAILY [facility] Last Admin: 09/12/17 09:34 Dose: 1 ea - Labs Labs: 09/13/17 08:04 09/12/17 14:53 PT 16.1 SECONDS (9.7-12.2) H 09/04/17 14:19 INR 1.4 09/04/17 14:19 APTT 32 SECONDS (21-34) 09/04/17 14:19 - Constitutional Appears: Non-toxic - Head Exam Head Exam: ATRAUMATIC - ENT Exam ENT Exam: Mucous Membranes Moist - Cardiovascular Exam Cardiovascular Exam: REGULAR RHYTHM - GI/Abdominal Exam GI & Abdominal Exam: Soft - Extremities Exam Extremities Exam: absent: Calf Tenderness - Back Exam Back Exam: absent: CVA tenderness (L), CVA tenderness (R) - Neurological Exam Neurological Exam: Alert, Awake, Oriented x3 - Psychiatric Exam Psychiatric exam: Normal Affect - Skin Skin Exam: Warm Assessment and Plan - Assessment and Plan (Free Text) Assessment: Extraovarian primary peritoneal carcinoma HemeOn Consulted, Dr. Hdez, f/u recs supportive care patient requesting chemotherapy however discussed concern for inability to tolerate chemotherapy. will discuss with the pts daughter CT scan shows progression of her disease despite cytoreductive surgery Palliated care consult, Rosa, f/u recs Continue Morphine for pain 09/13: Dr. Hdez is not recommending any further chemo as patient is extremely weak and poor candidate; will continue with supportive/comfort care; please refer to palliative care consult for further recs Anemia 09/13: HbG 9.0 today; appropriate response; still pending FOBT 09/12/17: Hgb 6.3 (rechecked on peripheral line); Transfuse 2u PRBC. f/u repeat UA + FOBT anemia of chronic disease FOBT positive transfusion support PRN Leukocytosis 09/13: remains elevated on Pip/tazo Continue piperacillin tazobactam. UTI Urine culture grew yeast. Diflucan) 100 mg PO DAILY [facility] Decrease oral intake 09/12: GI consult, Dr. Norris - for possible PEG tube. f/u recs. Fat Emulsion Intravenous (Intralipid 20%) 500 mls @ 50 mls/hr IV TTS@1800 [facility] 09/13: started Marinol 5mg BID; will see how helps nausea and oral intake; patient does not have dysphagia but is simply not eating Nausea Continue Zofran Tab) 4 mg PO Q8 PRN Electrolyte Imbalance 09/13: gave 2 more G of Mag; hyponatremia as well; will continue to monitor 09/12: Hypomagnesemia, Mg 1.0 -> 2 bags mag sulfate Prophylaxis SCDs Lovenox) 40 mg SC DAILY [facility] Protonix Ec Tab) 40 mg PO DAILY [facility] Code Status: DNR/DNI Hospice eval placed 09/13; pending recs All management as per Dr. Cammie Peres
[2017-09-13] MEDS: Vitamins A & D Oint UD Foilpak TOP SCH (09:11)
[2017-09-13] MEDS: Enoxaparin 40 mg Syringe SC SCH (09:11)
[2017-09-13] MEDS: Pantoprazole 40 mg EC Tab PO SCH (09:12)
[2017-09-13 09:17] LABS: ALB/GLOB RATIO 0.9 (1.0-2.1); ALKALINE PHOSPHATASE 93 U/L (38-126); ALT/SGPT 34 U/L (9-52); AST/SGOT 76 U/L (14-36); BILIRUBIN,TOTAL 2.5 mg/dL (0.2-1.3); BLOOD UREA NITROGEN 15 mg/dL (7-17); CALCIUM 7.2 mg/dl (8.6-10.4); CARBON DIOXIDE 22 mmol/L (22-30); CHLORIDE 98 mmol/L (98-107); GFR AFRICAN-AMERICAN > 60; GLUCOSE,RANDOM 94 mg/dL (65-105); MAGNESIUM 1.4 mg/dL (1.6-2.3); PHOSPHOROUS 2.5 mg/dL (2.5-4.5); POTASSIUM 4.3 mmol/L (3.6-5.2); SODIUM 131 mmol/L (132-148); TOTAL PROTEIN 5.7 g/dL (6.3-8.3)
[2017-09-13 10:19] LABS: NEUTROPHIL 95 % (50-75); TOTAL CELLS COUNTED 100
--- NOTE | 2017-09-13 10:55 | CP.PCM.CON ---
History of Present Illness - History of Present Illness History of Present Illness: 62 yo female with h/o metastatic ca with poor po intake following debulking surgery done elsewhere with delayed wound healing. Patient had a wound vac inserted. Asked to see for possible PEG tube due to poor po intake. In review of records and discussion with patient, she does not want any further invasive intervention and Paliative Care consult recommended comfort care only. Review of Systems - Review of Systems Systems not reviewed;Unavailable: Altered Mental Status Past Patient History - Infectious Disease Hx of Infectious Diseases: None - Past Social History Smoking Status: Unknown If Ever Smoked - CARDIAC Hx Hypertension: Yes - HEMATOLOGICAL/ONCOLOGICAL Hx Cancer: Yes (UTERUS) - MUSCULOSKELETAL/RHEUMATOLOGICAL Hx Unsteady Gait: Yes - PSYCHIATRIC Hx Substance Use: No - SURGICAL HISTORY Hx Surgeries: Yes Other/Comment: UTERINE NEOPLASM SURGERY - ANESTHESIA Hx Anesthesia: Yes Meds Allergies/Adverse Reactions: Allergies Allergy/AdvReac Type Severity Reaction Status Date / Time No Known Allergies Allergy Verified 09/04/17 14:40 - Medications Medications: Current Medications Al Hydrox/Mg Hydrox/Simethicone (Maalox 30 Ml) 30 ml PO Q4 PRN PRN Reason: heartburn Last Admin: 09/11/17 18:11 Dose: 30 ml Aspirin (Ecotrin) 81 mg PO DAILY [facility] Last Admin: 09/13/17 09:12 Dose: 81 mg Calcitriol (Rocaltrol) 0.25 mcg PO DAILY [facility] Last Admin: 09/13/17 09:12 Dose: 0.25 mcg Dronabinol (Marinol) 5 mg PO BID [facility] Last Admin: 09/13/17 09:12 Dose: 5 mg Enoxaparin Sodium (Lovenox) 40 mg SC DAILY [facility] Last Admin: 09/13/17 09:11 Dose: 40 mg Fluconazole (Diflucan) 100 mg PO DAILY [facility] Stop: 09/16/17 23:59 Last Admin: 09/13/17 09:12 Dose: 100 mg Gabapentin (Neurontin) 300 mg PO BID [facility] Last Admin: 09/13/17 09:12 Dose: 300 mg Sodium Chloride (Sodium Chloride 0.9%) 1,000 mls @ 25 mls/hr IV .Q24H [facility] Last Admin: 09/10/17 23:00 Dose: 25 mls/hr Piperacillin Sod/Tazobactam Sod (Zosyn 3.375 Gm Iv Premix) 3.375 gm in 50 mls @ 100 mls/hr IVPB Q6H [facility] Last Admin: 09/13/17 07:55 Dose: 100 mls/hr Fat Emulsion Intravenous (Intralipid 20%) 500 mls @ 50 mls/hr IV TTS@1800 [facility] Stop: 09/16/17 03:59 Last Admin: 09/11/17 18:56 Dose: 50 mls/hr Albumin Human (Albumin Human 25% (12.5 Gm/50 Ml)) 50 mls @ 50 mls/hr IV Q8 [facility] Last Admin: 09/13/17 05:18 Dose: 50 mls/hr Chromium/Copper/Manganese/Zinc 1 ml/ Multivitamins/Vitamin C 10 ml/ Amino Acids 1,011 mls @ 42 mls/hr IV .Q24H [facility] Stop: 09/13/17 17:59 Last Admin: 09/13/17 04:01 Dose: 42 mls/hr Multivitamins/Vitamin C 10 ml/Chromium/Copper/Manganese/Zinc 1 ml/ Amino Acids 1,011 mls @ 42 mls/hr IV .Q24H [facility] Stop: 09/14/17 17:59 Lorazepam (Ativan) 1 mg IVP ONCE PRN PRN Reason: Agitation Last Admin: 09/07/17 13:55 Dose: 1 mg Morphine Sulfate (Morphine) 4 mg IVP Q4 PRN PRN Reason: Pain, moderate (4-7) Last Admin: 09/13/17 06:55 Dose: 4 mg Ondansetron HCl (Zofran Tab) 4 mg PO Q8 PRN PRN Reason: nausea Pantoprazole Sodium (Protonix Ec Tab) 40 mg PO DAILY [facility] Last Admin: 09/13/17 09:12 Dose: 40 mg Potassium Chloride (K-Dur 20 Meq Er Tab) 40 meq PO BRK [facility] Last Admin: 09/13/17 07:54 Dose: 40 meq Vitamin A (Vitamin A & D Oint Ud Foilpak) 1 ea TOP DAILY [facility] Last Admin: 09/13/17 09:11 Dose: 1 ea Physical Exam - Constitutional Appears: No Acute Distress - Respiratory Exam Respiratory Exam: Decreased Breath Sounds - Cardiovascular Exam Cardiovascular Exam: REGULAR RHYTHM - GI/Abdominal Exam GI & Abdominal Exam: Distended, Hypoactive Bowel Sounds, Mass, Tenderness. absent: Rebound Additional comments: Patient with large midline scar and "wound vac" inserted in midline in epigastrum (same area where PEG would be located). +rock hard upper abdominal mass and mild tenderness adjacent to wound vac site. - Rectal Exam Rectal Exam: Deferred - Extremities Exam Extremities exam: Positive for: pedal edema - Neurological Exam Neurological exam: Alert, Oriented x3 - Psychiatric Exam Psychiatric exam: Depressed, Flat Affect - Skin Skin Exam: Dry, Warm Results - Vital Signs Recent Vital Signs: Last Vital Signs Temp 98.4 F 09/13/17 08:19 Pulse 66 09/13/17 08:19 Resp 18 09/13/17 08:19 BP 148/80 09/13/17 08:19 Pulse Ox 100 09/13/17 08:19 - Labs Result Diagrams: 09/13/17 08:04 09/13/17 08:04 Labs: Laboratory Results - last 24 hr 09/12/17 09/12/17 09/12/17 11:26 12:50 14:53 WBC 20.5 H D RBC 2.06 L Hgb 6.3 L* D Hct 19.5 L MCV 94.5 MCH 30.7 MCHC 32.5 L RDW 23.3 H Plt Count 149 MPV 8.9 Neut % (Auto) 86.4 H Lymph % (Auto) 7.4 L Gilchrist % (Auto) 5.4 Eos % (Auto) 0.4 Baso % (Auto) 0.4 Neut # 17.7 H Lymph # 1.5 Gilchrist # 1.1 H Eos # 0.1 Baso # 0.1 Neutrophils % (Manual) 86 H Band Neutrophils % 3 H Lymphocytes % (Manual) 9 L Monocytes % (Manual) 2 Platelet Estimate Normal Polychromasia Slight Hypochromasia (manual) Moderate Anisocytosis (manual) Moderate Macrocytosis (manual) Slight Target Cells Slight Sodium 126 L Potassium 4.4 Chloride 98 Carbon Dioxide 22 Anion Gap 11 BUN 15 Creatinine 0.7 Est GFR ( Amer) > 60 Est GFR (Non-Af Amer) > 60 POC Glucose (mg/dL) 142 H Random Glucose 123 H Calcium 6.7 L Phosphorus 2.7 Magnesium 1.0 L* Total Bilirubin 0.9 AST 55 H D ALT 34 Alkaline Phosphatase 95 Total Protein 6.4 Albumin 2.5 L Globulin 3.9 Albumin/Globulin Ratio 0.6 L Urine Color Urine Clarity Urine pH Ur Specific [place] Urine Protein Urine Glucose (UA) Urine Ketones Urine Blood Urine Nitrate Urine Bilirubin Urine Urobilinogen Ur Leukocyte Esterase Urine WBC (Auto) Urine RBC (Auto) Urine WBC Clumps (Auto) Ur Squamous Epith Cells Urine Bacteria Urine Yeast (Budding) Blood Type Antibody Screen 09/12/17 09/12/17 09/12/17 14:53 16:12 16:20 WBC RBC Hgb Hct MCV MCH MCHC RDW Plt Count MPV Neut % (Auto) Lymph % (Auto) [place]christ % (Auto) Eos % (Auto) Baso % (Auto) Neut # Lymph # [place] # Eos # Baso # Neutrophils % (Manual) Band Neutrophils % Lymphocytes % (Manual) Monocytes % (Manual) Platelet Estimate Polychromasia Hypochromasia (manual) Anisocytosis (manual) Macrocytosis (manual) Target Cells Sodium 126 L Potassium 4.8 Chloride 98 Carbon Dioxide 23 Anion Gap 10 BUN 15 Creatinine 0.6 L Est GFR ( Amer) > 60 Est GFR (Non-Af Amer) > 60 POC Glucose (mg/dL) 150 H Random Glucose 114 H Calcium 7.1 L Phosphorus Magnesium Total Bilirubin 1.3 AST 58 H ALT 31 Alkaline Phosphatase 93 Total Protein 5.5 L Albumin 2.6 L Globulin 2.9 Albumin/Globulin Ratio 0.9 L Urine Color Urine Clarity Urine pH Ur Specific [place] Urine Protein Urine Glucose (UA) Urine Ketones Urine Blood Urine Nitrate Urine Bilirubin Urine Urobilinogen Ur Leukocyte Esterase Urine WBC (Auto) Urine RBC (Auto) Urine WBC Clumps (Auto) Ur Squamous Epith Cells Urine Bacteria Urine Yeast (Budding) Blood Type O POSITIVE Antibody Screen Negative 09/12/17 09/13/17 09/13/17 21:42 04:59 06:26 WBC RBC Hgb Hct MCV MCH MCHC RDW Plt Count MPV Neut % (Auto) Lymph % (Auto) [place] % (Auto) Eos % (Auto) Baso % (Auto) Neut # Lymph # [place] # Eos # Baso # Neutrophils % (Manual) Band Neutrophils % Lymphocytes % (Manual) Monocytes % (Manual) Platelet Estimate Polychromasia Hypochromasia (manual) Anisocytosis (manual) Macrocytosis (manual) Target Cells Sodium Potassium Chloride Carbon Dioxide Anion Gap BUN Creatinine Est GFR ( Amer) Est GFR (Non-Af Amer) POC Glucose (mg/dL) 108 119 H Random Glucose Calcium Phosphorus Magnesium Total Bilirubin AST ALT Alkaline Phosphatase Total Protein Albumin Globulin Albumin/Globulin Ratio Urine Color Jasmine Urine Clarity Turbid Urine pH 5.0 Ur Specific [place] 1.014 Urine Protein 2+ H Urine Glucose (UA) Normal Urine Ketones Negative Urine Blood 3+ H Urine Nitrate Negative Urine Bilirubin Negative Urine Urobilinogen Normal Ur Leukocyte Esterase 3+ H Urine WBC (Auto) 1994 H Urine RBC (Auto) 480 H Urine WBC Clumps (Auto) Many H Ur Squamous Epith Cells 1 Urine Bacteria Many H Urine Yeast (Budding) Many H Blood Type Antibody Screen 09/13/17 09/13/17 08:04 08:04 WBC 22.6 H RBC 2.98 L Hgb 9.0 L D Hct 26.6 L MCV 89.4 D MCH 30.3 MCHC 33.8 RDW 18.4 H Plt Count 147 MPV 9.3 Neut % (Auto) 90.0 H Lymph % (Auto) 4.3 L [place] % (Auto) 5.3 Eos % (Auto) 0.2 Baso % (Auto) 0.2 Neut # 20.3 H Lymph # 1.0 [place] # 1.2 H Eos # 0.1 Baso # 0.1 Neutrophils % (Manual) 95 H Band Neutrophils % 1 Lymphocytes % (Manual) 1 L Monocytes % (Manual) 3 Platelet Estimate Normal Polychromasia Slight Hypochromasia (manual) Slight Anisocytosis (manual) Slight Macrocytosis (manual) Target Cells Sodium 131 L Potassium 4.3 Chloride 98 Carbon Dioxide 22 Anion Gap 15 BUN 15 Creatinine 0.6 L Est GFR ( Amer) > 60 Est GFR (Non-Af Amer) > 60 POC Glucose (mg/dL) Random Glucose 94 Calcium 7.2 L Phosphorus 2.5 Magnesium 1.4 L Total Bilirubin 2.5 H AST 76 H D ALT 34 Alkaline Phosphatase 93 Total Protein 5.7 L Albumin 2.8 L Globulin 2.9 Albumin/Globulin Ratio 0.9 L Urine Color Urine Clarity Urine pH Ur Specific [place] Urine Protein Urine Glucose (UA) Urine Ketones Urine Blood Urine Nitrate Urine Bilirubin Urine Urobilinogen Ur Leukocyte Esterase Urine WBC (Auto) Urine RBC (Auto) Urine WBC Clumps (Auto) Ur Squamous Epith Cells Urine Bacteria Urine Yeast (Budding) Blood Type Antibody Screen Assessment & Plan (1) Malnutrition Assessment and Plan: 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 She is clearly not a candidate for a PEG tube at this time due to abdominal findings to exam and if needed would require a surgical placement to identify a suitable location that would not penetrate tumor mass and where stomach or small bowel is adjacent to abdominal wall. It appears as well that patients desire is for comfort care/ hospice only at this time with prognosis appearing to be grave. Will sign off at this time, recall as needed. Thank you. Status: Acute (2) Anemia Assessment and Plan: No overt GI bleeding. Likely due to chronic blood loss and effects of CTX. Supportive care. PPI prophylaxis. Status: Acute (3) Extraovarian primary peritoneal carcinoma Assessment and Plan: Palliative care as per Oncology and Palliative production support consultant. Patient does not want further aggressive Rx. Consider hospice evaluation. Status: Chronic
--- NOTE | 2017-09-13 17:52 | CP.PCM.PN ---
Subjective - Date & Time of Evaluation Date of Evaluation: 09/12/17 Time of Evaluation: 12:00 - Subjective Subjective: Fatigued, weak Objective - Vital Signs/Intake and Output Vital Signs (last 24 hours): Temp Pulse Resp BP Pulse Ox 99.3 F 99 H 18 120/80 100 09/13/17 15:20 09/13/17 16:00 09/13/17 15:20 09/13/17 15:20 09/13/17 15:20 Intake and Output: 09/13/17 09/13/17 06:59 18:59 Intake Total 1672 764 Output Total 1000 500 Balance 672 264 - Medications Medications: Current Medications Al Hydrox/Mg Hydrox/Simethicone (Maalox 30 Ml) 30 ml PO Q4 PRN PRN Reason: heartburn Last Admin: 09/11/17 18:11 Dose: 30 ml Aspirin (Ecotrin) 81 mg PO DAILY [facility] Last Admin: 09/13/17 09:12 Dose: 81 mg Calcitriol (Rocaltrol) 0.25 mcg PO DAILY [facility] Last Admin: 09/13/17 09:12 Dose: 0.25 mcg Dronabinol (Marinol) 5 mg PO BID [facility] Last Admin: 09/13/17 09:12 Dose: 5 mg Enoxaparin Sodium (Lovenox) 40 mg SC DAILY [facility] Last Admin: 09/13/17 09:11 Dose: 40 mg Fluconazole (Diflucan) 100 mg PO DAILY [facility] Stop: 09/16/17 23:59 Last Admin: 09/13/17 09:12 Dose: 100 mg Gabapentin (Neurontin) 300 mg PO BID [facility] Last Admin: 09/13/17 09:12 Dose: 300 mg Sodium Chloride (Sodium Chloride 0.9%) 1,000 mls @ 25 mls/hr IV .Q24H [facility] Last Admin: 09/10/17 23:00 Dose: 25 mls/hr Piperacillin Sod/Tazobactam Sod (Zosyn 3.375 Gm Iv Premix) 3.375 gm in 50 mls @ 100 mls/hr IVPB Q6H [facility] Last Admin: 09/13/17 13:15 Dose: 100 mls/hr Fat Emulsion Intravenous (Intralipid 20%) 500 mls @ 50 mls/hr IV TTS@1800 [facility] Stop: 09/16/17 03:59 Last Admin: 09/11/17 18:56 Dose: 50 mls/hr Albumin Human (Albumin Human 25% (12.5 Gm/50 Ml)) 50 mls @ 50 mls/hr IV Q8 [facility] Last Admin: 09/13/17 13:15 Dose: 50 mls/hr Chromium/Copper/Manganese/Zinc 1 ml/ Multivitamins/Vitamin C 10 ml/ Amino Acids 1,011 mls @ 42 mls/hr IV .Q24H [facility] Stop: 09/13/17 17:59 Last Admin: 09/13/17 04:01 Dose: 42 mls/hr Multivitamins/Vitamin C 10 ml/Chromium/Copper/Manganese/Zinc 1 ml/ Amino Acids 1,011 mls @ 42 mls/hr IV .Q24H [facility] Stop: 09/14/17 17:59 Lorazepam (Ativan) 1 mg IVP ONCE PRN PRN Reason: Agitation Last Admin: 09/07/17 13:55 Dose: 1 mg Morphine Sulfate (Morphine) 4 mg IVP Q4 PRN PRN Reason: Pain, moderate (4-7) Last Admin: 09/13/17 06:55 Dose: 4 mg Ondansetron HCl (Zofran Tab) 4 mg PO Q8 PRN PRN Reason: nausea Pantoprazole Sodium (Protonix Ec Tab) 40 mg PO DAILY [facility] Last Admin: 09/13/17 09:12 Dose: 40 mg Potassium Chloride (K-Dur 20 Meq Er Tab) 40 meq PO BRK [facility] Last Admin: 09/13/17 07:54 Dose: 40 meq Vitamin A (Vitamin A & D Oint Ud Foilpak) 1 ea TOP DAILY [facility] Last Admin: 09/13/17 09:11 Dose: 1 ea - Labs Labs: 09/13/17 08:04 09/13/17 08:04 PT 16.1 SECONDS (9.7-12.2) H 09/04/17 14:19 INR 1.4 09/04/17 14:19 APTT 32 SECONDS (21-34) 09/04/17 14:19 - Head Exam Head Exam: ATRAUMATIC - Eye Exam Eye Exam: Normal appearance - ENT Exam ENT Exam: Mucous Membranes Dry - Respiratory Exam Respiratory Exam: NORMAL BREATHING PATTERN - Cardiovascular Exam Cardiovascular Exam: +S1, +S2 - GI/Abdominal Exam GI & Abdominal Exam: Normal Bowel Sounds - Extremities Exam Extremities Exam: Normal Inspection - Neurological Exam Neurological Exam: Oriented x3 Assessment and Plan (1) Anemia Assessment & Plan: chronic disease Status: Acute (2) Extraovarian primary peritoneal carcinoma Assessment & Plan: supportive care not a chemotherapy candidate consider hospice evaluation Status: Chronic
[2017-09-13] MEDS ORDERED: PPN #3 IV ONE (18:00)
[2017-09-13] MEDS: Fat Emulsion 20% IV 500 ML IV SCH (18:10)
--- NOTE | 2017-09-13 18:23 | CP.PCM.PN ---
Subjective - Date & Time of Evaluation Date of Evaluation: 09/13/17 Time of Evaluation: 16:00 - Subjective Subjective: Weak, fatigued Objective - Vital Signs/Intake and Output Vital Signs (last 24 hours): Temp Pulse Resp BP Pulse Ox 99.3 F 99 H 18 120/80 100 09/13/17 15:20 09/13/17 16:00 09/13/17 15:20 09/13/17 15:20 09/13/17 15:20 Intake and Output: 09/13/17 09/13/17 06:59 18:59 Intake Total 1672 764 Output Total 1000 500 Balance 672 264 - Medications Medications: Current Medications Al Hydrox/Mg Hydrox/Simethicone (Maalox 30 Ml) 30 ml PO Q4 PRN PRN Reason: heartburn Last Admin: 09/11/17 18:11 Dose: 30 ml Aspirin (Ecotrin) 81 mg PO DAILY [facility] Last Admin: 09/13/17 09:12 Dose: 81 mg Calcitriol (Rocaltrol) 0.25 mcg PO DAILY [facility] Last Admin: 09/13/17 09:12 Dose: 0.25 mcg Dronabinol (Marinol) 5 mg PO BID [facility] Last Admin: 09/13/17 18:10 Dose: 5 mg Enoxaparin Sodium (Lovenox) 40 mg SC DAILY [facility] Last Admin: 09/13/17 09:11 Dose: 40 mg Fluconazole (Diflucan) 100 mg PO DAILY [facility] Stop: 09/16/17 23:59 Last Admin: 09/13/17 09:12 Dose: 100 mg Gabapentin (Neurontin) 300 mg PO BID [facility] Last Admin: 09/13/17 18:13 Dose: 300 mg Sodium Chloride (Sodium Chloride 0.9%) 1,000 mls @ 25 mls/hr IV .Q24H [facility] Last Admin: 09/10/17 23:00 Dose: 25 mls/hr Piperacillin Sod/Tazobactam Sod (Zosyn 3.375 Gm Iv Premix) 3.375 gm in 50 mls @ 100 mls/hr IVPB Q6H [facility] Last Admin: 09/13/17 13:15 Dose: 100 mls/hr Fat Emulsion Intravenous (Intralipid 20%) 500 mls @ 50 mls/hr IV TTS@1800 [facility] Stop: 09/16/17 03:59 Last Admin: 09/13/17 18:10 Dose: 50 mls/hr Albumin Human (Albumin Human 25% (12.5 Gm/50 Ml)) 50 mls @ 50 mls/hr IV Q8 [facility] Last Admin: 09/13/17 13:15 Dose: 50 mls/hr Multivitamins/Vitamin C 10 ml/Chromium/Copper/Manganese/Zinc 1 ml/ Amino Acids 1,011 mls @ 42 mls/hr IV .Q24H [facility] Stop: 09/14/17 17:59 Last Admin: 09/13/17 18:11 Dose: 42 mls/hr Lorazepam (Ativan) 1 mg IVP ONCE PRN PRN Reason: Agitation Last Admin: 09/07/17 13:55 Dose: 1 mg Morphine Sulfate (Morphine) 4 mg IVP Q4 PRN PRN Reason: Pain, moderate (4-7) Last Admin: 09/13/17 18:11 Dose: 4 mg Ondansetron HCl (Zofran Tab) 4 mg PO Q8 PRN PRN Reason: nausea Pantoprazole Sodium (Protonix Ec Tab) 40 mg PO DAILY [facility] Last Admin: 09/13/17 09:12 Dose: 40 mg Potassium Chloride (K-Dur 20 Meq Er Tab) 40 meq PO BRK [facility] Last Admin: 09/13/17 07:54 Dose: 40 meq Vitamin A (Vitamin A & D Oint Ud Foilpak) 1 ea TOP DAILY [facility] Last Admin: 09/13/17 09:11 Dose: 1 ea - Labs Labs: 09/13/17 08:04 09/13/17 08:04 PT 16.1 SECONDS (9.7-12.2) H 09/04/17 14:19 INR 1.4 09/04/17 14:19 APTT 32 SECONDS (21-34) 09/04/17 14:19 - Head Exam Head Exam: ATRAUMATIC - ENT Exam ENT Exam: Mucous Membranes Dry - Respiratory Exam Respiratory Exam: NORMAL BREATHING PATTERN - Cardiovascular Exam Cardiovascular Exam: +S1, +S2 - GI/Abdominal Exam GI & Abdominal Exam: Normal Bowel Sounds Assessment and Plan (1) Anemia Assessment & Plan: chronic disease transfusion support PRN Status: Acute (2) Extraovarian primary peritoneal carcinoma Assessment & Plan: supportive care not a treatment candidate recommend hospice evaluation Status: Chronic
--- NOTE | 2017-09-13 18:52 | CP.PCM.PN ---
Subjective - Date & Time of Evaluation Date of Evaluation: 09/13/17 Time of Evaluation: 10:00 - Subjective Subjective: clinically same Objective - Vital Signs/Intake and Output Vital Signs (last 24 hours): Temp Pulse Resp BP Pulse Ox 99.3 F 99 H 18 120/80 100 09/13/17 15:20 09/13/17 16:00 09/13/17 15:20 09/13/17 15:20 09/13/17 15:20 Intake and Output: 09/13/17 09/13/17 06:59 18:59 Intake Total 1672 764 Output Total 1000 500 Balance 672 264 - Medications Medications: Current Medications Al Hydrox/Mg Hydrox/Simethicone (Maalox 30 Ml) 30 ml PO Q4 PRN PRN Reason: heartburn Last Admin: 09/11/17 18:11 Dose: 30 ml Aspirin (Ecotrin) 81 mg PO DAILY [facility] Last Admin: 09/13/17 09:12 Dose: 81 mg Calcitriol (Rocaltrol) 0.25 mcg PO DAILY [facility] Last Admin: 09/13/17 09:12 Dose: 0.25 mcg Dronabinol (Marinol) 5 mg PO BID [facility] Last Admin: 09/13/17 18:10 Dose: 5 mg Enoxaparin Sodium (Lovenox) 40 mg SC DAILY [facility] Last Admin: 09/13/17 09:11 Dose: 40 mg Fluconazole (Diflucan) 100 mg PO DAILY [facility] Stop: 09/16/17 23:59 Last Admin: 09/13/17 09:12 Dose: 100 mg Gabapentin (Neurontin) 300 mg PO BID [facility] Last Admin: 09/13/17 18:13 Dose: 300 mg Sodium Chloride (Sodium Chloride 0.9%) 1,000 mls @ 25 mls/hr IV .Q24H [facility] Last Admin: 09/10/17 23:00 Dose: 25 mls/hr Piperacillin Sod/Tazobactam Sod (Zosyn 3.375 Gm Iv Premix) 3.375 gm in 50 mls @ 100 mls/hr IVPB Q6H [facility] Last Admin: 09/13/17 13:15 Dose: 100 mls/hr Fat Emulsion Intravenous (Intralipid 20%) 500 mls @ 50 mls/hr IV TTS@1800 [facility] Stop: 09/16/17 03:59 Last Admin: 09/13/17 18:10 Dose: 50 mls/hr Albumin Human (Albumin Human 25% (12.5 Gm/50 Ml)) 50 mls @ 50 mls/hr IV Q8 [facility] Last Admin: 09/13/17 13:15 Dose: 50 mls/hr Multivitamins/Vitamin C 10 ml/Chromium/Copper/Manganese/Zinc 1 ml/ Amino Acids 1,011 mls @ 42 mls/hr IV .Q24H [facility] Stop: 09/14/17 17:59 Last Admin: 09/13/17 18:11 Dose: 42 mls/hr Lorazepam (Ativan) 1 mg IVP ONCE PRN PRN Reason: Agitation Last Admin: 09/07/17 13:55 Dose: 1 mg Morphine Sulfate (Morphine) 4 mg IVP Q4 PRN PRN Reason: Pain, moderate (4-7) Last Admin: 09/13/17 18:11 Dose: 4 mg Ondansetron HCl (Zofran Tab) 4 mg PO Q8 PRN PRN Reason: nausea Pantoprazole Sodium (Protonix Ec Tab) 40 mg PO DAILY [facility] Last Admin: 09/13/17 09:12 Dose: 40 mg Potassium Chloride (K-Dur 20 Meq Er Tab) 40 meq PO BRK [facility] Last Admin: 09/13/17 07:54 Dose: 40 meq Vitamin A (Vitamin A & D Oint Ud Foilpak) 1 ea TOP DAILY [facility] Last Admin: 09/13/17 09:11 Dose: 1 ea - Labs Labs: 09/13/17 08:04 09/13/17 08:04 PT 16.1 SECONDS (9.7-12.2) H 09/04/17 14:19 INR 1.4 09/04/17 14:19 APTT 32 SECONDS (21-34) 09/04/17 14:19 - Constitutional Appears: Well - Head Exam Head Exam: ATRAUMATIC, NORMAL INSPECTION, NORMOCEPHALIC - Eye Exam Eye Exam: EOMI, Normal appearance, PERRL Pupil Exam: NORMAL ACCOMODATION, PERRL - ENT Exam ENT Exam: Mucous Membranes Moist, Normal Exam - Neck Exam Neck Exam: Full ROM, Normal Inspection. 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
[2017-09-13] MEDS: Sodium Chloride 0.9% 1,000 ML IV SCH (23:48)
[2017-09-14] MEDS: Piperacill/Tazo 3.375gm in Dex 3.375 GM/50 ML BAG IVPB SCH ×4 (00:59→19:08)
[2017-09-14 07:05] LABS: ALKALINE PHOSPHATASE 80 U/L (38-126); ALT/SGPT 35 U/L (9-52); AST/SGOT 63 U/L (14-36); BILIRUBIN,TOTAL 0.9 mg/dL (0.2-1.3); BLOOD UREA NITROGEN 14 mg/dL (7-17); CALCIUM 7.2 mg/dl (8.6-10.4); CARBON DIOXIDE 23 mmol/L (22-30); CHLORIDE 100 mmol/L (98-107); GFR AFRICAN-AMERICAN > 60; GLUCOSE,RANDOM 111 mg/dL (65-105); MAGNESIUM 1.6 mg/dL (1.6-2.3); PHOSPHOROUS 2.6 mg/dL (2.5-4.5); POTASSIUM 4.3 mmol/L (3.6-5.2); SODIUM 132 mmol/L (132-148); TOTAL PROTEIN 6.6 g/dL (6.3-8.3)
[2017-09-14 07:06] LABS: ALB/GLOB RATIO 0.8 (1.0-2.1)
[2017-09-14 07:28] LABS: BASO # 0.1 K/uL (0.0-0.2); BASO % 0.4 % (0.0-2.0); EOS # 0.1 K/uL (0.0-0.7); EOS % 0.6 % (0.0-4.0); HEMATOCRIT 23.2 % (34.0-47.0); LYMPH # 1.3 K/uL (1.0-4.3); MEAN CORPUSCULAR HEMOGLOBIN 30.4 pg (27.0-31.0); MEAN CORPUSCULAR HGB CONC 33.5 g/dL (33.0-37.0); MEAN PLATELET VOLUME 9.1 fL (7.2-11.7); MONO # 1.1 K/uL (0.0-0.8); MONO % 5.9 % (0.0-10.0); PLATELET COUNT 147 K/uL (130-400); RED CELL DISTRIBUTION WIDTH 18.9 % (11.5-14.5); WHITE BLOOD COUNT 18.4 K/uL (4.8-10.8)
[2017-09-14] MEDS: Morphine 4 MG/ML VIAL IVP PRN ×3 (07:55→19:04)
[2017-09-14] MEDS: Potassium Chloride 20 mEq ER Tab PO SCH (07:58)
[2017-09-14 08:54] LABS: EOSINOPHIL 2 % (0-4); NEUTROPHIL 82 % (50-75); TOTAL CELLS COUNTED 100
[2017-09-14] MEDS: Pantoprazole 40 mg EC Tab PO SCH (10:29)
[2017-09-14] MEDS: Enoxaparin 40 mg Syringe SC SCH (10:32)
[2017-09-14] MEDS: Vitamins A & D Oint UD Foilpak TOP SCH (10:33)
--- NOTE | 2017-09-14 11:41 | CP.PCM.PN ---
Subjective - Date & Time of Evaluation Date of Evaluation: 09/14/17 Time of Evaluation: 08:00 - Subjective Subjective: PGY2 Resident - Medicine Progress Note Patient seen and examined at bedside. No acute distress. No overnight events. Patient is AAOx2, not oriented to time. Continued decrease in appetite. Palliative care nurse spoke with family and patient, supportive care only. Plan is for [place] hosp[facility], PPN will likely be stopped as patient cannot go to [place] with PPN, family aware. Not a PEG candidate and patient does not want a PEG tube. [facility] Patient denies any additional acute complaints at this time. Denies f/c, chest pain, palpitations, d/c, n/v, or edema. Family meeting took place and decision was made to make patient DNR/DNI. Objective - Vital Signs/Intake and Output Vital Signs (last 24 hours): Temp Pulse Resp BP Pulse Ox 99.3 F 79 20 156/71 H 97 09/14/17 08:36 09/14/17 08:36 09/14/17 08:36 09/14/17 08:36 09/14/17 08:36 Intake and Output: 09/14/17 09/14/17 06:59 18:59 Intake Total 632 772 Output Total 550 Balance 82 772 - Medications Medications: Current Medications Al Hydrox/Mg Hydrox/Simethicone (Maalox 30 Ml) 30 ml PO Q4 PRN PRN Reason: heartburn Last Admin: 09/11/17 18:11 Dose: 30 ml Aspirin (Ecotrin) 81 mg PO DAILY [facility] Last Admin: 09/14/17 10:30 Dose: 81 mg Calcitriol (Rocaltrol) 0.25 mcg PO DAILY [facility] Last Admin: 09/14/17 10:28 Dose: 0.25 mcg Dronabinol (Marinol) 5 mg PO BID [facility] Last Admin: 09/14/17 10:39 Dose: 5 mg Enoxaparin Sodium (Lovenox) 40 mg SC DAILY [facility] Last Admin: 09/14/17 10:32 Dose: Not Given Fluconazole (Diflucan) 100 mg PO DAILY [facility] Stop: 09/16/17 23:59 Last Admin: 09/14/17 10:32 Dose: 100 mg Gabapentin (Neurontin) 300 mg PO BID [facility] Last Admin: 09/14/17 10:31 Dose: 300 mg Piperacillin Sod/Tazobactam Sod (Zosyn 3.375 Gm Iv Premix) 3.375 gm in 50 mls @ 100 mls/hr IVPB Q6H [facility] Last Admin: 09/14/17 07:57 Dose: 100 mls/hr Albumin Human (Albumin Human 25% (12.5 Gm/50 Ml)) 50 mls @ 50 mls/hr IV Q8 [facility] Last Admin: 09/14/17 05:08 Dose: 50 mls/hr Multivitamins/Vitamin C 10 ml/Chromium/Copper/Manganese/Zinc 1 ml/ Amino Acids 1,011 mls @ 42 mls/hr IV .Q24H ONE Stop: 09/14/17 17:59 Last Admin: 09/13/17 18:11 Dose: 42 mls/hr Multivitamins/Vitamin C 10 ml/Chromium/Copper/Manganese/Zinc 1 ml/ Amino Acids 1,011 mls @ 42 mls/hr IV .Q24H ONE Stop: 09/15/17 17:59 Lorazepam (Ativan) 1 mg IVP ONCE PRN PRN Reason: Agitation Last Admin: 09/07/17 13:55 Dose: 1 mg Morphine Sulfate (Morphine) 4 mg IVP Q4 PRN PRN Reason: Pain, moderate (4-7) Last Admin: 09/14/17 07:55 Dose: 4 mg Ondansetron HCl (Zofran Tab) 4 mg PO Q8 PRN PRN Reason: nausea Pantoprazole Sodium (Protonix Ec Tab) 40 mg PO DAILY [facility] Last Admin: 09/14/17 10:29 Dose: 40 mg Potassium Chloride (K-Dur 20 Meq Er Tab) 40 meq PO BRK [facility] Last Admin: 09/14/17 07:58 Dose: 40 meq Vitamin A (Vitamin A & D Oint Ud Foilpak) 1 ea TOP DAILY [facility] Last Admin: 09/14/17 10:33 Dose: 1 ea - Labs Labs: 09/14/17 06:37 09/14/17 06:37 PT 16.1 SECONDS (9.7-12.2) H 09/04/17 14:19 INR 1.4 09/04/17 14:19 APTT 32 SECONDS (21-34) 09/04/17 14:19 - Additional Findings Additional findings: - Constitutional Appears: Chronically Ill - Head Exam Head Exam: ATRAUMATIC, NORMAL INSPECTION, NORMOCEPHALIC - Eye Exam Eye Exam: EOMI, Normal appearance, PERRL - ENT Exam ENT Exam: Mucous Membranes Moist, Normal Exam - Respiratory Exam Respiratory Exam: Decreased Breath Sounds, NORMAL BREATHING PATTERN - Cardiovascular Exam Cardiovascular Exam: Tachycardia, REGULAR RHYTHM, +S1, +S2 - GI/Abdominal Exam GI & Abdominal Exam: Distended, Firm, Guarding, Rigid, Tenderness, Diminished Bowel Sounds, Mass - Extremities Exam Extremities Exam: Pedal Edema - Neurological Exam Neurological Exam: Alert, Oriented x2 (not oriented to time) - Psychiatric Exam Psychiatric exam: Normal Affect, Normal Mood - Skin Skin Exam: Dry, Normal Color, Warm Additional comments: Wound vac in place to abd surgical wound Assessment and Plan - Assessment and Plan (Free Text) Assessment: Extraovarian primary peritoneal carcinoma [facility] Consulted, Dr. Hdez, f/u recs supportive care patient requesting chemotherapy however discussed concern for inability to tolerate chemotherapy. will discuss with the pts daughter CT scan shows progression of her disease despite cytoreductive surgery Palliated care consult, Rosa, f/u recs Continue Morphine for pain 09/13: Dr. Hdez is not recommending any further chemo as patient is extremely weak and poor candidate; will continue with supportive/comfort care; please refer to palliative care consult for further recs Anemia 09/14: Hgb 7.8, monitor. 09/13: HbG 9.0 today; appropriate response; still pending FOBT 09/12/17: Hgb 6.3 (rechecked on peripheral line); Transfuse 2u PRBC. f/u repeat UA + FOBT anemia of chronic disease FOBT positive transfusion support PRN Leukocytosis 09/13-09/14: remains elevated on Pip/tazo Continue piperacillin tazobactam. UTI Urine culture grew yeast. Diflucan) 100 mg PO DAILY [facility] Decrease oral intake 09/14: Not a PEG candidate, also patient/family do not want PEG placement. They are considering hospice. 09/12: GI consult, Dr. Norris - for possible PEG tube. f/u recs. Fat Emulsion Intravenous (Intralipid 20%) 500 mls @ 50 mls/hr IV TTS@1800 [facility] 09/13: started Marinol 5mg BID; will see how helps nausea and oral intake; patient does not have dysphagia but is simply not eating Nausea Continue Zofran Tab) 4 mg PO Q8 PRN Electrolyte Imbalance 09/13: gave 2 more G of Mag; hyponatremia as well; will continue to monitor 09/12: Hypomagnesemia, Mg 1.0 -> 2 bags mag sulfate Prophylaxis SCDs Lovenox) 40 mg SC DAILY [facility] Protonix Ec Tab) 40 mg PO DAILY [facility] Code Status: DNR/DNI Hospice eval placed 09/13; pending recs Disposition: Palliative care nurse spoke with family and patient, supportive care only. Plan is for [place] [facility], PPN will likely be stopped as patient cannot go to [place] with PPN, family aware. Not a PEG candidate and patient does not want a PEG tube. Not a chemo candidate per [facility]. All management as per Dr. Cammie Peres
--- NOTE | 2017-09-14 12:37 | CP.PCM.PN ---
Subjective - Date & Time of Evaluation Date of Evaluation: 09/14/17 Time of Evaluation: 10:00 - Subjective Subjective: Complains of being tired. Objective - Vital Signs/Intake and Output Vital Signs (last 24 hours): Temp Pulse Resp BP Pulse Ox 99.3 F 79 20 156/71 H 97 09/14/17 08:36 09/14/17 08:36 09/14/17 08:36 09/14/17 08:36 09/14/17 08:36 Intake and Output: 09/14/17 09/14/17 06:59 18:59 Intake Total 632 772 Output Total 550 Balance 82 772 - Medications Medications: Current Medications Al Hydrox/Mg Hydrox/Simethicone (Maalox 30 Ml) 30 ml PO Q4 PRN PRN Reason: heartburn Last Admin: 09/11/17 18:11 Dose: 30 ml Aspirin (Ecotrin) 81 mg PO DAILY [facility] Last Admin: 09/14/17 10:30 Dose: 81 mg Calcitriol (Rocaltrol) 0.25 mcg PO DAILY [facility] Last Admin: 09/14/17 10:28 Dose: 0.25 mcg Dronabinol (Marinol) 5 mg PO BID [facility] Last Admin: 09/14/17 10:39 Dose: 5 mg Enoxaparin Sodium (Lovenox) 40 mg SC DAILY [facility] Last Admin: 09/14/17 10:32 Dose: Not Given Fluconazole (Diflucan) 100 mg PO DAILY [facility] Stop: 09/16/17 23:59 Last Admin: 09/14/17 10:32 Dose: 100 mg Gabapentin (Neurontin) 300 mg PO BID [facility] Last Admin: 09/14/17 10:31 Dose: 300 mg Piperacillin Sod/Tazobactam Sod (Zosyn 3.375 Gm Iv Premix) 3.375 gm in 50 mls @ 100 mls/hr IVPB Q6H [facility] Last Admin: 09/14/17 07:57 Dose: 100 mls/hr Albumin Human (Albumin Human 25% (12.5 Gm/50 Ml)) 50 mls @ 50 mls/hr IV Q8 [facility] Last Admin: 09/14/17 05:08 Dose: 50 mls/hr Multivitamins/Vitamin C 10 ml/Chromium/Copper/Manganese/Zinc 1 ml/ Amino Acids 1,011 mls @ 42 mls/hr IV .Q24H [facility] Stop: 09/14/17 17:59 Last Admin: 09/13/17 18:11 Dose: 42 mls/hr Multivitamins/Vitamin C 10 ml/Chromium/Copper/Manganese/Zinc 1 ml/ Amino Acids 1,011 mls @ 42 mls/hr IV .Q24H [facility] Stop: 09/15/17 17:59 Lorazepam (Ativan) 1 mg IVP ONCE PRN PRN Reason: Agitation Last Admin: 09/07/17 13:55 Dose: 1 mg Morphine Sulfate (Morphine) 4 mg IVP Q4 PRN PRN Reason: Pain, moderate (4-7) Last Admin: 09/14/17 11:55 Dose: 4 mg Ondansetron HCl (Zofran Tab) 4 mg PO Q8 PRN PRN Reason: nausea Pantoprazole Sodium (Protonix Ec Tab) 40 mg PO DAILY [facility] Last Admin: 09/14/17 10:29 Dose: 40 mg Potassium Chloride (K-Dur 20 Meq Er Tab) 40 meq PO BRK [facility] Last Admin: 09/14/17 07:58 Dose: 40 meq Vitamin A (Vitamin A & D Oint Ud Foilpak) 1 ea TOP DAILY [facility] Last Admin: 09/14/17 10:33 Dose: 1 ea - Labs Labs: 09/14/17 06:37 09/14/17 06:37 PT 16.1 SECONDS (9.7-12.2) H 09/04/17 14:19 INR 1.4 09/04/17 14:19 APTT 32 SECONDS (21-34) 09/04/17 14:19 - Constitutional Appears: Chronically Ill - Head Exam Head Exam: ATRAUMATIC, NORMAL INSPECTION, NORMOCEPHALIC - Eye Exam Eye Exam: EOMI, Normal appearance, PERRL Pupil Exam: NORMAL ACCOMODATION, PERRL - ENT Exam ENT Exam: Mucous Membranes Dry, Normal Exam - Neck Exam Neck Exam: Normal Inspection - Respiratory Exam Respiratory Exam: Decreased Breath Sounds, NORMAL BREATHING PATTERN - Cardiovascular Exam Cardiovascular Exam: Tachycardia - GI/Abdominal Exam GI & Abdominal Exam: Distended, Firm, Guarding - Rectal Exam Rectal Exam: Deferred - Extremities Exam Extremities Exam: Pedal Edema - Neurological Exam Neurological Exam: Alert, Oriented x3 Neuro motor strength exam: Left Upper Extremity: 2/1, Right Upper Extremity: 2/1 , Left Lower Extremity: 11/15, Right Lower Extremity: 11/15 - Psychiatric Exam Psychiatric exam: Normal Affect, Normal Mood - Skin Skin Exam: Dry, Intact, Normal Color, Warm Assessment and Plan - Assessment and Plan (Free Text) Assessment: Patient seen and examined in the bed, looking chronically ill, and in mild distress due to abdominal pain. I was called by Pat [employer] Tech with updates on suggested Hospice care by the PMD . Apparently, patient's daughter had questions regarding hospice and I met with her at bed side. Patient complains of abdominal pain. Abdomen is hardly distended and rigid. Patient does not tolerate PO intake, the PPN is on. Breathing is shallow. Lips are dry. In presence of patient, her daughter Edwige, the grand son and Yuniel from [facility] I reviewed patient's clinical condition. Patient admits to be feeling tired and stated being fully aware of her diagnosis . Patient reports feeling she had a little time left to live. Trying to use very gentle words, but still be correct, I suggested that zt this stage of patient's life, when cure is not expected, the best we could do for the patient was to offer comfort measures. Daughter and patient agreed. The concern was patient's intolerance of PO intake. If admitted under hospice, than patient would not be given PPN any longer what would speed up her . I was very clear explaining this to patient and the family. The daughter and the grandson cried, while patient was giving them reassurance of how much they were loved and made her proud. I offered some privacy for the family, pulled over the curtain, offered chairs and tissues and called Playback Operator Ana for spiritual support as family requested. Daughter Edwige asked for more time before her and her mother decide on the next step in care, as she was waiting to talk to her brother as well. I shared this with Doctor Bharat Del Cid. Impression * This is a very sick patient and making decision on goals of care is very painfull and difficult for the family, more than for the patient * Patient is aware of her cancer diagnosis and states " was tired and ready to go" * Patient has approached the end of her life * Comfort care discussed * The concern is PO intolerance and cessation of PPN if patient goes under hospice care * There is psychosocial distress and need for spiritual support Suggestions * We will need to accomodate patient's and family's wishes in best possible way we can * I wish patient and the family decide upon hospice care, as any other level of care would just prolong patient's dying
[2017-09-14] MEDS ORDERED: PPN #4 IV ONE (18:00)
--- NOTE | 2017-09-14 19:59 | CP.PCM.PN ---
Subjective - Date & Time of Evaluation Date of Evaluation: 09/14/17 Time of Evaluation: 10:40 - Subjective Subjective: clinically same Objective - Vital Signs/Intake and Output Vital Signs (last 24 hours): Temp Pulse Resp BP Pulse Ox 99.4 F 105 H 20 124/82 99 09/14/17 15:45 09/14/17 16:00 09/14/17 15:45 09/14/17 15:45 09/14/17 15:45 Intake and Output: 09/14/17 09/15/17 18:59 06:59 Intake Total 1518 Output Total 1400 Balance 118 - Medications Medications: Current Medications Al Hydrox/Mg Hydrox/Simethicone (Maalox 30 Ml) 30 ml PO Q4 PRN PRN Reason: heartburn Last Admin: 09/11/17 18:11 Dose: 30 ml Aspirin (Ecotrin) 81 mg PO DAILY [facility] Last Admin: 09/14/17 10:30 Dose: 81 mg Calcitriol (Rocaltrol) 0.25 mcg PO DAILY [facility] Last Admin: 09/14/17 10:28 Dose: 0.25 mcg Dronabinol (Marinol) 5 mg PO BID [facility] Last Admin: 09/14/17 18:42 Dose: 5 mg Enoxaparin Sodium (Lovenox) 40 mg SC DAILY [facility] Last Admin: 09/14/17 10:32 Dose: Not Given Fluconazole (Diflucan) 100 mg PO DAILY [facility] Stop: 09/16/17 23:59 Last Admin: 09/14/17 10:32 Dose: 100 mg Gabapentin (Neurontin) 300 mg PO BID [facility] Last Admin: 09/14/17 18:42 Dose: 300 mg Piperacillin Sod/Tazobactam Sod (Zosyn 3.375 Gm Iv Premix) 3.375 gm in 50 mls @ 100 mls/hr IVPB Q6H [facility] Last Admin: 09/14/17 19:08 Dose: 100 mls/hr Albumin Human (Albumin Human 25% (12.5 Gm/50 Ml)) 50 mls @ 50 mls/hr IV Q8 [facility] Last Admin: 09/14/17 14:18 Dose: 50 mls/hr Multivitamins/Vitamin C 10 ml/Chromium/Copper/Manganese/Zinc 1 ml/ Amino Acids 1,011 mls @ 42 mls/hr IV .Q24H [facility] Stop: 09/15/17 17:59 Last Admin: 09/14/17 18:43 Dose: 42 mls/hr Lorazepam (Ativan) 1 mg IVP ONCE PRN PRN Reason: Agitation Last Admin: 09/07/17 13:55 Dose: 1 mg Morphine Sulfate (Morphine) 4 mg IVP Q4 PRN PRN Reason: Pain, moderate (4-7) Last Admin: 09/14/17 19:04 Dose: 4 mg Ondansetron HCl (Zofran Tab) 4 mg PO Q8 PRN PRN Reason: nausea Pantoprazole Sodium (Protonix Ec Tab) 40 mg PO DAILY [facility] Last Admin: 09/14/17 10:29 Dose: 40 mg Potassium Chloride (K-Dur 20 Meq Er Tab) 40 meq PO BRK [facility] Last Admin: 09/14/17 07:58 Dose: 40 meq Vitamin A (Vitamin A & D Oint Ud Foilpak) 1 ea TOP DAILY [facility] Last Admin: 09/14/17 10:33 Dose: 1 ea - Labs Labs: 09/14/17 06:37 09/14/17 06:37 PT 16.1 SECONDS (9.7-12.2) H 09/04/17 14:19 INR 1.4 09/04/17 14:19 APTT 32 SECONDS (21-34) 09/04/17 14:19 - Constitutional Appears: Well - Head Exam Head Exam: ATRAUMATIC, NORMAL INSPECTION, NORMOCEPHALIC - Eye Exam Eye Exam: EOMI, Normal appearance, PERRL Pupil Exam: NORMAL ACCOMODATION, PERRL - ENT Exam ENT Exam: Mucous Membranes Moist, Normal Exam - Neck Exam Neck Exam: Full ROM, Normal Inspection. 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
--- NOTE | 2017-09-14 22:22 | CP.PCM.PN ---
Subjective - Date & Time of Evaluation Date of Evaluation: 09/14/17 Time of Evaluation: 10:00 - Subjective Subjective: Appears fatigued Objective - Vital Signs/Intake and Output Vital Signs (last 24 hours): Temp Pulse Resp BP Pulse Ox 99.4 F 105 H 20 124/82 99 09/14/17 15:45 09/14/17 16:00 09/14/17 15:45 09/14/17 15:45 09/14/17 15:45 Intake and Output: 09/14/17 09/15/17 18:59 06:59 Intake Total 1518 Output Total 1400 Balance 118 - Medications Medications: Current Medications Al Hydrox/Mg Hydrox/Simethicone (Maalox 30 Ml) 30 ml PO Q4 PRN PRN Reason: heartburn Last Admin: 09/11/17 18:11 Dose: 30 ml Aspirin (Ecotrin) 81 mg PO DAILY [facility] Last Admin: 09/14/17 10:30 Dose: 81 mg Calcitriol (Rocaltrol) 0.25 mcg PO DAILY [facility] Last Admin: 09/14/17 10:28 Dose: 0.25 mcg Dronabinol (Marinol) 5 mg PO BID [facility] Last Admin: 09/14/17 18:42 Dose: 5 mg Enoxaparin Sodium (Lovenox) 40 mg SC DAILY [facility] Last Admin: 09/14/17 10:32 Dose: Not Given Fluconazole (Diflucan) 100 mg PO DAILY [facility] Stop: 09/16/17 23:59 Last Admin: 09/14/17 10:32 Dose: 100 mg Gabapentin (Neurontin) 300 mg PO BID [facility] Last Admin: 09/14/17 18:42 Dose: 300 mg Piperacillin Sod/Tazobactam Sod (Zosyn 3.375 Gm Iv Premix) 3.375 gm in 50 mls @ 100 mls/hr IVPB Q6H [facility] Last Admin: 09/14/17 19:08 Dose: 100 mls/hr Albumin Human (Albumin Human 25% (12.5 Gm/50 Ml)) 50 mls @ 50 mls/hr IV Q8 [facility] Last Admin: 09/14/17 21:30 Dose: 50 mls/hr Multivitamins/Vitamin C 10 ml/Chromium/Copper/Manganese/Zinc 1 ml/ Amino Acids 1,011 mls @ 42 mls/hr IV .Q24H [facility] Stop: 09/15/17 17:59 Last Admin: 09/14/17 18:43 Dose: 42 mls/hr Lorazepam (Ativan) 1 mg IVP ONCE PRN PRN Reason: Agitation Last Admin: 09/07/17 13:55 Dose: 1 mg Morphine Sulfate (Morphine) 4 mg IVP Q4 PRN PRN Reason: Pain, moderate (4-7) Last Admin: 09/14/17 19:04 Dose: 4 mg Ondansetron HCl (Zofran Tab) 4 mg PO Q8 PRN PRN Reason: nausea Pantoprazole Sodium (Protonix Ec Tab) 40 mg PO DAILY [facility] Last Admin: 09/14/17 10:29 Dose: 40 mg Potassium Chloride (K-Dur 20 Meq Er Tab) 40 meq PO BRK [facility] Last Admin: 09/14/17 07:58 Dose: 40 meq Vitamin A (Vitamin A & D Oint Ud Foilpak) 1 ea TOP DAILY [facility] Last Admin: 09/14/17 10:33 Dose: 1 ea - Labs Labs: 09/14/17 06:37 09/14/17 06:37 PT 16.1 SECONDS (9.7-12.2) H 09/04/17 14:19 INR 1.4 09/04/17 14:19 APTT 32 SECONDS (21-34) 09/04/17 14:19 - Constitutional Appears: Cachectic - Head Exam Head Exam: ATRAUMATIC - Eye Exam Eye Exam: Normal appearance - ENT Exam ENT Exam: Mucous Membranes Dry - Respiratory Exam Respiratory Exam: NORMAL BREATHING PATTERN - Cardiovascular Exam Cardiovascular Exam: +S1, +S2 - GI/Abdominal Exam GI & Abdominal Exam: Normal Bowel Sounds Assessment and Plan (1) Anemia Assessment & Plan: chronic disease Status: Acute (2) Extraovarian primary peritoneal carcinoma Assessment & Plan: stage IV not a treatment candidate DNR/DNI hospice evaluation if family agreeable Status: Chronic
[2017-09-15] MEDS: Piperacill/Tazo 3.375gm in Dex 3.375 GM/50 ML BAG IVPB SCH ×4 (02:03→20:06)
[2017-09-15] MEDS: Morphine 4 MG/ML VIAL IVP PRN ×2 (05:10→12:26)
[2017-09-15] MEDS: Potassium Chloride 20 mEq ER Tab PO SCH (08:35)
[2017-09-15] MEDS: Enoxaparin 40 mg Syringe SC SCH (10:32)
[2017-09-15] MEDS: Vitamins A & D Oint UD Foilpak TOP SCH (10:34)
[2017-09-15] MEDS: Pantoprazole 40 mg EC Tab PO SCH (10:34)
[2017-09-15] MEDS ORDERED: Fat Emulsion 20% IV 500 ML IV ONE (18:00)
[2017-09-15] MEDS ORDERED: PPN #5 IV ONE (18:00)
--- NOTE | 2017-09-15 18:00 | CP.PCM.PN ---
Subjective - Date & Time of Evaluation Date of Evaluation: 09/15/17 Time of Evaluation: 17:00 - Subjective Subjective: No complaints. Family at bedside Pt and daughter requesting inpatient hospice and to continue IV nutrition. Objective - Vital Signs/Intake and Output Vital Signs (last 24 hours): Temp Pulse Resp BP Pulse Ox 99.2 F 103 H 20 125/87 99 09/15/17 17:21 09/15/17 17:21 09/15/17 17:21 09/15/17 17:21 09/15/17 17:21 Intake and Output: 09/15/17 09/15/17 06:59 18:59 Intake Total 787 606 Output Total 1200 650 Balance -413 -44 - Medications Medications: Current Medications Al Hydrox/Mg Hydrox/Simethicone (Maalox 30 Ml) 30 ml PO Q4 PRN PRN Reason: heartburn Last Admin: 09/11/17 18:11 Dose: 30 ml Aspirin (Ecotrin) 81 mg PO DAILY [facility] Last Admin: 09/15/17 10:31 Dose: 81 mg Calcitriol (Rocaltrol) 0.25 mcg PO DAILY [facility] Last Admin: 09/15/17 10:34 Dose: 0.25 mcg Dronabinol (Marinol) 5 mg PO BID [facility] Last Admin: 09/15/17 17:39 Dose: 5 mg Enoxaparin Sodium (Lovenox) 40 mg SC DAILY [facility] Last Admin: 09/15/17 10:32 Dose: 40 mg Fluconazole (Diflucan) 100 mg PO DAILY [facility] Stop: 09/16/17 23:59 Last Admin: 09/15/17 10:31 Dose: 100 mg Gabapentin (Neurontin) 300 mg PO BID [facility] Last Admin: 09/15/17 17:39 Dose: 300 mg Piperacillin Sod/Tazobactam Sod (Zosyn 3.375 Gm Iv Premix) 3.375 gm in 50 mls @ 100 mls/hr IVPB Q6H [facility] Last Admin: 09/15/17 13:36 Dose: 100 mls/hr Albumin Human (Albumin Human 25% (12.5 Gm/50 Ml)) 50 mls @ 50 mls/hr IV Q8 [facility] Last Admin: 09/15/17 13:39 Dose: 50 mls/hr Multivitamins/Vitamin C 10 ml/Chromium/Copper/Manganese/Zinc 1 ml/ Amino Acids 1,011 mls @ 42 mls/hr IV .Q24H [facility] Stop: 09/15/17 17:59 Last Admin: 09/14/17 18:43 Dose: 42 mls/hr Multivitamins/Vitamin C 10 ml/Chromium/Copper/Manganese/Zinc 1 ml/ Amino Acids 1,011 mls @ 42 mls/hr IV .Q24H [facility] Stop: 09/16/17 17:59 Fat Emulsion Intravenous (Intralipid 20%) 500 mls @ 50 mls/hr IV 1800 [facility] Stop: 09/16/17 03:59 Lorazepam (Ativan) 1 mg IVP ONCE PRN PRN Reason: Agitation Last Admin: 09/07/17 13:55 Dose: 1 mg Morphine Sulfate (Morphine) 4 mg IVP Q4 PRN PRN Reason: Pain, moderate (4-7) Last Admin: 09/15/17 12:26 Dose: 4 mg Ondansetron HCl (Zofran Tab) 4 mg PO Q8 PRN PRN Reason: nausea Pantoprazole Sodium (Protonix Ec Tab) 40 mg PO DAILY [facility] Last Admin: 09/15/17 10:34 Dose: 40 mg Potassium Chloride (K-Dur 20 Meq Er Tab) 40 meq PO BRK [facility] Last Admin: 09/15/17 08:35 Dose: 40 meq Vitamin A (Vitamin A & D Oint Ud Foilpak) 1 ea TOP DAILY [facility] Last Admin: 09/15/17 10:34 Dose: 1 ea - Labs Labs: 09/14/17 06:37 09/14/17 06:37 PT 16.1 SECONDS (9.7-12.2) H 09/04/17 14:19 INR 1.4 09/04/17 14:19 APTT 32 SECONDS (21-34) 09/04/17 14:19 - Constitutional Appears: Cachectic - Head Exam Head Exam: ATRAUMATIC - Eye Exam Eye Exam: Normal appearance - ENT Exam ENT Exam: Mucous Membranes Dry - Respiratory Exam Respiratory Exam: NORMAL BREATHING PATTERN - Cardiovascular Exam Cardiovascular Exam: +S1, +S2 - GI/Abdominal Exam GI & Abdominal Exam: Normal Bowel Sounds Assessment and Plan (1) Anemia Status: Acute (2) Extraovarian primary peritoneal carcinoma Status: Chronic
--- NOTE | 2017-09-15 18:32 | CP.PCM.PN ---
Subjective - Date & Time of Evaluation Date of Evaluation: 09/15/17 Time of Evaluation: 09:20 - Subjective Subjective: clinically same Objective - Vital Signs/Intake and Output Vital Signs (last 24 hours): Temp Pulse Resp BP Pulse Ox 99.2 F 103 H 20 125/87 99 09/15/17 17:21 09/15/17 17:21 09/15/17 17:21 09/15/17 17:21 09/15/17 17:21 Intake and Output: 09/15/17 09/15/17 06:59 18:59 Intake Total 787 606 Output Total 1200 650 Balance -413 -44 - Medications Medications: Current Medications Al Hydrox/Mg Hydrox/Simethicone (Maalox 30 Ml) 30 ml PO Q4 PRN PRN Reason: heartburn Last Admin: 09/11/17 18:11 Dose: 30 ml Aspirin (Ecotrin) 81 mg PO DAILY [facility] Last Admin: 09/15/17 10:31 Dose: 81 mg Calcitriol (Rocaltrol) 0.25 mcg PO DAILY [facility] Last Admin: 09/15/17 10:34 Dose: 0.25 mcg Dronabinol (Marinol) 5 mg PO BID [facility] Last Admin: 09/15/17 17:39 Dose: 5 mg Enoxaparin Sodium (Lovenox) 40 mg SC DAILY [facility] Last Admin: 09/15/17 10:32 Dose: 40 mg Fluconazole (Diflucan) 100 mg PO DAILY [facility] Stop: 09/16/17 23:59 Last Admin: 09/15/17 10:31 Dose: 100 mg Gabapentin (Neurontin) 300 mg PO BID [facility] Last Admin: 09/15/17 17:39 Dose: 300 mg Piperacillin Sod/Tazobactam Sod (Zosyn 3.375 Gm Iv Premix) 3.375 gm in 50 mls @ 100 mls/hr IVPB Q6H [facility] Last Admin: 09/15/17 13:36 Dose: 100 mls/hr Albumin Human (Albumin Human 25% (12.5 Gm/50 Ml)) 50 mls @ 50 mls/hr IV Q8 [facility] Last Admin: 09/15/17 13:39 Dose: 50 mls/hr Multivitamins/Vitamin C 10 ml/Chromium/Copper/Manganese/Zinc 1 ml/ Amino Acids 1,011 mls @ 42 mls/hr IV .Q24H ONE Stop: 09/16/17 17:59 Last Admin: 09/15/17 18:05 Dose: 42 mls/hr Fat Emulsion Intravenous (Intralipid 20%) 500 mls @ 50 mls/hr IV 1800 ONE Stop: 09/16/17 03:59 Last Admin: 09/15/17 18:05 Dose: 50 mls/hr Lorazepam (Ativan) 1 mg IVP ONCE PRN PRN Reason: Agitation Last Admin: 09/07/17 13:55 Dose: 1 mg Morphine Sulfate (Morphine) 4 mg IVP Q4 PRN PRN Reason: Pain, moderate (4-7) Last Admin: 09/15/17 12:26 Dose: 4 mg Ondansetron HCl (Zofran Tab) 4 mg PO Q8 PRN PRN Reason: nausea Pantoprazole Sodium (Protonix Ec Tab) 40 mg PO DAILY [facility] Last Admin: 09/15/17 10:34 Dose: 40 mg Potassium Chloride (K-Dur 20 Meq Er Tab) 40 meq PO BRK [facility] Last Admin: 09/15/17 08:35 Dose: 40 meq Vitamin A (Vitamin A & D Oint Ud Foilpak) 1 ea TOP DAILY [facility] Last Admin: 09/15/17 10:34 Dose: 1 ea - Labs Labs: 09/14/17 06:37 09/14/17 06:37 PT 16.1 SECONDS (9.7-12.2) H 09/04/17 14:19 INR 1.4 09/04/17 14:19 APTT 32 SECONDS (21-34) 09/04/17 14:19 Assessment and Plan (1) Altered mental status Status: Acute (2) Anemia Status: Acute (3) Coagulopathy Status: Acute (4) Extraovarian primary peritoneal carcinoma Status: Chronic (5) Leukocytosis Status: Acute (6) Pneumonia Status: Acute (7) Sepsis Status: Acute
--- NOTE | 2017-09-16 01:20 | CP.PCM.PN ---
Subjective - Date & Time of Evaluation Date of Evaluation: 09/15/17 Time of Evaluation: 09:30 - Subjective Subjective: Progress note. Dr. Reeder Pt seen and examined at bedside. No acute events overnight. Resting. No acute distress. No adverse events overnight reported by nursing staff. Objective - Vital Signs/Intake and Output Vital Signs (last 24 hours): Temp Pulse Resp BP Pulse Ox 99.2 F 103 H 20 125/87 99 09/15/17 17:21 09/15/17 17:21 09/15/17 17:21 09/15/17 17:21 09/15/17 17:21 Intake and Output: 09/15/17 09/16/17 18:59 06:59 Intake Total 606 436 Output Total 650 295 Balance -44 141 - Medications Medications: Current Medications Al Hydrox/Mg Hydrox/Simethicone (Maalox 30 Ml) 30 ml PO Q4 PRN PRN Reason: heartburn Last Admin: 09/11/17 18:11 Dose: 30 ml Aspirin (Ecotrin) 81 mg PO DAILY [facility] Last Admin: 09/15/17 10:31 Dose: 81 mg Calcitriol (Rocaltrol) 0.25 mcg PO DAILY [facility] Last Admin: 09/15/17 10:34 Dose: 0.25 mcg Dronabinol (Marinol) 5 mg PO BID [facility] Last Admin: 09/15/17 17:39 Dose: 5 mg Enoxaparin Sodium (Lovenox) 40 mg SC DAILY [facility] Last Admin: 09/15/17 10:32 Dose: 40 mg Fluconazole (Diflucan) 100 mg PO DAILY [facility] Stop: 09/16/17 23:59 Last Admin: 09/15/17 10:31 Dose: 100 mg Gabapentin (Neurontin) 300 mg PO BID [facility] Last Admin: 09/15/17 17:39 Dose: 300 mg Piperacillin Sod/Tazobactam Sod (Zosyn 3.375 Gm Iv Premix) 3.375 gm in 50 mls @ 100 mls/hr IVPB Q6H [facility] Last Admin: 09/15/17 20:06 Dose: 100 mls/hr Albumin Human (Albumin Human 25% (12.5 Gm/50 Ml)) 50 mls @ 50 mls/hr IV Q8 [facility] Last Admin: 09/15/17 22:17 Dose: 50 mls/hr Multivitamins/Vitamin C 10 ml/Chromium/Copper/Manganese/Zinc 1 ml/ Amino Acids 1,011 mls @ 42 mls/hr IV .Q24H [facility] Stop: 09/16/17 17:59 Last Admin: 09/15/17 18:05 Dose: 42 mls/hr Fat Emulsion Intravenous (Intralipid 20%) 500 mls @ 50 mls/hr IV 1800 [facility] Stop: 09/16/17 03:59 Last Admin: 09/15/17 18:05 Dose: 50 mls/hr Lorazepam (Ativan) 1 mg IVP ONCE PRN PRN Reason: Agitation Last Admin: 09/07/17 13:55 Dose: 1 mg Morphine Sulfate (Morphine) 4 mg IVP Q4 PRN PRN Reason: Pain, moderate (4-7) Last Admin: 09/15/17 12:26 Dose: 4 mg Ondansetron HCl (Zofran Tab) 4 mg PO Q8 PRN PRN Reason: nausea Pantoprazole Sodium (Protonix Ec Tab) 40 mg PO DAILY [facility] Last Admin: 09/15/17 10:34 Dose: 40 mg Potassium Chloride (K-Dur 20 Meq Er Tab) 40 meq PO BRK [facility] Last Admin: 09/15/17 08:35 Dose: 40 meq Vitamin A (Vitamin A & D Oint Ud Foilpak) 1 ea TOP DAILY [facility] Last Admin: 09/15/17 10:34 Dose: 1 ea - Labs Labs: 09/14/17 06:37 09/14/17 06:37 PT 16.1 SECONDS (9.7-12.2) H 09/04/17 14:19 INR 1.4 09/04/17 14:19 APTT 32 SECONDS (21-34) 09/04/17 14:19 - Constitutional Appears: Non-toxic, No Acute Distress, Chronically Ill - Head Exam Head Exam: ATRAUMATIC, NORMAL INSPECTION, NORMOCEPHALIC - ENT Exam ENT Exam: Mucous Membranes Moist - Respiratory Exam Respiratory Exam: NORMAL BREATHING PATTERN. absent: Accessory Muscle Use, Respiratory Distress - GI/Abdominal Exam GI & Abdominal Exam: Soft. absent: Guarding, Rigid Additional comments: midline wound vac in place, to good suction, no air leaks. 250cc total output - Extremities Exam Extremities Exam: Normal Inspection. absent: Calf Tenderness Assessment and Plan - Assessment and Plan (Free Text) Assessment: 62F w/ hx of peritoneal cancer. Delayed abdominal wound closure with wound vac. - Wound vac in place. Continue to suction - Continue medical management as per primary - f/u family discussions w/Palliative care Further recs as per Dr. Varinder Marquez PGY1 surgery pager: [phone]
[2017-09-16] MEDS: Piperacill/Tazo 3.375gm in Dex 3.375 GM/50 ML BAG IVPB SCH ×4 (02:15→20:16)
[2017-09-16] MEDS: Morphine 4 MG/ML VIAL IVP PRN ×3 (02:42→17:23)
[2017-09-16] MEDS: Potassium Chloride 20 mEq ER Tab PO SCH (07:56)
[2017-09-16] MEDS: Enoxaparin 40 mg Syringe SC SCH (10:00)
[2017-09-16] MEDS: Vitamins A & D Oint UD Foilpak TOP SCH (10:31)
[2017-09-16] MEDS: Pantoprazole 40 mg EC Tab PO SCH (10:32)
--- NOTE | 2017-09-16 17:04 | CP.PCM.PN ---
Subjective - Date & Time of Evaluation Date of Evaluation: 09/16/17 Time of Evaluation: 09:20 - Subjective Subjective: clinically same Objective - Vital Signs/Intake and Output Vital Signs (last 24 hours): Temp Pulse Resp BP Pulse Ox 99.2 F 102 H 18 130/79 98 09/16/17 08:00 09/16/17 08:00 09/16/17 08:00 09/16/17 08:00 09/16/17 08:00 Intake and Output: 09/16/17 09/16/17 06:59 18:59 Intake Total 872 Output Total 695 Balance 177 - Medications Medications: Current Medications Al Hydrox/Mg Hydrox/Simethicone (Maalox 30 Ml) 30 ml PO Q4 PRN PRN Reason: heartburn Last Admin: 09/11/17 18:11 Dose: 30 ml Aspirin (Ecotrin) 81 mg PO DAILY [facility] Last Admin: 09/16/17 10:31 Dose: 81 mg Calcitriol (Rocaltrol) 0.25 mcg PO DAILY [facility] Last Admin: 09/16/17 10:31 Dose: 0.25 mcg Dronabinol (Marinol) 5 mg PO BID [facility] Last Admin: 09/16/17 10:32 Dose: 5 mg Enoxaparin Sodium (Lovenox) 40 mg SC DAILY [facility] Last Admin: 09/15/17 10:32 Dose: 40 mg Fluconazole (Diflucan) 100 mg PO DAILY [facility] Stop: 09/16/17 23:59 Last Admin: 09/15/17 10:31 Dose: 100 mg Gabapentin (Neurontin) 300 mg PO BID [facility] Last Admin: 09/16/17 10:34 Dose: 300 mg Piperacillin Sod/Tazobactam Sod (Zosyn 3.375 Gm Iv Premix) 3.375 gm in 50 mls @ 100 mls/hr IVPB Q6H [facility] Last Admin: 09/16/17 13:57 Dose: 100 mls/hr Albumin Human (Albumin Human 25% (12.5 Gm/50 Ml)) 50 mls @ 50 mls/hr IV Q8 [facility] Last Admin: 09/16/17 13:58 Dose: 50 mls/hr Multivitamins/Vitamin C 10 ml/Chromium/Copper/Manganese/Zinc 1 ml/ Amino Acids 1,011 mls @ 42 mls/hr IV .Q24H [facility] Stop: 09/16/17 17:59 Last Admin: 09/15/17 18:05 Dose: 42 mls/hr Chromium/Copper/Manganese/Zinc (1 ml/ Amino Acids) 1,001 mls @ 42 mls/hr IV .[id number] [facility] Stop: 09/17/17 17:49 Lorazepam (Ativan) 1 mg IVP ONCE PRN PRN Reason: Agitation Last Admin: 09/07/17 13:55 Dose: 1 mg Morphine Sulfate (Morphine) 4 mg IVP Q4 PRN PRN Reason: Pain, moderate (4-7) Last Admin: 09/16/17 10:11 Dose: 4 mg Ondansetron HCl (Zofran Tab) 4 mg PO Q8 PRN PRN Reason: nausea Pantoprazole Sodium (Protonix Ec Tab) 40 mg PO DAILY [facility] Last Admin: 09/16/17 10:32 Dose: 40 mg Potassium Chloride (K-Dur 20 Meq Er Tab) 40 meq PO BRK [facility] Last Admin: 09/16/17 07:56 Dose: 40 meq Vitamin A (Vitamin A & D Oint Ud Foilpak) 1 ea TOP DAILY [facility] Last Admin: 09/16/17 10:31 Dose: 1 ea - Labs Labs: 09/14/17 06:37 09/14/17 06:37 PT 16.1 SECONDS (9.7-12.2) H 09/04/17 14:19 INR 1.4 09/04/17 14:19 APTT 32 SECONDS (21-34) 09/04/17 14:19 Assessment and Plan (1) Altered mental status Status: Acute (2) Anemia Status: Acute (3) Coagulopathy Status: Acute (4) Extraovarian primary peritoneal carcinoma Status: Chronic (5) Leukocytosis Status: Acute (6) Pneumonia Status: Acute (7) Sepsis Status: Acute
[2017-09-16] MEDS ORDERED: PPN #6 IV ONE (18:00)
[2017-09-17] MEDS: Piperacill/Tazo 3.375gm in Dex 3.375 GM/50 ML BAG IVPB SCH ×4 (01:52→22:58)
[2017-09-17] MEDS: Morphine 4 MG/ML VIAL IVP PRN ×3 (02:03→18:23)
[2017-09-17 06:39] LABS: BASO # 0.1 K/uL (0.0-0.2); BASO % 0.6 % (0.0-2.0); EOS # 0.1 K/uL (0.0-0.7); EOS % 0.7 % (0.0-4.0); HEMATOCRIT 17.3 % (34.0-47.0); LYMPH # 0.9 K/uL (1.0-4.3); LYMPH % 6.2 % (20.0-40.0); MEAN CELL VOLUME 92.7 fL (81.0-99.0); MEAN CORPUSCULAR HEMOGLOBIN 30.5 pg (27.0-31.0); MEAN CORPUSCULAR HGB CONC 32.9 g/dL (33.0-37.0); MEAN PLATELET VOLUME 8.9 fL (7.2-11.7); MONO # 1.3 K/uL (0.0-0.8); MONO % 9.7 % (0.0-10.0); NRBC % 0.1 % (0.0-2.0); PLATELET COUNT 159 K/uL (130-400); RED CELL DISTRIBUTION WIDTH 18.6 % (11.5-14.5); WHITE BLOOD COUNT 13.8 K/uL (4.8-10.8)
[2017-09-17 06:48] LABS: GFR AFRICAN-AMERICAN > 60
[2017-09-17 06:49] LABS: ALB/GLOB RATIO 0.8 (1.0-2.1); ALKALINE PHOSPHATASE 72 U/L (38-126); ALT/SGPT 28 U/L (9-52); AST/SGOT 37 U/L (14-36); BILIRUBIN,TOTAL 1.3 mg/dL (0.2-1.3); BLOOD UREA NITROGEN 14 mg/dL (7-17); CALCIUM 7.8 mg/dl (8.6-10.4); CARBON DIOXIDE 24 mmol/L (22-30); CHLORIDE 99 mmol/L (98-107); GLUCOSE,RANDOM 115 mg/dL (65-105); MAGNESIUM 1.4 mg/dL (1.6-2.3); PHOSPHOROUS 3.3 mg/dL (2.5-4.5); SODIUM 132 mmol/L (132-148); TOTAL PROTEIN 7.4 g/dL (6.3-8.3)
[2017-09-17 08:54] LABS: MYELOCYTE 1 % (0-0); NEUTROPHIL 86 % (50-75); TOTAL CELLS COUNTED 100
[2017-09-17] MEDS: Pantoprazole 40 mg EC Tab PO SCH (10:16)
[2017-09-17] MEDS: Potassium Chloride 20 mEq ER Tab PO SCH (10:16)
[2017-09-17] MEDS: Vitamins A & D Oint UD Foilpak TOP SCH (10:16)
[2017-09-17] MEDS: Enoxaparin 40 mg Syringe SC SCH (10:23)
--- NOTE | 2017-09-17 11:18 | CP.PCM.PN ---
Subjective - Date & Time of Evaluation Date of Evaluation: 09/17/17 Time of Evaluation: 11:16 - Subjective Subjective: HOUSE RESIDENT NOTE House doctor paged for critical value of hemoglobin of 5.7. Patient denies chest pain, dizziness, headache, palpitations. Pt DNR/DNI. Spoke with next of kin/POA on chart, Edwige (daughter), who consented verbally over phone, with two nursing signatures. A/P: Pt anemic, will transfuse 3 units of PRBCs, after type and screen/cross completed Objective - Vital Signs/Intake and Output Vital Signs (last 24 hours): Temp Pulse Resp BP Pulse Ox 98.5 F 108 H 18 122/75 100 09/17/17 07:45 09/17/17 07:45 09/17/17 07:45 09/17/17 07:45 09/17/17 07:45 Intake and Output: 09/17/17 09/17/17 06:59 18:59 Intake Total 556 Output Total 1450 Balance -894 - Medications Medications: Current Medications Al Hydrox/Mg Hydrox/Simethicone (Maalox 30 Ml) 30 ml PO Q4 PRN PRN Reason: heartburn Last Admin: 09/11/17 18:11 Dose: 30 ml Aspirin (Ecotrin) 81 mg PO DAILY [facility] Last Admin: 09/17/17 10:16 Dose: 81 mg Calcitriol (Rocaltrol) 0.25 mcg PO DAILY [facility] Last Admin: 09/17/17 10:16 Dose: 0.25 mcg Dronabinol (Marinol) 5 mg PO BID [facility] Last Admin: 09/17/17 10:16 Dose: 5 mg Enoxaparin Sodium (Lovenox) 40 mg SC DAILY [facility] Last Admin: 09/17/17 10:23 Dose: Not Given Gabapentin (Neurontin) 300 mg PO BID [facility] Last Admin: 09/17/17 10:22 Dose: 300 mg Piperacillin Sod/Tazobactam Sod (Zosyn 3.375 Gm Iv Premix) 3.375 gm in 50 mls @ 100 mls/hr IVPB Q6H [facility] Last Admin: 09/17/17 10:24 Dose: 100 mls/hr Albumin Human (Albumin Human 25% (12.5 Gm/50 Ml)) 50 mls @ 50 mls/hr IV Q8 [facility] Last Admin: 09/17/17 06:19 Dose: 50 mls/hr Chromium/Copper/Manganese/Zinc (1 ml/ Amino Acids) 1,001 mls @ 42 mls/hr IV .[id number] [facility] Stop: 09/17/17 17:49 Last Admin: 09/16/17 18:25 Dose: 42 mls/hr Lorazepam (Ativan) 1 mg IVP ONCE PRN PRN Reason: Agitation Last Admin: 09/07/17 13:55 Dose: 1 mg Morphine Sulfate (Morphine) 4 mg IVP Q4 PRN PRN Reason: Pain, moderate (4-7) Last Admin: 09/17/17 11:06 Dose: 4 mg Ondansetron HCl (Zofran Tab) 4 mg PO Q8 PRN PRN Reason: nausea Pantoprazole Sodium (Protonix Ec Tab) 40 mg PO DAILY [facility] Last Admin: 09/17/17 10:16 Dose: 40 mg Potassium Chloride (K-Dur 20 Meq Er Tab) 40 meq PO BRK [facility] Last Admin: 09/17/17 10:16 Dose: 40 meq Vitamin A (Vitamin A & D Oint Ud Foilpak) 1 ea TOP DAILY [facility] Last Admin: 09/17/17 10:16 Dose: 1 ea - Labs Labs: 09/17/17 06:25 09/17/17 06:25 PT 16.1 SECONDS (9.7-12.2) H 09/04/17 14:19 INR 1.4 09/04/17 14:19 APTT 32 SECONDS (21-34) 09/04/17 14:19
[2017-09-17] MEDS ORDERED: PPN#7 IV ONE (18:00)
--- NOTE | 2017-09-17 19:39 | CP.PCM.PN ---
Subjective - Date & Time of Evaluation Date of Evaluation: 09/17/17 Time of Evaluation: 10:00 - Subjective Subjective: clinically same Objective - Vital Signs/Intake and Output Vital Signs (last 24 hours): Temp Pulse Resp BP Pulse Ox 100.2 F H 103 H 20 138/84 100 09/17/17 19:30 09/17/17 17:55 09/17/17 17:55 09/17/17 17:55 09/17/17 15:30 Intake and Output: 09/17/17 09/18/17 18:59 06:59 Intake Total 400 Balance 400 - Medications Medications: Current Medications Al Hydrox/Mg Hydrox/Simethicone (Maalox 30 Ml) 30 ml PO Q4 PRN PRN Reason: heartburn Last Admin: 09/11/17 18:11 Dose: 30 ml Aspirin (Ecotrin) 81 mg PO DAILY [facility] Last Admin: 09/17/17 10:16 Dose: 81 mg Calcitriol (Rocaltrol) 0.25 mcg PO DAILY [facility] Last Admin: 09/17/17 10:16 Dose: 0.25 mcg Dronabinol (Marinol) 5 mg PO BID [facility] Last Admin: 09/17/17 18:18 Dose: 5 mg Enoxaparin Sodium (Lovenox) 40 mg SC DAILY [facility] Last Admin: 09/17/17 10:23 Dose: Not Given Gabapentin (Neurontin) 300 mg PO BID [facility] Last Admin: 09/17/17 18:18 Dose: 300 mg Chromium/Copper/Manganese/Zinc 1 ml/ Multivitamins/Vitamin C 10 ml/ Parenteral Electrolytes 20 ml/ Amino Acids 1,031 mls @ 42 mls/hr IV .Q24H [facility] Stop: 09/18/17 17:59 Albumin Human (Albumin Human 25% (12.5 Gm/50 Ml)) 50 mls @ 100 mls/hr IV Q8 [facility] Lorazepam (Ativan) 1 mg IVP ONCE PRN PRN Reason: Agitation Last Admin: 09/07/17 13:55 Dose: 1 mg Morphine Sulfate (Morphine) 4 mg IVP Q4 PRN PRN Reason: Pain, moderate (4-7) Ondansetron HCl (Zofran Tab) 4 mg PO Q8 PRN PRN Reason: nausea Pantoprazole Sodium (Protonix Ec Tab) 40 mg PO DAILY [facility] Last Admin: 09/17/17 10:16 Dose: 40 mg Potassium Chloride (K-Dur 20 Meq Er Tab) 40 meq PO BRK [facility] Last Admin: 09/17/17 10:16 Dose: 40 meq Vitamin A (Vitamin A & D Oint Ud Foilpak) 1 ea TOP DAILY [facility] Last Admin: 09/17/17 10:16 Dose: 1 ea - Labs Labs: 09/17/17 06:25 09/17/17 06:25 PT 16.1 SECONDS (9.7-12.2) H 09/04/17 14:19 INR 1.4 09/04/17 14:19 APTT 32 SECONDS (21-34) 09/04/17 14:19 Assessment and Plan (1) Altered mental status Status: Acute (2) Anemia Status: Acute (3) Coagulopathy Status: Acute (4) Extraovarian primary peritoneal carcinoma Status: Chronic (5) Leukocytosis Status: Acute (6) Pneumonia Status: Acute (7) Sepsis Status: Acute
--- NOTE | 2017-09-17 22:35 | CP.PCM.PN ---
Subjective - Date & Time of Evaluation Date of Evaluation: 09/17/17 Time of Evaluation: 18:45 - Subjective Subjective: Appears comfortable, PRBC transfusion Pt and daughter agreeable to inpatient hospice with IV nutrition Objective - Vital Signs/Intake and Output Vital Signs (last 24 hours): Temp Pulse Resp BP Pulse Ox 98.9 F 103 H 20 120/78 100 09/17/17 21:35 09/17/17 21:35 09/17/17 21:35 09/17/17 21:35 09/17/17 15:30 Intake and Output: 09/17/17 09/18/17 18:59 06:59 Intake Total 400 0 Output Total 225 Balance 400 -225 - Medications Medications: Current Medications Al Hydrox/Mg Hydrox/Simethicone (Maalox 30 Ml) 30 ml PO Q4 PRN PRN Reason: heartburn Last Admin: 09/11/17 18:11 Dose: 30 ml Aspirin (Ecotrin) 81 mg PO DAILY [facility] Last Admin: 09/17/17 10:16 Dose: 81 mg Calcitriol (Rocaltrol) 0.25 mcg PO DAILY [facility] Last Admin: 09/17/17 10:16 Dose: 0.25 mcg Dronabinol (Marinol) 5 mg PO BID [facility] Last Admin: 09/17/17 18:18 Dose: 5 mg Enoxaparin Sodium (Lovenox) 40 mg SC DAILY [facility] Last Admin: 09/17/17 10:23 Dose: Not Given Gabapentin (Neurontin) 300 mg PO BID [facility] Last Admin: 09/17/17 18:18 Dose: 300 mg Chromium/Copper/Manganese/Zinc 1 ml/ Multivitamins/Vitamin C 10 ml/ Parenteral Electrolytes 20 ml/ Amino Acids 1,031 mls @ 42 mls/hr IV .Q24H [facility] Stop: 09/18/17 17:59 Albumin Human (Albumin Human 25% (12.5 Gm/50 Ml)) 50 mls @ 100 mls/hr IV Q8 [facility] Piperacillin Sod/Tazobactam Sod (Zosyn 3.375 Gm Iv Premix) 3.375 gm in 50 mls @ 100 mls/hr IVPB Q6H [facility] Lorazepam (Ativan) 1 mg IVP ONCE PRN PRN Reason: Agitation Last Admin: 09/07/17 13:55 Dose: 1 mg Morphine Sulfate (Morphine) 4 mg IVP Q4 PRN PRN Reason: Pain, moderate (4-7) Ondansetron HCl (Zofran Tab) 4 mg PO Q8 PRN PRN Reason: nausea Pantoprazole Sodium (Protonix Ec Tab) 40 mg PO DAILY [facility] Last Admin: 09/17/17 10:16 Dose: 40 mg Potassium Chloride (K-Dur 20 Meq Er Tab) 40 meq PO BRK [facility] Last Admin: 09/17/17 10:16 Dose: 40 meq Vitamin A (Vitamin A & D Oint Ud Foilpak) 1 ea TOP DAILY [facility] Last Admin: 09/17/17 10:16 Dose: 1 ea - Labs Labs: 09/17/17 06:25 09/17/17 06:25 PT 16.1 SECONDS (9.7-12.2) H 09/04/17 14:19 INR 1.4 09/04/17 14:19 APTT 32 SECONDS (21-34) 09/04/17 14:19 - Head Exam Head Exam: ATRAUMATIC - Eye Exam Eye Exam: Normal appearance - ENT Exam ENT Exam: Mucous Membranes Dry - Respiratory Exam Respiratory Exam: NORMAL BREATHING PATTERN - Cardiovascular Exam Cardiovascular Exam: +S1, +S2 - GI/Abdominal Exam GI & Abdominal Exam: Normal Bowel Sounds Assessment and Plan (1) Anemia Status: Acute (2) Extraovarian primary peritoneal carcinoma Status: Chronic
[2017-09-18] MEDS: Piperacill/Tazo 3.375gm in Dex 3.375 GM/50 ML BAG IVPB SCH ×4 (04:38→21:46)
[2017-09-18] MEDS: Morphine 4 MG/ML VIAL IVP PRN ×3 (06:13→16:08)
[2017-09-18 08:02] LABS: BASO % 0.3 % (0.0-2.0); EOS % 0.4 % (0.0-4.0); HEMATOCRIT 29.4 % (34.0-47.0); LYMPH # 0.6 K/uL (1.0-4.3); LYMPH % 4.2 % (20.0-40.0); MEAN CORPUSCULAR HEMOGLOBIN 29.3 pg (27.0-31.0); MEAN CORPUSCULAR HGB CONC 33.5 g/dL (33.0-37.0); MEAN PLATELET VOLUME 9.1 fL (7.2-11.7); MONO % 6.8 % (0.0-10.0); PLATELET COUNT 147 K/uL (130-400); RED CELL DISTRIBUTION WIDTH 15.3 % (11.5-14.5); WHITE BLOOD COUNT 14.2 K/uL (4.8-10.8)
[2017-09-18 08:09] LABS: MEAN CELL VOLUME 87.5 fL (81.0-99.0)
[2017-09-18] MEDS: Potassium Chloride 20 mEq ER Tab PO SCH (08:23)
[2017-09-18 08:31] LABS: ALKALINE PHOSPHATASE 78 U/L (38-126); ALT/SGPT 30 U/L (9-52); AST/SGOT 51 U/L (14-36); BILIRUBIN,TOTAL 1.8 mg/dL (0.2-1.3); BLOOD UREA NITROGEN 14 mg/dL (7-17); CALCIUM 8.2 mg/dl (8.6-10.4); CARBON DIOXIDE 21 mmol/L (22-30); CHLORIDE 103 mmol/L (98-107); GFR AFRICAN-AMERICAN > 60; GLUCOSE,RANDOM 103 mg/dL (65-105); MAGNESIUM 1.3 mg/dL (1.6-2.3); PHOSPHOROUS 3.1 mg/dL (2.5-4.5); SODIUM 135 mmol/L (132-148); TOTAL PROTEIN 6.5 g/dL (6.3-8.3)
[2017-09-18 09:26] LABS: NEUTROPHIL 84 % (50-75); TOTAL CELLS COUNTED 100
[2017-09-18] MEDS: Vitamins A & D Oint UD Foilpak TOP SCH (09:43)
[2017-09-18] MEDS: Enoxaparin 40 mg Syringe SC SCH (11:01)
[2017-09-18] MEDS: Pantoprazole 40 mg EC Tab PO SCH (11:02)
--- NOTE | 2017-09-18 17:40 | CP.PCM.PN ---
Subjective - Date & Time of Evaluation Date of Evaluation: 09/18/17 Time of Evaluation: 10:00 - Subjective Subjective: clinically same Objective - Vital Signs/Intake and Output Vital Signs (last 24 hours): Temp Pulse Resp BP Pulse Ox 98.1 F 102 H 18 129/81 97 09/18/17 15:57 09/18/17 15:57 09/18/17 15:57 09/18/17 15:57 09/18/17 15:57 Intake and Output: 09/18/17 09/18/17 06:59 18:59 Intake Total 1504 Output Total 500 Balance 1004 - Medications Medications: Current Medications Al Hydrox/Mg Hydrox/Simethicone (Maalox 30 Ml) 30 ml PO Q4 PRN PRN Reason: heartburn Last Admin: 09/11/17 18:11 Dose: 30 ml Aspirin (Ecotrin) 81 mg PO DAILY [facility] Last Admin: 09/18/17 11:01 Dose: Not Given Calcitriol (Rocaltrol) 0.25 mcg PO DAILY [facility] Last Admin: 09/18/17 11:02 Dose: Not Given Dronabinol (Marinol) 5 mg PO BID [facility] Last Admin: 09/18/17 17:36 Dose: Not Given Enoxaparin Sodium (Lovenox) 40 mg SC DAILY [facility] Last Admin: 09/18/17 11:01 Dose: Not Given Gabapentin (Neurontin) 300 mg PO BID [facility] Last Admin: 09/18/17 17:35 Dose: Not Given Chromium/Copper/Manganese/Zinc 1 ml/ Multivitamins/Vitamin C 10 ml/ Parenteral Electrolytes 20 ml/ Amino Acids 1,031 mls @ 42 mls/hr IV .Q24H [facility] Stop: 09/18/17 17:59 Last Admin: 09/17/17 18:30 Dose: 42 mls/hr Albumin Human (Albumin Human 25% (12.5 Gm/50 Ml)) 50 mls @ 100 mls/hr IV Q8 [facility] Last Admin: 09/18/17 14:19 Dose: 100 mls/hr Piperacillin Sod/Tazobactam Sod (Zosyn 3.375 Gm Iv Premix) 3.375 gm in 50 mls @ 100 mls/hr IVPB Q6H [facility] Last Admin: 09/18/17 16:09 Dose: 100 mls/hr Parenteral Electrolytes 20 ml/Chromium/Copper/Manganese/Zinc 1 ml/ Multivitamins /Vitamin C 10 ml/ Amino Acids 1,031 mls @ 42 mls/hr IV .Q24H [facility] Stop: 09/19/17 17:59 Morphine Sulfate (Morphine) 4 mg IVP Q3 [facility] Ondansetron HCl (Zofran Tab) 4 mg PO Q8 PRN PRN Reason: nausea Pantoprazole Sodium (Protonix Ec Tab) 40 mg PO DAILY [facility] Last Admin: 09/18/17 11:02 Dose: Not Given Potassium Chloride (K-Dur 20 Meq Er Tab) 40 meq PO BRK [facility] Last Admin: 09/18/17 08:23 Dose: Not Given Vitamin A (Vitamin A & D Oint Ud Foilpak) 1 ea TOP DAILY [facility] Last Admin: 09/18/17 09:43 Dose: 1 ea - Labs Labs: 09/18/17 07:52 09/18/17 07:52 PT 16.1 SECONDS (9.7-12.2) H 09/04/17 14:19 INR 1.4 09/04/17 14:19 APTT 32 SECONDS (21-34) 09/04/17 14:19 - Constitutional Appears: Well - Head Exam Head Exam: ATRAUMATIC, NORMAL INSPECTION, NORMOCEPHALIC - Eye Exam Eye Exam: EOMI, Normal appearance, PERRL Pupil Exam: NORMAL ACCOMODATION, PERRL - ENT Exam ENT Exam: Mucous Membranes Moist, Normal Exam - Neck Exam Neck Exam: Full ROM, Normal Inspection. 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
[2017-09-18] MEDS ORDERED: PPN #8 IV ONE (18:00)
--- NOTE | 2017-09-18 18:21 | CP.PCM.PN ---
Subjective - Date & Time of Evaluation Date of Evaluation: 09/18/17 Time of Evaluation: 14:45 - Subjective Subjective: Appears comofortable Wants inpatient hospice in the hospital Unable to receive TPN on hospice per social welfare research worker but okay to receive IV fluids Objective - Vital Signs/Intake and Output Vital Signs (last 24 hours): Temp Pulse Resp BP Pulse Ox 98.1 F 102 H 18 129/81 97 09/18/17 15:57 09/18/17 15:57 09/18/17 15:57 09/18/17 15:57 09/18/17 15:57 Intake and Output: 09/18/17 09/18/17 06:59 18:59 Intake Total 1504 Output Total 500 Balance 1004 - Medications Medications: Current Medications Al Hydrox/Mg Hydrox/Simethicone (Maalox 30 Ml) 30 ml PO Q4 PRN PRN Reason: heartburn Last Admin: 09/11/17 18:11 Dose: 30 ml Aspirin (Ecotrin) 81 mg PO DAILY [facility] Last Admin: 09/18/17 11:01 Dose: Not Given Calcitriol (Rocaltrol) 0.25 mcg PO DAILY [facility] Last Admin: 09/18/17 11:02 Dose: Not Given Dronabinol (Marinol) 5 mg PO BID [facility] Last Admin: 09/18/17 17:36 Dose: Not Given Enoxaparin Sodium (Lovenox) 40 mg SC DAILY [facility] Last Admin: 09/18/17 11:01 Dose: Not Given Gabapentin (Neurontin) 300 mg PO BID [facility] Last Admin: 09/18/17 17:35 Dose: Not Given Albumin Human (Albumin Human 25% (12.5 Gm/50 Ml)) 50 mls @ 100 mls/hr IV Q8 [facility] Last Admin: 09/18/17 14:19 Dose: 100 mls/hr Piperacillin Sod/Tazobactam Sod (Zosyn 3.375 Gm Iv Premix) 3.375 gm in 50 mls @ 100 mls/hr IVPB Q6H [facility] Last Admin: 09/18/17 16:09 Dose: 100 mls/hr Parenteral Electrolytes 20 ml/Chromium/Copper/Manganese/Zinc 1 ml/ Multivitamins /Vitamin C 10 ml/ Amino Acids 1,031 mls @ 42 mls/hr IV .Q24H ONE Stop: 09/19/17 17:59 Last Admin: 09/18/17 17:41 Dose: 42 mls/hr Morphine Sulfate (Morphine) 4 mg IVP Q3 [facility] Ondansetron HCl (Zofran Tab) 4 mg PO Q8 PRN PRN Reason: nausea Pantoprazole Sodium (Protonix Ec Tab) 40 mg PO DAILY [facility] Last Admin: 09/18/17 11:02 Dose: Not Given Potassium Chloride (K-Dur 20 Meq Er Tab) 40 meq PO BRK [facility] Last Admin: 09/18/17 08:23 Dose: Not Given Vitamin A (Vitamin A & D Oint Ud Foilpak) 1 ea TOP DAILY [facility] Last Admin: 09/18/17 09:43 Dose: 1 ea - Labs Labs: 09/18/17 07:52 09/18/17 07:52 PT 16.1 SECONDS (9.7-12.2) H 09/04/17 14:19 INR 1.4 09/04/17 14:19 APTT 32 SECONDS (21-34) 09/04/17 14:19 - Head Exam Head Exam: ATRAUMATIC - Eye Exam Eye Exam: Normal appearance - ENT Exam ENT Exam: Mucous Membranes Dry - Respiratory Exam Respiratory Exam: NORMAL BREATHING PATTERN - Cardiovascular Exam Cardiovascular Exam: +S1, +S2 - GI/Abdominal Exam GI & Abdominal Exam: Normal Bowel Sounds - Extremities Exam Extremities Exam: Normal Inspection Assessment and Plan (1) Anemia Assessment & Plan: chronic disease Status: Acute (2) Extraovarian primary peritoneal carcinoma Assessment & Plan: supportive care DNR/DNI Status: Chronic
[2017-09-18] MEDS: Morphine 4 MG/ML VIAL IVP SCH ×2 (19:24→21:45)
[2017-09-19] MEDS: Morphine 4 MG/ML VIAL IVP SCH ×8 (01:35→21:50)
[2017-09-19] MEDS: Piperacill/Tazo 3.375gm in Dex 3.375 GM/50 ML BAG IVPB SCH ×4 (04:14→21:49)
[2017-09-19] MEDS: Potassium Chloride 20 mEq ER Tab PO SCH (08:16)
[2017-09-19 08:25] LABS: BASO # 0.1 K/uL (0.0-0.2); BASO % 0.5 % (0.0-2.0); EOS # 0.1 K/uL (0.0-0.7); EOS % 0.8 % (0.0-4.0); HEMATOCRIT 25.5 % (34.0-47.0); LYMPH # 0.8 K/uL (1.0-4.3); LYMPH % 5.6 % (20.0-40.0); MEAN CELL VOLUME 87.8 fL (81.0-99.0); MEAN CORPUSCULAR HEMOGLOBIN 30.5 pg (27.0-31.0); MEAN CORPUSCULAR HGB CONC 34.8 g/dL (33.0-37.0); MEAN PLATELET VOLUME 8.9 fL (7.2-11.7); MONO # 1.1 K/uL (0.0-0.8); MONO % 8.2 % (0.0-10.0); PLATELET COUNT 153 K/uL (130-400); RED CELL DISTRIBUTION WIDTH 15.8 % (11.5-14.5); WHITE BLOOD COUNT 13.7 K/uL (4.8-10.8)
[2017-09-19 08:59] LABS: ALB/GLOB RATIO 0.8 (1.0-2.1); ALKALINE PHOSPHATASE 69 U/L (38-126); ALT/SGPT 32 U/L (9-52); AST/SGOT 33 U/L (14-36); BILIRUBIN,TOTAL 1.8 mg/dL (0.2-1.3); BLOOD UREA NITROGEN 16 mg/dL (7-17); CALCIUM 8.6 mg/dl (8.6-10.4); CARBON DIOXIDE 25 mmol/L (22-30); CHLORIDE 103 mmol/L (98-107); GFR AFRICAN-AMERICAN > 60; GLUCOSE,RANDOM 121 mg/dL (65-105); MAGNESIUM 1.4 mg/dL (1.6-2.3); PHOSPHOROUS 2.7 mg/dL (2.5-4.5); POTASSIUM 3.8 mmol/L (3.6-5.2); SODIUM 135 mmol/L (132-148); TOTAL PROTEIN 7.7 g/dL (6.3-8.3)
[2017-09-19] MEDS: Vitamins A & D Oint UD Foilpak TOP SCH (09:56)
[2017-09-19] MEDS: Pantoprazole 40 mg EC Tab PO SCH (09:57)
[2017-09-19 10:44] LABS: EOSINOPHIL 1 % (0-4); NEUTROPHIL 86 % (50-75); TOTAL CELLS COUNTED 100
[2017-09-19] MEDS ORDERED: PPN #9 IV ONE (18:00)
--- NOTE | 2017-09-19 19:30 | CP.PCM.PN ---
Subjective - Date & Time of Evaluation Date of Evaluation: 09/19/17 Time of Evaluation: 09:40 - Subjective Subjective: clinically same Objective - Vital Signs/Intake and Output Vital Signs (last 24 hours): Temp Pulse Resp BP Pulse Ox 98.9 F 104 H 20 151/90 H 97 09/19/17 15:55 09/19/17 15:55 09/19/17 15:55 09/19/17 15:55 09/19/17 15:55 Intake and Output: 09/19/17 09/20/17 18:59 06:59 Intake Total 911 Output Total 200 Balance 711 - Medications Medications: Current Medications Aspirin (Ecotrin) 81 mg PO DAILY [facility] Last Admin: 09/19/17 09:45 Dose: Not Given Calcitriol (Rocaltrol) 0.25 mcg PO DAILY [facility] Last Admin: 09/19/17 09:57 Dose: Not Given Dronabinol (Marinol) 5 mg PO BID [facility] Last Admin: 09/19/17 17:17 Dose: Not Given Albumin Human (Albumin Human 25% (12.5 Gm/50 Ml)) 50 mls @ 100 mls/hr IV Q8 [facility] Last Admin: 09/19/17 13:09 Dose: 100 mls/hr Piperacillin Sod/Tazobactam Sod (Zosyn 3.375 Gm Iv Premix) 3.375 gm in 50 mls @ 100 mls/hr IVPB Q6H [facility] Last Admin: 09/19/17 17:17 Dose: 100 mls/hr Parenteral Electrolytes 20 ml/Multivitamins/Vitamin C 10 ml / Chromium/Copper/ Manganese/Zinc 1 ml/ Amino Acids 1,031 mls @ 42 mls/hr IV .Q24H ONE Stop: 09/20/17 17:59 Last Admin: 09/19/17 17:45 Dose: 42 mls/hr Morphine Sulfate (Morphine) 4 mg IVP Q3 [facility] Last Admin: 09/19/17 19:03 Dose: 4 mg Potassium Chloride (K-Dur 20 Meq Er Tab) 40 meq PO BRK [facility] Last Admin: 09/19/17 08:16 Dose: Not Given Vitamin A (Vitamin A & D Oint Ud Foilpak) 1 ea TOP DAILY [facility] Last Admin: 09/19/17 09:56 Dose: 1 ea - Labs Labs: 09/19/17 08:14 09/19/17 08:14 PT 16.1 SECONDS (9.7-12.2) H 09/04/17 14:19 INR 1.4 09/04/17 14:19 APTT 32 SECONDS (21-34) 09/04/17 14:19 - Constitutional Appears: Well - Head Exam Head Exam: ATRAUMATIC, NORMAL INSPECTION, NORMOCEPHALIC - Eye Exam Eye Exam: EOMI, Normal appearance, PERRL Pupil Exam: NORMAL ACCOMODATION, PERRL - ENT Exam ENT Exam: Mucous Membranes Moist, Normal Exam - Neck Exam Neck Exam: Full ROM, Normal Inspection. 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
--- NOTE | 2017-09-19 21:58 | CP.PCM.PN ---
Subjective - Date & Time of Evaluation Date of Evaluation: 09/19/17 Time of Evaluation: 12:15 - Subjective Subjective: Appears comfortable Wants inpatient hospice in the hospital Unable to receive TPN on hospice per social worker masters but okay to receive IV fluids Objective - Vital Signs/Intake and Output Vital Signs (last 24 hours): Temp Pulse Resp BP Pulse Ox 98.9 F 104 H 20 151/90 H 97 09/19/17 15:55 09/19/17 15:55 09/19/17 15:55 09/19/17 15:55 09/19/17 15:55 Intake and Output: 09/19/17 09/20/17 18:59 06:59 Intake Total 911 Output Total 200 Balance 711 - Medications Medications: Current Medications Aspirin (Ecotrin) 81 mg PO DAILY [facility] Last Admin: 09/19/17 09:45 Dose: Not Given Calcitriol (Rocaltrol) 0.25 mcg PO DAILY [facility] Last Admin: 09/19/17 09:57 Dose: Not Given Dronabinol (Marinol) 5 mg PO BID [facility] Last Admin: 09/19/17 17:17 Dose: Not Given Albumin Human (Albumin Human 25% (12.5 Gm/50 Ml)) 50 mls @ 100 mls/hr IV Q8 [facility] Last Admin: 09/19/17 21:14 Dose: 100 mls/hr Piperacillin Sod/Tazobactam Sod (Zosyn 3.375 Gm Iv Premix) 3.375 gm in 50 mls @ 100 mls/hr IVPB Q6H [facility] Last Admin: 09/19/17 21:49 Dose: 100 mls/hr Parenteral Electrolytes 20 ml/Multivitamins/Vitamin C 10 ml / Chromium/Copper/ Manganese/Zinc 1 ml/ Amino Acids 1,031 mls @ 42 mls/hr IV .Q24H ONE Stop: 09/20/17 17:59 Last Admin: 09/19/17 17:45 Dose: 42 mls/hr Morphine Sulfate (Morphine) 4 mg IVP Q3 [facility] Last Admin: 09/19/17 21:50 Dose: 4 mg Potassium Chloride (K-Dur 20 Meq Er Tab) 40 meq PO BRK [facility] Last Admin: 09/19/17 08:16 Dose: Not Given Vitamin A (Vitamin A & D Oint Ud Foilpak) 1 ea TOP DAILY [facility] Last Admin: 09/19/17 09:56 Dose: 1 ea - Labs Labs: 09/19/17 08:14 09/19/17 08:14 PT 16.1 SECONDS (9.7-12.2) H 09/04/17 14:19 INR 1.4 09/04/17 14:19 APTT 32 SECONDS (21-34) 09/04/17 14:19 - Head Exam Head Exam: ATRAUMATIC - Eye Exam Eye Exam: Normal appearance - ENT Exam ENT Exam: Mucous Membranes Dry - Respiratory Exam Respiratory Exam: NORMAL BREATHING PATTERN - Cardiovascular Exam Cardiovascular Exam: +S1, +S2 - GI/Abdominal Exam GI & Abdominal Exam: Normal Bowel Sounds Assessment and Plan (1) Anemia Status: Acute (2) Extraovarian primary peritoneal carcinoma Status: Chronic
[2017-09-20] MEDS: Morphine 4 MG/ML VIAL IVP SCH ×8 (01:00→21:49)
[2017-09-20] MEDS: Piperacill/Tazo 3.375gm in Dex 3.375 GM/50 ML BAG IVPB SCH ×4 (04:30→22:38)
[2017-09-20 06:39] LABS: BASO # 0.1 K/uL (0.0-0.2); BASO % 0.5 % (0.0-2.0); EOS # 0.1 K/uL (0.0-0.7); EOS % 0.9 % (0.0-4.0); HEMATOCRIT 24.8 % (34.0-47.0); LYMPH % 6.8 % (20.0-40.0); MEAN CELL VOLUME 89.5 fL (81.0-99.0); MEAN CORPUSCULAR HEMOGLOBIN 30.5 pg (27.0-31.0); MEAN CORPUSCULAR HGB CONC 34.1 g/dL (33.0-37.0); MEAN PLATELET VOLUME 9.1 fL (7.2-11.7); MONO # 1.3 K/uL (0.0-0.8); MONO % 8.4 % (0.0-10.0); NRBC % 0.1 % (0.0-2.0); PLATELET COUNT 160 K/uL (130-400); RED CELL DISTRIBUTION WIDTH 16.1 % (11.5-14.5); WHITE BLOOD COUNT 14.8 K/uL (4.8-10.8)
[2017-09-20 06:51] LABS: ALKALINE PHOSPHATASE 69 U/L (38-126); ALT/SGPT 27 U/L (9-52); AST/SGOT 36 U/L (14-36); BLOOD UREA NITROGEN 19 mg/dL (7-17); CALCIUM 8.7 mg/dl (8.6-10.4); CARBON DIOXIDE 25 mmol/L (22-30); CHLORIDE 103 mmol/L (98-107); GFR AFRICAN-AMERICAN > 60; GLUCOSE,RANDOM 111 mg/dL (65-105); MAGNESIUM 1.4 mg/dL (1.6-2.3); PHOSPHOROUS 2.7 mg/dL (2.5-4.5); POTASSIUM 3.7 mmol/L (3.6-5.2); SODIUM 138 mmol/L (132-148); TOTAL PROTEIN 7.9 g/dL (6.3-8.3)
[2017-09-20 06:52] LABS: ALB/GLOB RATIO 0.7 (1.0-2.1)
[2017-09-20 08:42] LABS: EOSINOPHIL 1 % (0-4); MYELOCYTE 1 % (0-0); NEUTROPHIL 82 % (50-75); TOTAL CELLS COUNTED 100
[2017-09-20] MEDS: Potassium Chloride 20 mEq ER Tab PO SCH (10:08)
[2017-09-20] MEDS: Vitamins A & D Oint UD Foilpak TOP SCH (10:57)
[2017-09-20] MEDS ORDERED: PPN #10 IV ONE (18:00)
--- NOTE | 2017-09-20 18:25 | CP.PCM.PN ---
Subjective - Date & Time of Evaluation Date of Evaluation: 09/20/17 Time of Evaluation: 11:20 - Subjective Subjective: clinically same Objective - Vital Signs/Intake and Output Vital Signs (last 24 hours): Temp Pulse Resp BP Pulse Ox 98 F 100 H 20 132/92 H 98 09/20/17 15:50 09/20/17 15:50 09/20/17 15:50 09/20/17 15:50 09/20/17 15:50 Intake and Output: 09/20/17 09/20/17 06:59 18:59 Intake Total 930 Output Total 275 Balance 655 - Medications Medications: Current Medications Calcitriol (Rocaltrol) 0.25 mcg PO DAILY [facility] Last Admin: 09/20/17 10:08 Dose: Not Given Dronabinol (Marinol) 5 mg PO BID [facility] Last Admin: 09/20/17 17:54 Dose: Not Given Albumin Human (Albumin Human 25% (12.5 Gm/50 Ml)) 50 mls @ 100 mls/hr IV Q8 [facility] Last Admin: 09/20/17 13:28 Dose: 100 mls/hr Piperacillin Sod/Tazobactam Sod (Zosyn 3.375 Gm Iv Premix) 3.375 gm in 50 mls @ 100 mls/hr IVPB Q6H [facility] Last Admin: 09/20/17 16:02 Dose: 100 mls/hr Parenteral Electrolytes 20 ml/Multivitamins/Vitamin C 10 ml / Chromium/Copper/ Manganese/Zinc 1 ml/ Amino Acids 1,031 mls @ 42 mls/hr IV .Q24H ONE Stop: 09/21/17 17:59 Last Admin: 09/20/17 17:53 Dose: 42 mls/hr Morphine Sulfate (Morphine) 4 mg IVP Q3 [facility] Last Admin: 09/20/17 15:57 Dose: 4 mg Potassium Chloride (K-Dur 20 Meq Er Tab) 40 meq PO BRK [facility] Last Admin: 09/20/17 10:08 Dose: Not Given Vitamin A (Vitamin A & D Oint Ud Foilpak) 1 ea TOP DAILY [facility] Last Admin: 09/20/17 10:57 Dose: 1 ea - Labs Labs: 09/20/17 06:16 09/20/17 06:16 PT 16.1 SECONDS (9.7-12.2) H 09/04/17 14:19 INR 1.4 09/04/17 14:19 APTT 32 SECONDS (21-34) 09/04/17 14:19 - Constitutional Appears: Well - Head Exam Head Exam: ATRAUMATIC, NORMAL INSPECTION, NORMOCEPHALIC - Eye Exam Eye Exam: EOMI, Normal appearance, PERRL Pupil Exam: NORMAL ACCOMODATION, PERRL - ENT Exam ENT Exam: Mucous Membranes Moist, Normal Exam - Neck Exam Neck Exam: Full ROM, Normal Inspection. 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
--- NOTE | 2017-09-21 01:02 | CP.PCM.PN ---
Subjective - Date & Time of Evaluation Date of Evaluation: 09/20/17 Time of Evaluation: 14:45 - Subjective Subjective: No complaints, comfortable Objective - Vital Signs/Intake and Output Vital Signs (last 24 hours): Temp Pulse Resp BP Pulse Ox 98 F 100 H 20 132/92 H 98 09/20/17 15:50 09/20/17 15:50 09/20/17 15:50 09/20/17 15:50 09/20/17 15:50 Intake and Output: 09/20/17 09/21/17 18:59 06:59 Output Total 25 Balance -25 - Medications Medications: Current Medications Calcitriol (Rocaltrol) 0.25 mcg PO DAILY [facility] Last Admin: 09/20/17 10:08 Dose: Not Given Dronabinol (Marinol) 5 mg PO BID [facility] Last Admin: 09/20/17 17:54 Dose: Not Given Albumin Human (Albumin Human 25% (12.5 Gm/50 Ml)) 50 mls @ 100 mls/hr IV Q8 [facility] Last Admin: 09/20/17 21:29 Dose: 100 mls/hr Piperacillin Sod/Tazobactam Sod (Zosyn 3.375 Gm Iv Premix) 3.375 gm in 50 mls @ 100 mls/hr IVPB Q6H [facility] Last Admin: 09/20/17 22:38 Dose: 100 mls/hr Parenteral Electrolytes 20 ml/Multivitamins/Vitamin C 10 ml / Chromium/Copper/ Manganese/Zinc 1 ml/ Amino Acids 1,031 mls @ 42 mls/hr IV .Q24H ONE Stop: 09/21/17 17:59 Last Admin: 09/20/17 17:53 Dose: 42 mls/hr Morphine Sulfate (Morphine) 4 mg IVP Q3 [facility] Last Admin: 09/20/17 21:49 Dose: 4 mg Potassium Chloride (K-Dur 20 Meq Er Tab) 40 meq PO BRK [facility] Last Admin: 09/20/17 10:08 Dose: Not Given Vitamin A (Vitamin A & D Oint Ud Foilpak) 1 ea TOP DAILY [facility] Last Admin: 09/20/17 10:57 Dose: 1 ea - Labs Labs: 09/20/17 06:16 09/20/17 06:16 PT 16.1 SECONDS (9.7-12.2) H 09/04/17 14:19 INR 1.4 09/04/17 14:19 APTT 32 SECONDS (21-34) 09/04/17 14:19 - Head Exam Head Exam: ATRAUMATIC - Eye Exam Eye Exam: Normal appearance - ENT Exam ENT Exam: Mucous Membranes Dry - Respiratory Exam Respiratory Exam: Decreased Breath Sounds - Cardiovascular Exam Cardiovascular Exam: +S1, +S2 - GI/Abdominal Exam GI & Abdominal Exam: Normal Bowel Sounds Assessment and Plan (1) Anemia Assessment & Plan: chronic disease transfusion support PRN Status: Acute (2) Extraovarian primary peritoneal carcinoma Assessment & Plan: supportive care DNR/DNI Status: Chronic
[2017-09-21] MEDS: Morphine 4 MG/ML VIAL IVP SCH ×8 (02:24→21:50)
[2017-09-21] MEDS: Piperacill/Tazo 3.375gm in Dex 3.375 GM/50 ML BAG IVPB SCH ×4 (04:34→21:50)
[2017-09-21 06:25] LABS: BASO # 0.1 K/uL (0.0-0.2); BASO % 0.4 % (0.0-2.0); EOS # 0.1 K/uL (0.0-0.7); EOS % 0.7 % (0.0-4.0); LYMPH % 7.6 % (20.0-40.0); MEAN CELL VOLUME 89.6 fL (81.0-99.0); MEAN CORPUSCULAR HEMOGLOBIN 29.8 pg (27.0-31.0); MEAN CORPUSCULAR HGB CONC 33.2 g/dL (33.0-37.0); MEAN PLATELET VOLUME 9.4 fL (7.2-11.7); MONO # 1.1 K/uL (0.0-0.8); PLATELET COUNT 169 K/uL (130-400); RED CELL DISTRIBUTION WIDTH 16.2 % (11.5-14.5); WHITE BLOOD COUNT 13.6 K/uL (4.8-10.8)
[2017-09-21] MEDS: Potassium Chloride 20 mEq ER Tab PO SCH (08:00)
[2017-09-21 08:21] LABS: EOSINOPHIL 1 % (0-4); NEUTROPHIL 84 % (50-75); TOTAL CELLS COUNTED 100
[2017-09-21 09:27] LABS: ALKALINE PHOSPHATASE 74 U/L (38-126); ALT/SGPT 23 U/L (9-52); AST/SGOT 50 U/L (14-36); BILIRUBIN,TOTAL 1.5 mg/dL (0.2-1.3); BLOOD UREA NITROGEN 18 mg/dL (7-17); CALCIUM 8.4 mg/dl (8.6-10.4); CARBON DIOXIDE 24 mmol/L (22-30); CHLORIDE 104 mmol/L (98-107); GFR AFRICAN-AMERICAN > 60; GLUCOSE,RANDOM 116 mg/dL (65-105); MAGNESIUM 1.4 mg/dL (1.6-2.3); PHOSPHOROUS 2.3 mg/dL (2.5-4.5); POTASSIUM 3.2 mmol/L (3.6-5.2); SODIUM 139 mmol/L (132-148); TOTAL PROTEIN 6.4 g/dL (6.3-8.3)
[2017-09-21] MEDS: Vitamins A & D Oint UD Foilpak TOP SCH (10:45)
[2017-09-21] MEDS ORDERED: PPN #11 IV ONE (18:00)
--- NOTE | 2017-09-21 19:29 | CP.PCM.PN ---
Subjective - Date & Time of Evaluation Date of Evaluation: 09/21/17 Time of Evaluation: 10:00 - Subjective Subjective: clinically same Objective - Vital Signs/Intake and Output Vital Signs (last 24 hours): Temp Pulse Resp BP Pulse Ox 97.7 F 100 H 18 130/86 100 09/21/17 15:22 09/21/17 15:22 09/21/17 15:22 09/21/17 15:22 09/21/17 15:22 Intake and Output: 09/21/17 09/22/17 18:59 06:59 Intake Total 600 Output Total 200 Balance 400 - Medications Medications: Current Medications Calcitriol (Rocaltrol) 0.25 mcg PO DAILY [facility] Last Admin: 09/21/17 10:46 Dose: 0.25 mcg Dronabinol (Marinol) 5 mg PO BID [facility] Last Admin: 09/21/17 17:58 Dose: 5 mg Albumin Human (Albumin Human 25% (12.5 Gm/50 Ml)) 50 mls @ 100 mls/hr IV Q8 [facility] Last Admin: 09/21/17 13:33 Dose: 100 mls/hr Piperacillin Sod/Tazobactam Sod (Zosyn 3.375 Gm Iv Premix) 3.375 gm in 50 mls @ 100 mls/hr IVPB Q6H [facility] Last Admin: 09/21/17 16:30 Dose: 100 mls/hr Parenteral Electrolytes 20 ml/Multivitamins/Vitamin C 10 ml / Chromium/Copper/ Manganese/Zinc 1 ml/ Amino Acids 1,031 mls @ 42 mls/hr IV .Q24H ONE Stop: 09/22/17 17:59 Last Admin: 09/21/17 17:58 Dose: 42 mls/hr Morphine Sulfate (Morphine) 4 mg IVP Q3 [facility] Last Admin: 09/21/17 18:03 Dose: 4 mg Potassium Chloride (K-Dur 20 Meq Er Tab) 40 meq PO BRK [facility] Last Admin: 09/21/17 08:00 Dose: 40 meq Vitamin A (Vitamin A & D Oint Ud Foilpak) 1 ea TOP DAILY [facility] Last Admin: 09/21/17 10:45 Dose: 1 ea - Labs Labs: 09/21/17 06:16 09/21/17 09:13 PT 16.1 SECONDS (9.7-12.2) H 09/04/17 14:19 INR 1.4 09/04/17 14:19 APTT 32 SECONDS (21-34) 09/04/17 14:19 - Constitutional Appears: Well - Head Exam Head Exam: ATRAUMATIC, NORMAL INSPECTION, NORMOCEPHALIC - Eye Exam Eye Exam: EOMI, Normal appearance, PERRL Pupil Exam: NORMAL ACCOMODATION, PERRL - ENT Exam ENT Exam: Mucous Membranes Moist, Normal Exam - Neck Exam Neck Exam: Full ROM, Normal Inspection. 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
--- NOTE | 2017-09-21 22:27 | CP.PCM.PN ---
Subjective - Date & Time of Evaluation Date of Evaluation: 09/21/17 Time of Evaluation: 20:30 - Subjective Subjective: No complaints, Objective - Vital Signs/Intake and Output Vital Signs (last 24 hours): Temp Pulse Resp BP Pulse Ox 97.7 F 100 H 18 130/86 100 09/21/17 15:22 09/21/17 15:22 09/21/17 15:22 09/21/17 15:22 09/21/17 15:22 Intake and Output: 09/21/17 09/22/17 18:59 06:59 Intake Total 600 Output Total 200 Balance 400 - Medications Medications: Current Medications Calcitriol (Rocaltrol) 0.25 mcg PO DAILY [facility] Last Admin: 09/21/17 10:46 Dose: 0.25 mcg Dronabinol (Marinol) 5 mg PO BID [facility] Last Admin: 09/21/17 17:58 Dose: 5 mg Albumin Human (Albumin Human 25% (12.5 Gm/50 Ml)) 50 mls @ 100 mls/hr IV Q8 [facility] Last Admin: 09/21/17 21:50 Dose: 100 mls/hr Piperacillin Sod/Tazobactam Sod (Zosyn 3.375 Gm Iv Premix) 3.375 gm in 50 mls @ 100 mls/hr IVPB Q6H [facility] Last Admin: 09/21/17 21:50 Dose: 100 mls/hr Parenteral Electrolytes 20 ml/Multivitamins/Vitamin C 10 ml / Chromium/Copper/ Manganese/Zinc 1 ml/ Amino Acids 1,031 mls @ 42 mls/hr IV .Q24H ONE Stop: 09/22/17 17:59 Last Admin: 09/21/17 17:58 Dose: 42 mls/hr Morphine Sulfate (Morphine) 4 mg IVP Q3 [facility] Last Admin: 09/21/17 21:50 Dose: 4 mg Potassium Chloride (K-Dur 20 Meq Er Tab) 40 meq PO BRK [facility] Last Admin: 09/21/17 08:00 Dose: 40 meq Vitamin A (Vitamin A & D Oint Ud Foilpak) 1 ea TOP DAILY [facility] Last Admin: 09/21/17 10:45 Dose: 1 ea - Labs Labs: 09/21/17 06:16 09/21/17 09:13 PT 16.1 SECONDS (9.7-12.2) H 09/04/17 14:19 INR 1.4 09/04/17 14:19 APTT 32 SECONDS (21-34) 09/04/17 14:19 - Head Exam Head Exam: ATRAUMATIC - Eye Exam Eye Exam: Normal appearance - ENT Exam ENT Exam: Mucous Membranes Dry - Respiratory Exam Respiratory Exam: NORMAL BREATHING PATTERN - Cardiovascular Exam Cardiovascular Exam: +S1, +S2 - GI/Abdominal Exam GI & Abdominal Exam: Normal Bowel Sounds Assessment and Plan (1) Anemia Assessment & Plan: chronic disease transfusion support PRN Status: Acute (2) Extraovarian primary peritoneal carcinoma Assessment & Plan: supportive care DNR/DNI Status: Chronic
[2017-09-22] MEDS: Morphine 4 MG/ML VIAL IVP SCH ×8 (00:48→21:58)
[2017-09-22] MEDS: Piperacill/Tazo 3.375gm in Dex 3.375 GM/50 ML BAG IVPB SCH ×4 (04:42→21:57)
[2017-09-22] MEDS: Potassium Chloride 20 mEq ER Tab PO SCH (08:21)
[2017-09-22] MEDS: Vitamins A & D Oint UD Foilpak TOP SCH (10:28)
[2017-09-22] MEDS ORDERED: Potassium Chloride 20 mEq ER Tab PO STA (14:05)
--- NOTE | 2017-09-22 15:49 | CP.PCM.PN ---
Subjective - Date & Time of Evaluation Date of Evaluation: 09/22/17 Time of Evaluation: 10:00 - Subjective Subjective: clinically same Objective - Vital Signs/Intake and Output Vital Signs (last 24 hours): Temp Pulse Resp BP Pulse Ox 98.4 F 98 H 20 159/96 H 97 09/22/17 07:00 09/22/17 07:00 09/22/17 07:00 09/22/17 07:00 09/22/17 07:00 Intake and Output: 09/22/17 09/22/17 06:59 18:59 Intake Total 586 Output Total 345 Balance 241 - Medications Medications: Current Medications Calcitriol (Rocaltrol) 0.25 mcg PO DAILY [facility] Last Admin: 09/22/17 10:28 Dose: 0.25 mcg Dronabinol (Marinol) 5 mg PO BID [facility] Last Admin: 09/22/17 10:28 Dose: 5 mg Albumin Human (Albumin Human 25% (12.5 Gm/50 Ml)) 50 mls @ 100 mls/hr IV Q8 [facility] Last Admin: 09/22/17 14:33 Dose: 100 mls/hr Piperacillin Sod/Tazobactam Sod (Zosyn 3.375 Gm Iv Premix) 3.375 gm in 50 mls @ 100 mls/hr IVPB Q6H [facility] Last Admin: 09/22/17 10:30 Dose: 100 mls/hr Parenteral Electrolytes 20 ml/Multivitamins/Vitamin C 10 ml / Chromium/Copper/ Manganese/Zinc 1 ml/ Amino Acids 1,031 mls @ 42 mls/hr IV .Q24H ONE Stop: 09/22/17 17:59 Last Admin: 09/21/17 17:58 Dose: 42 mls/hr Parenteral Electrolytes 20 ml/Multivitamins/Vitamin C 10 ml / Chromium/Copper/ Manganese/Seleni/Zn 1 ml/ Amino Acids 1,031 mls @ 42 mls/hr IV .Q24H ONE Stop: 09/23/17 17:59 Morphine Sulfate (Morphine) 4 mg IVP Q3 [facility] Last Admin: 09/22/17 10:35 Dose: 4 mg Vitamin A (Vitamin A & D Oint Ud Foilpak) 1 ea TOP DAILY [facility] Last Admin: 09/22/17 10:28 Dose: 1 ea - Labs Labs: 09/21/17 06:16 09/21/17 09:13 PT 16.1 SECONDS (9.7-12.2) H 09/04/17 14:19 INR 1.4 09/04/17 14:19 APTT 32 SECONDS (21-34) 09/04/17 14:19 - Constitutional Appears: Well - Head Exam Head Exam: ATRAUMATIC, NORMAL INSPECTION, NORMOCEPHALIC - Eye Exam Eye Exam: EOMI, Normal appearance, PERRL Pupil Exam: NORMAL ACCOMODATION, PERRL - ENT Exam ENT Exam: Mucous Membranes Moist, Normal Exam - Neck Exam Neck Exam: Full ROM, Normal Inspection. 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
[2017-09-22] MEDS ORDERED: PPN#12 IV ONE (18:00)
[2017-09-23] MEDS: Morphine 4 MG/ML VIAL IVP SCH ×8 (01:11→21:10)
[2017-09-23] MEDS: Piperacill/Tazo 3.375gm in Dex 3.375 GM/50 ML BAG IVPB SCH ×2 (04:22→11:19)
[2017-09-23 07:47] LABS: BASO # 0.1 K/uL (0.0-0.2); BASO % 0.7 % (0.0-2.0); EOS # 0.1 K/uL (0.0-0.7); EOS % 0.9 % (0.0-4.0); HEMATOCRIT 22.4 % (34.0-47.0); LYMPH % 7.5 % (20.0-40.0); MEAN CELL VOLUME 90.7 fL (81.0-99.0); MEAN CORPUSCULAR HEMOGLOBIN 30.2 pg (27.0-31.0); MEAN CORPUSCULAR HGB CONC 33.4 g/dL (33.0-37.0); MEAN PLATELET VOLUME 9.4 fL (7.2-11.7); PLATELET COUNT 194 K/uL (130-400); WHITE BLOOD COUNT 13.6 K/uL (4.8-10.8)
[2017-09-23 08:21] LABS: BLOOD UREA NITROGEN 19 mg/dL (7-17); CARBON DIOXIDE 23 mmol/L (22-30); CHLORIDE 105 mmol/L (98-107); GFR AFRICAN-AMERICAN > 60; GLUCOSE,RANDOM 138 mg/dL (65-105); POTASSIUM 4.3 mmol/L (3.6-5.2); SODIUM 139 mmol/L (132-148)
[2017-09-23 10:37] LABS: EOSINOPHIL 1 % (0-4); NEUTROPHIL 83 % (50-75); TOTAL CELLS COUNTED 100
[2017-09-23] MEDS: Vitamins A & D Oint UD Foilpak TOP SCH (11:00)
[2017-09-23] MEDS ORDERED: Piperacillin/Tazobact 3.375 GM in Sodium Chloride 0.9% 100 ML IVPB SCH ×2 (15:00→22:30)
--- NOTE | 2017-09-23 16:46 | CP.PCM.PN ---
Subjective - Date & Time of Evaluation Date of Evaluation: 09/23/17 Time of Evaluation: 10:20 - Subjective Subjective: clinically same Objective - Vital Signs/Intake and Output Vital Signs (last 24 hours): Temp Pulse Resp BP Pulse Ox 98.8 F 82 20 142/82 96 09/23/17 09:00 09/23/17 09:00 09/23/17 09:00 09/23/17 09:00 09/23/17 09:00 Intake and Output: 09/23/17 09/23/17 06:59 18:59 Intake Total 150 872 Output Total 210 250 Balance -60 622 - Medications Medications: Current Medications Calcitriol (Rocaltrol) 0.25 mcg PO DAILY [facility] Last Admin: 09/23/17 11:15 Dose: Not Given Dronabinol (Marinol) 5 mg PO BID [facility] Last Admin: 09/23/17 11:14 Dose: Not Given Albumin Human (Albumin Human 25% (12.5 Gm/50 Ml)) 50 mls @ 100 mls/hr IV Q8 [facility] Last Admin: 09/23/17 13:45 Dose: 100 mls/hr Parenteral Electrolytes 20 ml/Multivitamins/Vitamin C 10 ml / Chromium/Copper/ Manganese/Seleni/Zn 1 ml/ Amino Acids 1,031 mls @ 42 mls/hr IV .Q24H ONE Stop: 09/23/17 17:59 Last Admin: 09/22/17 17:05 Dose: 42 mls/hr Chromium/Copper/Manganese/Zinc 1 ml/ Heparin Sodium (Porcine ) 1,000 units/ Amino Acids/Electrolytes/Dextrose 1,001.2 mls @ 42 mls/hr IV .[id number] [facility] Fat Emulsion Intravenous (Intralipid 20%) 500 mls @ 42 mls/hr IV TTS@1800 [facility] Piperacillin Sod/Tazobactam (Sod 3.375 gm/ Sodium Chloride) 100 mls @ 100 mls/ hr IVPB Q6H [facility] Morphine Sulfate (Morphine) 4 mg IVP Q3 [facility] Last Admin: 09/23/17 16:36 Dose: 4 mg Vitamin A (Vitamin A & D Oint Ud Foilpak) 1 ea TOP DAILY [facility] Last Admin: 09/23/17 11:00 Dose: 1 ea - Labs Labs: 09/23/17 07:36 09/23/17 07:36 PT 16.1 SECONDS (9.7-12.2) H 09/04/17 14:19 INR 1.4 09/04/17 14:19 APTT 32 SECONDS (21-34) 09/04/17 14:19 - Constitutional Appears: Well - Head Exam Head Exam: ATRAUMATIC, NORMAL INSPECTION, NORMOCEPHALIC - Eye Exam Eye Exam: EOMI, Normal appearance, PERRL Pupil Exam: NORMAL ACCOMODATION, PERRL - ENT Exam ENT Exam: Mucous Membranes Moist, Normal Exam - Neck Exam Neck Exam: Full ROM, Normal Inspection. 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
[2017-09-23] MEDS: Piperacillin/Tazobact 3.375 GM in Sodium Chloride 0.9% 100 ML IVPB SCH ×2 (17:49→22:24)
[2017-09-23] MEDS ORDERED: TPN #1 IV SCH (18:00)
--- NOTE | 2017-09-23 18:15 | CP.PCM.PN ---
Subjective - Date & Time of Evaluation Date of Evaluation: 09/22/17 Time of Evaluation: 18:35 - Subjective Subjective: Appears comfortable, no complaints. Objective - Vital Signs/Intake and Output Vital Signs (last 24 hours): Temp Pulse Resp BP Pulse Ox 98.8 F 82 20 142/82 96 09/23/17 09:00 09/23/17 09:00 09/23/17 09:00 09/23/17 09:00 09/23/17 09:00 Intake and Output: 09/23/17 09/23/17 06:59 18:59 Intake Total 150 872 Output Total 210 250 Balance -60 622 - Medications Medications: Current Medications Calcitriol (Rocaltrol) 0.25 mcg PO DAILY [facility] Last Admin: 09/23/17 11:15 Dose: Not Given Dronabinol (Marinol) 5 mg PO BID [facility] Last Admin: 09/23/17 11:14 Dose: Not Given Albumin Human (Albumin Human 25% (12.5 Gm/50 Ml)) 50 mls @ 100 mls/hr IV Q8 [facility] Last Admin: 09/23/17 13:45 Dose: 100 mls/hr Chromium/Copper/Manganese/Zinc 1 ml/ Heparin Sodium (Porcine ) 1,000 units/ Amino Acids/Electrolytes/Dextrose 1,001.2 mls @ 42 mls/hr IV .[id number] [facility] Last Admin: 09/23/17 17:49 Dose: 42 mls/hr Fat Emulsion Intravenous (Intralipid 20%) 500 mls @ 42 mls/hr IV TTS@1800 [facility] Piperacillin Sod/Tazobactam (Sod 3.375 gm/ Sodium Chloride) 100 mls @ 100 mls/ hr IVPB Q6H [facility] Last Admin: 09/23/17 17:49 Dose: 100 mls/hr Morphine Sulfate (Morphine) 4 mg IVP Q3 [facility] Last Admin: 09/23/17 16:36 Dose: 4 mg Vitamin A (Vitamin A & D Oint Ud Foilpak) 1 ea TOP DAILY [facility] Last Admin: 09/23/17 11:00 Dose: 1 ea - Labs Labs: 09/23/17 07:36 09/23/17 07:36 PT 16.1 SECONDS (9.7-12.2) H 09/04/17 14:19 INR 1.4 09/04/17 14:19 APTT 32 SECONDS (21-34) 09/04/17 14:19 - Head Exam Head Exam: ATRAUMATIC - Eye Exam Eye Exam: Normal appearance - ENT Exam ENT Exam: Mucous Membranes Dry - Respiratory Exam Respiratory Exam: NORMAL BREATHING PATTERN - Cardiovascular Exam Cardiovascular Exam: +S1, +S2 - GI/Abdominal Exam GI & Abdominal Exam: Normal Bowel Sounds Assessment and Plan (1) Anemia Assessment & Plan: chronic disease from malignancy transfusion support PRN Status: Acute (2) Extraovarian primary peritoneal carcinoma Assessment & Plan: supportive care DNR/DNI Status: Chronic
[2017-09-24] MEDS: Morphine 4 MG/ML VIAL IVP SCH ×8 (01:15→22:17)
[2017-09-24] MEDS: Piperacillin/Tazobact 3.375 GM in Sodium Chloride 0.9% 100 ML IVPB SCH ×4 (05:10→22:17)
[2017-09-24] MEDS: Vitamins A & D Oint UD Foilpak TOP SCH (10:41)
[2017-09-24] MEDS ORDERED: TPN #2 IV ONE (18:00)
--- NOTE | 2017-09-24 19:01 | CP.PCM.PN ---
Subjective - Date & Time of Evaluation Date of Evaluation: 09/24/17 Time of Evaluation: 09:00 - Subjective Subjective: clinically same Objective - Vital Signs/Intake and Output Vital Signs (last 24 hours): Temp Pulse Resp BP Pulse Ox 98.4 F 98 H 18 145/85 100 09/24/17 15:00 09/24/17 15:00 09/24/17 15:00 09/24/17 15:00 09/24/17 15:00 Intake and Output: 09/24/17 09/25/17 18:59 06:59 Intake Total 738 Output Total 50 Balance 688 - Medications Medications: Current Medications Calcitriol (Rocaltrol) 0.25 mcg PO DAILY [facility] Last Admin: 09/24/17 10:41 Dose: 0.25 mcg Dronabinol (Marinol) 5 mg PO BID [facility] Last Admin: 09/24/17 18:32 Dose: 5 mg Fat Emulsion Intravenous (Intralipid 20%) 500 mls @ 42 mls/hr IV TTS@1800 [facility] Piperacillin Sod/Tazobactam (Sod 3.375 gm/ Sodium Chloride) 100 mls @ 100 mls/ hr IVPB Q6H [facility] Last Admin: 09/24/17 17:45 Dose: 100 mls/hr Chromium/Copper/Manganese/Zinc 1 ml/ Heparin Sodium (Porcine ) 1,000 units/ Multivitamins/Vitamin C 10 ml/ Amino Acids/Electrolytes/Dextrose 1,012 mls @ 42 mls/hr IV .Q24H ONE Stop: 09/25/17 17:59 Last Admin: 09/24/17 18:35 Dose: 42 mls/hr Morphine Sulfate (Morphine) 4 mg IVP Q3 [facility] Last Admin: 09/24/17 16:30 Dose: 4 mg Vitamin A (Vitamin A & D Oint Ud Foilpak) 1 ea TOP DAILY [facility] Last Admin: 09/24/17 10:41 Dose: 1 ea - Labs Labs: 09/23/17 07:36 09/23/17 07:36 PT 16.1 SECONDS (9.7-12.2) H 09/04/17 14:19 INR 1.4 09/04/17 14:19 APTT 32 SECONDS (21-34) 09/04/17 14:19 - Constitutional Appears: Well - Head Exam Head Exam: ATRAUMATIC, NORMAL INSPECTION, NORMOCEPHALIC - Eye Exam Eye Exam: EOMI, Normal appearance, PERRL Pupil Exam: NORMAL ACCOMODATION, PERRL - ENT Exam ENT Exam: Mucous Membranes Moist, Normal Exam - Neck Exam Neck Exam: Full ROM, Normal Inspection. 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
--- NOTE | 2017-09-25 00:41 | CP.PCM.PN ---
Subjective - Date & Time of Evaluation Date of Evaluation: 09/24/17 Time of Evaluation: 19:00 - Subjective Subjective: No complaints. Objective - Vital Signs/Intake and Output Vital Signs (last 24 hours): Temp Pulse Resp BP Pulse Ox 98.4 F 98 H 18 145/85 100 09/24/17 15:00 09/24/17 15:00 09/24/17 15:00 09/24/17 15:00 09/24/17 15:00 Intake and Output: 09/24/17 09/25/17 18:59 06:59 Intake Total 738 572 Output Total 50 250 Balance 688 322 - Medications Medications: Current Medications Calcitriol (Rocaltrol) 0.25 mcg PO DAILY [facility] Last Admin: 09/24/17 10:41 Dose: 0.25 mcg Dronabinol (Marinol) 5 mg PO BID [facility] Last Admin: 09/24/17 18:32 Dose: 5 mg Fat Emulsion Intravenous (Intralipid 20%) 500 mls @ 42 mls/hr IV TTS@1800 [facility] Piperacillin Sod/Tazobactam (Sod 3.375 gm/ Sodium Chloride) 100 mls @ 100 mls/ hr IVPB Q6H [facility] Last Admin: 09/24/17 22:17 Dose: 100 mls/hr Chromium/Copper/Manganese/Zinc 1 ml/ Heparin Sodium (Porcine ) 1,000 units/ Multivitamins/Vitamin C 10 ml/ Amino Acids/Electrolytes/Dextrose 1,012 mls @ 42 mls/hr IV .Q24H ONE Stop: 09/25/17 17:59 Last Admin: 09/24/17 18:35 Dose: 42 mls/hr Morphine Sulfate (Morphine) 4 mg IVP Q3 [facility] Last Admin: 09/24/17 22:17 Dose: 4 mg Vitamin A (Vitamin A & D Oint Ud Foilpak) 1 ea TOP DAILY [facility] Last Admin: 09/24/17 10:41 Dose: 1 ea - Labs Labs: 09/23/17 07:36 09/23/17 07:36 PT 16.1 SECONDS (9.7-12.2) H 09/04/17 14:19 INR 1.4 09/04/17 14:19 APTT 32 SECONDS (21-34) 09/04/17 14:19 - Head Exam Head Exam: ATRAUMATIC - Eye Exam Eye Exam: Normal appearance - ENT Exam ENT Exam: Mucous Membranes Dry - Respiratory Exam Respiratory Exam: Decreased Breath Sounds - Cardiovascular Exam Cardiovascular Exam: +S1, +S2 - GI/Abdominal Exam GI & Abdominal Exam: Normal Bowel Sounds Assessment and Plan (1) Anemia Assessment & Plan: chronic disease transfusion support PRN Status: Acute (2) Extraovarian primary peritoneal carcinoma Assessment & Plan: supportive care DNR/DNI Status: Chronic
[2017-09-25] MEDS: Morphine 4 MG/ML VIAL IVP SCH ×8 (01:00→22:43)
[2017-09-25] MEDS: Piperacillin/Tazobact 3.375 GM in Sodium Chloride 0.9% 100 ML IVPB SCH ×4 (04:28→22:09)
[2017-09-25 06:32] LABS: BASO # 0.1 K/uL (0.0-0.2); BASO % 0.5 % (0.0-2.0); EOS # 0.3 K/uL (0.0-0.7); EOS % 1.7 % (0.0-4.0); HEMATOCRIT 22.7 % (34.0-47.0); LYMPH # 1.4 K/uL (1.0-4.3); LYMPH % 8.6 % (20.0-40.0); MEAN CELL VOLUME 91.1 fL (81.0-99.0); MEAN CORPUSCULAR HEMOGLOBIN 29.7 pg (27.0-31.0); MEAN CORPUSCULAR HGB CONC 32.5 g/dL (33.0-37.0); MEAN PLATELET VOLUME 9.1 fL (7.2-11.7); MONO # 1.2 K/uL (0.0-0.8); MONO % 7.2 % (0.0-10.0); NRBC % 0.1 % (0.0-2.0); PLATELET COUNT 215 K/uL (130-400); RED CELL DISTRIBUTION WIDTH 16.6 % (11.5-14.5); WHITE BLOOD COUNT 16.4 K/uL (4.8-10.8)
[2017-09-25 06:52] LABS: BLOOD UREA NITROGEN 20 mg/dL (7-17); CALCIUM 8.3 mg/dl (8.6-10.4); CARBON DIOXIDE 25 mmol/L (22-30); CHLORIDE 106 mmol/L (98-107); GFR AFRICAN-AMERICAN > 60; GLUCOSE,RANDOM 104 mg/dL (65-105); POTASSIUM 3.5 mmol/L (3.6-5.2); SODIUM 141 mmol/L (132-148)
--- NOTE | 2017-09-25 07:54 | CP.PCM.PN ---
Subjective - Date & Time of Evaluation Date of Evaluation: 09/25/17 Time of Evaluation: 11:36 - Subjective Subjective: PGY2 Medicine Note for Dr. Cammie Murillo; all management as per Dr. Cammie Murillo Patient seen and examined at bedside this AM; patient denies any symptoms and states that pain is more or less controlled; denies fevers/chills, SULTANA, SOB, dysuria/freq/urg, or lower extremity pain/swelling. Objective - Vital Signs/Intake and Output Vital Signs (last 24 hours): Temp Pulse Resp BP Pulse Ox 98.4 F 110 H 18 152/88 H 98 09/25/17 07:48 09/25/17 07:48 09/25/17 07:48 09/25/17 07:48 09/25/17 07:48 Intake and Output: 09/25/17 09/25/17 06:59 18:59 Intake Total 572 Output Total 250 Balance 322 - Medications Medications: Current Medications Calcitriol (Rocaltrol) 0.25 mcg PO DAILY [facility] Last Admin: 09/24/17 10:41 Dose: 0.25 mcg Dronabinol (Marinol) 5 mg PO BID [facility] Last Admin: 09/24/17 18:32 Dose: 5 mg Fat Emulsion Intravenous (Intralipid 20%) 500 mls @ 42 mls/hr IV TTS@1800 [facility] Piperacillin Sod/Tazobactam (Sod 3.375 gm/ Sodium Chloride) 100 mls @ 100 mls/ hr IVPB Q6H [facility] Last Admin: 09/25/17 04:28 Dose: 100 mls/hr Chromium/Copper/Manganese/Zinc 1 ml/ Heparin Sodium (Porcine ) 1,000 units/ Multivitamins/Vitamin C 10 ml/ Amino Acids/Electrolytes/Dextrose 1,012 mls @ 42 mls/hr IV .Q24H ONE Stop: 09/25/17 17:59 Last Admin: 09/24/17 18:35 Dose: 42 mls/hr Morphine Sulfate (Morphine) 4 mg IVP Q3 [facility] Last Admin: 09/25/17 06:17 Dose: 4 mg Vitamin A (Vitamin A & D Oint Ud Foilpak) 1 ea TOP DAILY [facility] Last Admin: 09/24/17 10:41 Dose: 1 ea - Labs Labs: 09/25/17 06:18 09/25/17 06:18 PT 16.1 SECONDS (9.7-12.2) H 09/04/17 14:19 INR 1.4 09/04/17 14:19 APTT 32 SECONDS (21-34) 09/04/17 14:19 - Constitutional Appears: Cachectic, Chronically Ill - Head Exam Head Exam: ATRAUMATIC - Eye Exam Eye Exam: Scleral icterus - ENT Exam ENT Exam: Mucous Membranes Dry - Neck Exam Neck Exam: absent: Lymphadenopathy - Respiratory Exam Respiratory Exam: Rales. absent: Clear to Ausculation Bilateral - Cardiovascular Exam Cardiovascular Exam: REGULAR RHYTHM - GI/Abdominal Exam GI & Abdominal Exam: Firm, Guarding, Rigid, Tenderness. absent: Distended, Soft - Extremities Exam Extremities Exam: absent: Calf Tenderness - Back Exam Back Exam: absent: CVA tenderness (L), CVA tenderness (R) - Neurological Exam Neurological Exam: Alert, Awake - Psychiatric Exam Psychiatric exam: Depressed - Skin Skin Exam: Warm Assessment and Plan - Assessment and Plan (Free Text) Assessment: Extraovarian primary peritoneal carcinoma HemeOn Consulted, Dr. Hdez, f/u recs supportive care CT scan shows progression of her disease despite cytoreductive surgery Palliated care consult, Rosa, f/u recs; patient is only for supportive care with no aggressive measures Continue Morphine for pain 09/13: Dr. Hdez is not recommending any further chemo as patient is extremely weak and poor candidate; will continue with supportive/comfort care; please refer to palliative care consult for further recs Anemia; chronic and will monitor anemia of chronic disease FOBT positive transfusion support PRN Leukocytosis; stable most likely 2/2 to CA 09/13-09/14: remains elevated on Pip/tazo Continue piperacillin tazobactam. UTI; resolved Urine culture grew yeast. Diflucan) 100 mg PO DAILY [facility] Decrease oral intake; chronic 09/14: Not a PEG candidate, also patient/family do not want PEG placement. They are considering hospice. 09/12: GI consult, Dr. Norris - for possible PEG tube. f/u recs. Fat Emulsion Intravenous (Intralipid 20%) 500 mls @ 50 mls/hr IV TTS@1800 [facility] 09/13: started Marinol 5mg BID; will see how helps nausea and oral intake; patient does not have dysphagia but is simply not eating Nausea; controlled Continue Zofran Tab) 4 mg PO Q8 PRN Electrolyte Imbalance; will monitor Prophylaxis SCDs Lovenox) 40 mg SC DAILY [facility] Protonix Ec Tab) 40 mg PO DAILY [facility] Code Status: DNR/DNI Disposition: Pt is for d/c to LTAC patient is to continue zosyn until 09/15 for 3 weeks total more after d/c the patients pain should be controlled upon discharge with current dosing regimen the patient is stable for d/c as per Dr. Cammie murillo. All management as per Dr. Cammie Murillo
[2017-09-25 08:45] LABS: EOSINOPHIL 2 % (0-4); NEUTROPHIL 84 % (50-75); TOTAL CELLS COUNTED 100
[2017-09-25] MEDS ORDERED: Morphine 10 mg/5 ml Oral Soln PO PRN (10:29)
[2017-09-25] MEDS: Vitamins A & D Oint UD Foilpak TOP SCH (10:47)
[2017-09-25] MEDS ORDERED: TPN #3 IV ONE (18:00)
[2017-09-25] MEDS ORDERED: Fat Emulsion 20% IV 500 ML IV SCH (18:00)
[2017-09-25] MEDS ORDERED: Potassium Chloride 20 mEq ER Tab PO STA (18:15)
--- NOTE | 2017-09-25 18:30 | CP.PCM.PN ---
Subjective - Date & Time of Evaluation Date of Evaluation: 09/25/17 Time of Evaluation: 09:20 - Subjective Subjective: clinically same Objective - Vital Signs/Intake and Output Vital Signs (last 24 hours): Temp Pulse Resp BP Pulse Ox 98.6 F 104 H 18 142/86 100 09/25/17 15:23 09/25/17 15:23 09/25/17 15:23 09/25/17 15:23 09/25/17 15:23 Intake and Output: 09/25/17 09/25/17 06:59 18:59 Intake Total 966 Output Total 250 Balance 716 - Medications Medications: Current Medications Calcitriol (Rocaltrol) 0.25 mcg PO DAILY [facility] Last Admin: 09/25/17 10:55 Dose: Not Given Dronabinol (Marinol) 5 mg PO BID [facility] Last Admin: 09/25/17 17:51 Dose: Not Given Fat Emulsion Intravenous (Intralipid 20%) 500 mls @ 42 mls/hr IV TTS@1800 [facility] Last Admin: 09/25/17 17:41 Dose: 42 mls/hr Piperacillin Sod/Tazobactam (Sod 3.375 gm/ Sodium Chloride) 100 mls @ 100 mls/ hr IVPB Q6H [facility] Last Admin: 09/25/17 17:30 Dose: 100 mls/hr Chromium/Copper/Manganese/Zinc 1 ml/ Heparin Sodium (Porcine ) 1,000 units/ Multivitamins/Vitamin C 10 ml/ Amino Acids/Electrolytes/Dextrose 1,012 mls @ 42 mls/hr IV .Q24H ONE Stop: 09/26/17 17:59 Last Admin: 09/25/17 17:51 Dose: 42 mls/hr Morphine Sulfate (Morphine) 4 mg IVP Q3 [facility] Last Admin: 09/25/17 17:42 Dose: Not Given Morphine Sulfate (Morphine) 3 mg IVP Q4 PRN PRN Reason: Pain, severe (8-10) Last Admin: 09/25/17 17:29 Dose: 3 mg Vitamin A (Vitamin A & D Oint Ud Foilpak) 1 ea TOP DAILY [facility] Last Admin: 09/25/17 10:47 Dose: 1 ea - Labs Labs: 09/25/17 06:18 09/25/17 06:18 PT 16.1 SECONDS (9.7-12.2) H 09/04/17 14:19 INR 1.4 09/04/17 14:19 APTT 32 SECONDS (21-34) 09/04/17 14:19 - Constitutional Appears: Well - Head Exam Head Exam: ATRAUMATIC, NORMAL INSPECTION, NORMOCEPHALIC - Eye Exam Eye Exam: EOMI, Normal appearance, PERRL Pupil Exam: NORMAL ACCOMODATION, PERRL - ENT Exam ENT Exam: Mucous Membranes Moist, Normal Exam - Neck Exam Neck Exam: Full ROM, Normal Inspection. 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
--- NOTE | 2017-09-25 19:41 | CP.PCM.PN ---
Subjective - Date & Time of Evaluation Date of Evaluation: 09/25/17 Time of Evaluation: 18:00 - Subjective Subjective: No complaints, comfortable Objective - Vital Signs/Intake and Output Vital Signs (last 24 hours): Temp Pulse Resp BP Pulse Ox 98.6 F 104 H 18 142/86 100 09/25/17 15:23 09/25/17 15:23 09/25/17 15:23 09/25/17 15:23 09/25/17 15:23 - Medications Medications: Current Medications Calcitriol (Rocaltrol) 0.25 mcg PO DAILY [facility] Last Admin: 09/25/17 10:55 Dose: Not Given Dronabinol (Marinol) 5 mg PO BID [facility] Last Admin: 09/25/17 17:51 Dose: Not Given Fat Emulsion Intravenous (Intralipid 20%) 500 mls @ 42 mls/hr IV TTS@1800 [facility] Last Admin: 09/25/17 17:41 Dose: 42 mls/hr Piperacillin Sod/Tazobactam (Sod 3.375 gm/ Sodium Chloride) 100 mls @ 100 mls/ hr IVPB Q6H [facility] Last Admin: 09/25/17 17:30 Dose: 100 mls/hr Chromium/Copper/Manganese/Zinc 1 ml/ Heparin Sodium (Porcine ) 1,000 units/ Multivitamins/Vitamin C 10 ml/ Amino Acids/Electrolytes/Dextrose 1,012 mls @ 42 mls/hr IV .Q24H ONE Stop: 09/26/17 17:59 Last Admin: 09/25/17 17:51 Dose: 42 mls/hr Morphine Sulfate (Morphine) 4 mg IVP Q3 [facility] Last Admin: 09/25/17 17:42 Dose: Not Given Morphine Sulfate (Morphine) 3 mg IVP Q4 PRN PRN Reason: Pain, severe (8-10) Last Admin: 09/25/17 17:29 Dose: 3 mg Vitamin A (Vitamin A & D Oint Ud Foilpak) 1 ea TOP DAILY [facility] Last Admin: 09/25/17 10:47 Dose: 1 ea - Labs Labs: 09/25/17 06:18 09/25/17 06:18 PT 16.1 SECONDS (9.7-12.2) H 09/04/17 14:19 INR 1.4 09/04/17 14:19 APTT 32 SECONDS (21-34) 09/04/17 14:19 - Head Exam Head Exam: ATRAUMATIC - Eye Exam Eye Exam: Normal appearance - ENT Exam ENT Exam: Mucous Membranes Dry - Respiratory Exam Respiratory Exam: NORMAL BREATHING PATTERN - Cardiovascular Exam Cardiovascular Exam: +S1, +S2 - GI/Abdominal Exam GI & Abdominal Exam: Normal Bowel Sounds Assessment and Plan (1) Anemia Assessment & Plan: chronic disease transfusion support PRN Status: Acute (2) Extraovarian primary peritoneal carcinoma Assessment & Plan: supportive care not a treatment candidate DNR/DNI Status: Chronic
[2017-09-26] MEDS: Morphine 4 MG/ML VIAL IVP SCH ×8 (00:20→22:54)
[2017-09-26] MEDS: Piperacillin/Tazobact 3.375 GM in Sodium Chloride 0.9% 100 ML IVPB SCH ×2 (04:31→09:59)
[2017-09-26] MEDS: Vitamins A & D Oint UD Foilpak TOP SCH (09:58)
--- NOTE | 2017-09-26 10:46 | CP.PCM.PN ---
Subjective - Date & Time of Evaluation Date of Evaluation: 09/26/17 Time of Evaluation: 10:40 - Subjective Subjective: PGY2 Progress Note for Dr. Cammie Peres's service Patient seen and examined at bedside this AM. Nursing reports no acute events overnight. Patient found lying comfortably in bed. She has no current complaints , stating that her pain is controlled on current regimen. Will speak with family when they arrive in afternoon, to go over their thoughts about home hospice. Objective - Vital Signs/Intake and Output Vital Signs (last 24 hours): Temp Pulse Resp BP Pulse Ox 98.5 F 99 H 20 136/86 100 09/26/17 07:57 09/26/17 07:57 09/26/17 07:57 09/26/17 07:57 09/26/17 07:57 Intake and Output: 09/26/17 09/26/17 06:59 18:59 Intake Total 394 Output Total 650 Balance -650 394 - Medications Medications: Current Medications Calcitriol (Rocaltrol) 0.25 mcg PO DAILY [facility] Last Admin: 09/26/17 10:27 Dose: Not Given Dronabinol (Marinol) 5 mg PO BID [facility] Last Admin: 09/26/17 10:27 Dose: Not Given Fat Emulsion Intravenous (Intralipid 20%) 500 mls @ 42 mls/hr IV TTS@1800 [facility] Last Admin: 09/25/17 17:41 Dose: 42 mls/hr Piperacillin Sod/Tazobactam (Sod 3.375 gm/ Sodium Chloride) 100 mls @ 100 mls/ hr IVPB Q6H [facility] Last Admin: 09/26/17 09:59 Dose: 100 mls/hr Chromium/Copper/Manganese/Zinc 1 ml/ Heparin Sodium (Porcine ) 1,000 units/ Multivitamins/Vitamin C 10 ml/ Amino Acids/Electrolytes/Dextrose 1,012 mls @ 42 mls/hr IV .Q24H ONE Stop: 09/26/17 17:59 Last Admin: 09/25/17 17:51 Dose: 42 mls/hr Morphine Sulfate (Morphine) 4 mg IVP Q3 [facility] Last Admin: 09/26/17 06:34 Dose: 4 mg Morphine Sulfate (Morphine) 3 mg IVP Q4 PRN PRN Reason: Pain, severe (8-10) Last Admin: 12/13/17 09:58 Dose: 3 mg Vitamin A (Vitamin A & D Oint Ud Foilpak) 1 ea TOP DAILY [facility] Last Admin: 09/26/17 09:58 Dose: 1 ea - Labs Labs: 09/25/17 06:18 09/25/17 06:18 PT 16.1 SECONDS (9.7-12.2) H 09/04/17 14:19 INR 1.4 09/04/17 14:19 APTT 32 SECONDS (21-34) 09/04/17 14:19 - Constitutional Appears: Cachectic, Chronically Ill - Head Exam Head Exam: ATRAUMATIC, NORMAL INSPECTION - Eye Exam Eye Exam: Scleral icterus - ENT Exam ENT Exam: Mucous Membranes Dry - Respiratory Exam Respiratory Exam: Clear to Ausculation Bilateral, NORMAL BREATHING PATTERN - Cardiovascular Exam Cardiovascular Exam: REGULAR RHYTHM, +S1, +S2 - GI/Abdominal Exam GI & Abdominal Exam: Firm, Guarding, Rigid, Tenderness - Back Exam Back Exam: absent: CVA tenderness (L), CVA tenderness (R) - Neurological Exam Neurological Exam: Alert, Awake - Psychiatric Exam Psychiatric exam: Depressed - Skin Skin Exam: Normal Color, Warm Assessment and Plan - Assessment and Plan (Free Text) Plan: Extraovarian primary peritoneal carcinoma HemeOnc Consulted, Dr. Hdez, f/u recs supportive care CT scan shows progression of her disease despite cytoreductive surgery Palliated care consult, Rosa, f/u recs; patient is only for supportive care with no aggressive measures Continue Morphine for pain 09/13: Dr. Hdez is not recommending any further chemo as patient is extremely weak and poor candidate; will continue with supportive/comfort care; please refer to palliative care consult for further recs Anemia; chronic and will monitor anemia of chronic disease FOBT positive transfusion support PRN - 09/26: Will f/u CBC and consider transfusion as Hgb again decreasing Leukocytosis; stable most likely 2/2 to CA 09/13-09/14: remains elevated on Pip/tazo Continue piperacillin tazobactam. UTI; resolved Urine culture grew yeast. - completed diflucan course - no present symptoms Decrease oral intake; chronic 09/26: Continue PPN, supplements per Dietary recommendations 09/14: Not a PEG candidate, also patient/family do not want PEG placement. They are considering hospice. 09/12: GI consult, Dr. Norris: pt is not a candidate w. tumor burden, patient desires comfort care Fat Emulsion Intravenous (Intralipid 20%) 500 mls @ 50 mls/hr IV TTS@1800 [facility] 09/13: started Marinol 5mg BID; will see how helps nausea and oral intake; patient does not have dysphagia but is simply not eating Nausea; controlled Continue Zofran Tab) 4 mg PO Q8 PRN Electrolyte Imbalance; will monitor K 3.4 on 09/25 - repleted w Kdur - f/u AM labs Prophylaxis SCDs Lovenox 40 mg SC DAILY [facility] Protonix Ec Tab 40 mg PO DAILY [facility] Code Status: DNR/DNI Disposition: Case MGMT reports LTACH accepted but insurance denied; Family refusing hospice at this time; All management as per Dr. Cammie Peres
[2017-09-26 14:11] LABS: BASO # 0.1 K/uL (0.0-0.2); BASO % 0.5 % (0.0-2.0); EOS # 0.1 K/uL (0.0-0.7); EOS % 0.8 % (0.0-4.0); HEMATOCRIT 21.4 % (34.0-47.0); LYMPH # 1.5 K/uL (1.0-4.3); LYMPH % 8.5 % (20.0-40.0); MEAN CELL VOLUME 91.2 fL (81.0-99.0); MEAN CORPUSCULAR HEMOGLOBIN 29.6 pg (27.0-31.0); MEAN CORPUSCULAR HGB CONC 32.4 g/dL (33.0-37.0); MEAN PLATELET VOLUME 9.4 fL (7.2-11.7); MONO % 5.8 % (0.0-10.0); PLATELET COUNT 237 K/uL (130-400); RED CELL DISTRIBUTION WIDTH 16.6 % (11.5-14.5); WHITE BLOOD COUNT 17.4 K/uL (4.8-10.8)
[2017-09-26 14:59] LABS: EOSINOPHIL 2 % (0-4); NEUTROPHIL 80 % (50-75); TOTAL CELLS COUNTED 100
[2017-09-26 15:01] LABS: LARGE PLATELETS PRESENT
[2017-09-26 15:08] LABS: ALB/GLOB RATIO 0.9 (1.0-2.1); ALKALINE PHOSPHATASE 75 U/L (38-126); ALT/SGPT 42 U/L (9-52); AST/SGOT 46 U/L (14-36); BLOOD UREA NITROGEN 22 mg/dL (7-17); CARBON DIOXIDE 24 mmol/L (22-30); CHLORIDE 106 mmol/L (98-107); GFR AFRICAN-AMERICAN > 60; GLUCOSE,RANDOM 163 mg/dL (65-105); POTASSIUM 3.1 mmol/L (3.6-5.2); SODIUM 139 mmol/L (132-148); TOTAL PROTEIN 6.5 g/dL (6.3-8.3)
[2017-09-26] MEDS: Piperacill/Tazo 3.375gm in Dex 3.375 GM/50 ML BAG IVPB SCH ×3 (17:21→23:45)
[2017-09-26] MEDS ORDERED: TPN#4 IV ONE (18:00)
--- NOTE | 2017-09-26 19:38 | CP.PCM.PN ---
Subjective - Date & Time of Evaluation Date of Evaluation: 09/26/17 Time of Evaluation: 09:00 - Subjective Subjective: clinically same Objective - Vital Signs/Intake and Output Vital Signs (last 24 hours): Temp Pulse Resp BP Pulse Ox 97.9 F 96 H 20 145/81 100 09/26/17 16:00 09/26/17 16:00 09/26/17 16:00 09/26/17 16:00 09/26/17 16:00 Intake and Output: 09/26/17 09/27/17 18:59 06:59 Intake Total 394 Balance 394 - Medications Medications: Current Medications Calcitriol (Rocaltrol) 0.25 mcg PO DAILY [facility] Last Admin: 09/26/17 10:27 Dose: Not Given Dronabinol (Marinol) 5 mg PO BID [facility] Last Admin: 09/26/17 18:30 Dose: 5 mg Fat Emulsion Intravenous (Intralipid 20%) 500 mls @ 42 mls/hr IV TTS@1800 [facility] Last Admin: 09/25/17 17:41 Dose: 42 mls/hr Piperacillin Sod/Tazobactam Sod (Zosyn 3.375 Gm Iv Premix) 3.375 gm in 50 mls @ 100 mls/hr IVPB Q6H [facility] Last Admin: 09/26/17 17:21 Dose: 100 mls/hr Multivitamins/Vitamin C 10 ml/Chromium/Copper/Manganese/Zinc 1 ml/ Heparin Sodium ( Porcine) 1,000 units/ Amino Acids/Electrolytes/Dextrose 1,012 mls @ 42 mls/hr IV .Q24H ONE Stop: 09/27/17 17:59 Last Admin: 09/26/17 18:30 Dose: 42 mls/hr Morphine Sulfate (Morphine) 4 mg IVP Q3 [facility] Last Admin: 09/26/17 16:30 Dose: 4 mg Morphine Sulfate (Morphine) 3 mg IVP Q4 PRN PRN Reason: Pain, severe (8-10) Last Admin: 09/26/17 09:58 Dose: 3 mg Vitamin A (Vitamin A & D Oint Ud Foilpak) 1 ea TOP DAILY [facility] Last Admin: 09/26/17 09:58 Dose: 1 ea - Labs Labs: 09/26/17 14:00 09/26/17 14:00 PT 16.1 SECONDS (9.7-12.2) H 11/21/17 14:19 INR 1.4 09/04/17 14:19 APTT 32 SECONDS (21-34) 09/04/17 14:19 - Constitutional Appears: Well - Head Exam Head Exam: ATRAUMATIC, NORMAL INSPECTION, NORMOCEPHALIC - Eye Exam Eye Exam: EOMI, Normal appearance, PERRL Pupil Exam: NORMAL ACCOMODATION, PERRL - ENT Exam ENT Exam: Mucous Membranes Moist, Normal Exam - Neck Exam Neck Exam: Full ROM, Normal Inspection. 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
--- NOTE | 2017-09-26 20:47 | CP.PCM.PN ---
Subjective - Date & Time of Evaluation Date of Evaluation: 09/26/17 Time of Evaluation: 18:00 - Subjective Subjective: Appears comfortable Objective - Vital Signs/Intake and Output Vital Signs (last 24 hours): Temp Pulse Resp BP Pulse Ox 98.5 F 96 H 18 125/80 100 09/26/17 20:18 09/26/17 20:18 09/26/17 20:18 09/26/17 20:18 09/26/17 16:00 Intake and Output: 09/26/17 09/27/17 18:59 06:59 Intake Total 394 0 Balance 394 0 - Medications Medications: Current Medications Calcitriol (Rocaltrol) 0.25 mcg PO DAILY [facility] Last Admin: 09/26/17 10:27 Dose: Not Given Dronabinol (Marinol) 5 mg PO BID [facility] Last Admin: 09/26/17 18:30 Dose: 5 mg Fat Emulsion Intravenous (Intralipid 20%) 500 mls @ 42 mls/hr IV TTS@1800 [facility] Last Admin: 09/25/17 17:41 Dose: 42 mls/hr Piperacillin Sod/Tazobactam Sod (Zosyn 3.375 Gm Iv Premix) 3.375 gm in 50 mls @ 100 mls/hr IVPB Q6H [facility] Last Admin: 09/26/17 17:21 Dose: 100 mls/hr Multivitamins/Vitamin C 10 ml/Chromium/Copper/Manganese/Zinc 1 ml/ Heparin Sodium ( Porcine) 1,000 units/ Amino Acids/Electrolytes/Dextrose 1,012 mls @ 42 mls/hr IV .Q24H ONE Stop: 09/27/17 17:59 Last Admin: 09/26/17 18:30 Dose: 42 mls/hr Morphine Sulfate (Morphine) 4 mg IVP Q3 [facility] Last Admin: 09/26/17 19:30 Dose: 4 mg Morphine Sulfate (Morphine) 3 mg IVP Q4 PRN PRN Reason: Pain, severe (8-10) Last Admin: 09/26/17 09:58 Dose: 3 mg Vitamin A (Vitamin A & D Oint Ud Foilpak) 1 ea TOP DAILY [facility] Last Admin: 09/26/17 09:58 Dose: 1 ea - Labs Labs: 09/26/17 14:00 09/26/17 14:00 PT 16.1 SECONDS (9.7-12.2) H 09/04/17 14:19 INR 1.4 09/04/17 14:19 APTT 32 SECONDS (21-34) 09/04/17 14:19 - Head Exam Head Exam: ATRAUMATIC - Eye Exam Eye Exam: Normal appearance - ENT Exam ENT Exam: Mucous Membranes Dry - Respiratory Exam Respiratory Exam: NORMAL BREATHING PATTERN - Cardiovascular Exam Cardiovascular Exam: +S1, +S2 - GI/Abdominal Exam GI & Abdominal Exam: Normal Bowel Sounds Assessment and Plan (1) Anemia Assessment & Plan: chronic disease recommend hgb > 8 before transfer Status: Acute (2) Extraovarian primary peritoneal carcinoma Assessment & Plan: supportive care not a treatment candidate Status: Chronic
[2017-09-26] MEDS ORDERED: Potassium Chloride 20 mEq ER Tab PO STA (23:17)
[2017-09-27] MEDS: Morphine 4 MG/ML VIAL IVP SCH ×8 (01:18→22:04)
[2017-09-27] MEDS: Piperacill/Tazo 3.375gm in Dex 3.375 GM/50 ML BAG IVPB SCH ×4 (07:15→22:04)
--- NOTE | 2017-09-27 09:12 | CP.PCM.PN ---
Subjective - Date & Time of Evaluation Date of Evaluation: 09/27/17 Time of Evaluation: 09:56 - Subjective Subjective: PGY2 Medicine Note for Dr. Cammie Peres; all management as per Dr. Cammie Peres This patient was seen and examined at bedside this AM; denies any acute complaints other than pain; as per nursing notes it appears that the patient is refusing some of her PRN pain medications so they are ordered for her if she so desires; patient is cachectic and chronically ill; patient is refusing hospice at this time although this would most likely be the most beneficial to her. Objective - Vital Signs/Intake and Output Vital Signs (last 24 hours): Temp Pulse Resp BP Pulse Ox 97.7 F 94 H 20 136/90 100 09/27/17 07:46 09/27/17 07:46 09/27/17 07:46 09/27/17 07:46 09/27/17 07:46 Intake and Output: 09/27/17 09/27/17 06:59 18:59 Intake Total 613 325 Output Total 300 Balance 313 325 - Medications Medications: Current Medications Calcitriol (Rocaltrol) 0.25 mcg PO DAILY [facility] Last Admin: 09/26/17 10:27 Dose: Not Given Dronabinol (Marinol) 5 mg PO BID [facility] Last Admin: 09/26/17 18:30 Dose: 5 mg Fat Emulsion Intravenous (Intralipid 20%) 500 mls @ 42 mls/hr IV TTS@1800 [facility] Last Admin: 09/25/17 17:41 Dose: 42 mls/hr Piperacillin Sod/Tazobactam Sod (Zosyn 3.375 Gm Iv Premix) 3.375 gm in 50 mls @ 100 mls/hr IVPB Q6H [facility] Last Admin: 09/27/17 07:15 Dose: 100 mls/hr Multivitamins/Vitamin C 10 ml/Chromium/Copper/Manganese/Zinc 1 ml/ Heparin Sodium ( Porcine) 1,000 units/ Amino Acids/Electrolytes/Dextrose 1,012 mls @ 42 mls/hr IV .Q24H ONE Stop: 09/27/17 17:59 Last Admin: 09/26/17 18:30 Dose: 42 mls/hr Morphine Sulfate (Morphine) 4 mg IVP Q3 [facility] Last Admin: 09/27/17 07:14 Dose: Not Given Morphine Sulfate (Morphine) 3 mg IVP Q3 PRN PRN Reason: Pain, severe (8-10) Vitamin A (Vitamin A & D Oint Ud Foilpak) 1 ea TOP DAILY [facility] Last Admin: 09/26/17 09:58 Dose: 1 ea - Labs Labs: 09/26/17 14:00 09/26/17 14:00 PT 16.1 SECONDS (9.7-12.2) H 09/04/17 14:19 INR 1.4 09/04/17 14:19 APTT 32 SECONDS (21-34) 09/04/17 14:19 - Constitutional Appears: Non-toxic, Cachectic, Chronically Ill - Head Exam Head Exam: ATRAUMATIC - Eye Exam Eye Exam: EOMI - ENT Exam ENT Exam: Mucous Membranes Moist - Neck Exam Neck Exam: Full ROM - Respiratory Exam Respiratory Exam: Clear to Ausculation Bilateral - Cardiovascular Exam Cardiovascular Exam: REGULAR RHYTHM - GI/Abdominal Exam GI & Abdominal Exam: Firm, Guarding, Rigid, Tenderness - Neurological Exam Neurological Exam: Alert, Awake - Psychiatric Exam Psychiatric exam: Flat Affect - Skin Skin Exam: Warm Assessment and Plan - Assessment and Plan (Free Text) Assessment: Extraovarian primary peritoneal carcinoma HemeOnc Consulted, Dr. Hdez, f/u recs supportive care CT scan shows progression of her disease despite cytoreductive surgery Palliated care consult, Rosa f/u recs; patient is only for supportive care with no aggressive measures Continue Morphine for pain 09/13: Dr. Hdez is not recommending any further chemo as patient is extremely weak and poor candidate; will continue with supportive/comfort care; please refer to palliative care consult for further recs Anemia; chronic and will monitor anemia of chronic disease FOBT positive transfusion support PRN; recommend hgb above 8 Leukocytosis; stable most likely / to CA 09/13-09/14: remains elevated on Pip/tazo Continue piperacillin tazobactam. UTI; resolved Urine culture grew yeast. - completed diflucan course - no present symptoms Decrease oral intake; chronic 09/26: Continue PPN, supplements per Dietary recommendations 09/14: Not a PEG candidate, also patient/family do not want PEG placement. They are considering hospice. 09/12: GI consult, Dr. Norris: pt is not a candidate w. tumor burden, patient desires comfort care Fat Emulsion Intravenous (Intralipid 20%) 500 mls @ 50 mls/hr IV TTS@1800 [facility] 09/13: started Marinol 5mg BID; will see how helps nausea and oral intake; patient does not have dysphagia but is simply not eating Nausea; controlled Continue Zofran Tab) 4 mg PO Q8 PRN Electrolyte Imbalance; will monitor K 3.4 on 09/25 - repleted w Kdur - f/u AM labs Prophylaxis SCDs Lovenox 40 mg SC DAILY [facility] Protonix Ec Tab 40 mg PO DAILY [facility] Code Status: DNR/DNI Disposition: Case MGMT reports LTACH accepted but insurance denied; Family refusing hospice at this time will f/u CBC; if above 8 patient is stable for d/c All management as per Dr. Cammie Peres
[2017-09-27] MEDS ORDERED: Morphine 4 MG/ML VIAL IVP PRN (10:00)
[2017-09-27] MEDS: Vitamins A & D Oint UD Foilpak TOP SCH (11:01)
[2017-09-27 12:01] LABS: HEMATOCRIT 29.3 % (34.0-47.0); MEAN CELL VOLUME 90.5 fL (81.0-99.0); MEAN CORPUSCULAR HGB CONC 33.1 g/dL (33.0-37.0); RED CELL DISTRIBUTION WIDTH 15.8 % (11.5-14.5); WHITE BLOOD COUNT 21.6 K/uL (4.8-10.8)
--- NOTE | 2017-09-27 17:40 | CP.PCM.PN ---
Subjective - Date & Time of Evaluation Date of Evaluation: 09/27/17 Time of Evaluation: 09:00 - Subjective Subjective: clinically same Objective - Vital Signs/Intake and Output Vital Signs (last 24 hours): Temp Pulse Resp BP Pulse Ox 98.4 F 95 H 18 127/81 97 09/27/17 15:10 09/27/17 15:10 09/27/17 15:10 09/27/17 15:10 09/27/17 15:10 Intake and Output: 09/27/17 09/27/17 06:59 18:59 Intake Total 613 325 Output Total 300 50 Balance 313 275 - Medications Medications: Current Medications Calcitriol (Rocaltrol) 0.25 mcg PO DAILY [facility] Last Admin: 09/27/17 11:01 Dose: Not Given Dronabinol (Marinol) 5 mg PO BID [facility] Last Admin: 09/27/17 11:01 Dose: Not Given Fat Emulsion Intravenous (Intralipid 20%) 500 mls @ 42 mls/hr IV TTS@1800 [facility] Last Admin: 09/25/17 17:41 Dose: 42 mls/hr Piperacillin Sod/Tazobactam Sod (Zosyn 3.375 Gm Iv Premix) 3.375 gm in 50 mls @ 100 mls/hr IVPB Q6H [facility] Last Admin: 09/27/17 11:01 Dose: 100 mls/hr Multivitamins/Vitamin C 10 ml/Chromium/Copper/Manganese/Zinc 1 ml/ Heparin Sodium ( Porcine) 1,000 units/ Amino Acids/Electrolytes/Dextrose 1,012 mls @ 42 mls/hr IV .Q24H ONE Stop: 09/27/17 17:59 Last Admin: 09/26/17 18:30 Dose: 42 mls/hr Morphine Sulfate (Morphine) 4 mg IVP Q3 [facility] Last Admin: 09/27/17 13:27 Dose: 4 mg Morphine Sulfate (Morphine) 3 mg IVP Q3 PRN PRN Reason: Pain, severe (8-10) Vitamin A (Vitamin A & D Oint Ud Foilpak) 1 ea TOP DAILY [facility] Last Admin: 09/27/17 11:01 Dose: 1 ea - Labs Labs: 09/27/17 11:57 09/26/17 14:00 PT 16.1 SECONDS (9.7-12.2) H 09/04/17 14:19 INR 1.4 09/04/17 14:19 APTT 32 SECONDS (21-34) 09/04/17 14:19 Assessment and Plan (1) Altered mental status Status: Acute (2) Anemia Status: Acute (3) Coagulopathy Status: Acute (4) Extraovarian primary peritoneal carcinoma Status: Chronic (5) Leukocytosis Status: Acute (6) Pneumonia Status: Acute (7) Sepsis Status: Acute
--- NOTE | 2017-09-27 21:25 | CP.PCM.PN ---
Subjective - Date & Time of Evaluation Date of Evaluation: 09/27/17 Time of Evaluation: 17:30 - Subjective Subjective: Appears comfortable Objective - Vital Signs/Intake and Output Vital Signs (last 24 hours): Temp Pulse Resp BP Pulse Ox 98.4 F 95 H 18 127/81 97 09/27/17 15:10 09/27/17 15:10 09/27/17 15:10 09/27/17 15:10 09/27/17 15:10 Intake and Output: 09/27/17 09/28/17 18:59 06:59 Intake Total 325 Output Total 50 Balance 275 - Medications Medications: Current Medications Calcitriol (Rocaltrol) 0.25 mcg PO DAILY [facility] Last Admin: 09/27/17 11:01 Dose: Not Given Dronabinol (Marinol) 5 mg PO BID [facility] Last Admin: 09/27/17 18:22 Dose: 5 mg Piperacillin Sod/Tazobactam Sod (Zosyn 3.375 Gm Iv Premix) 3.375 gm in 50 mls @ 100 mls/hr IVPB Q6H [facility] Last Admin: 09/27/17 17:45 Dose: 100 mls/hr Morphine Sulfate (Morphine) 4 mg IVP Q3 [facility] Last Admin: 09/27/17 18:23 Dose: 4 mg Morphine Sulfate (Morphine) 3 mg IVP Q3 PRN PRN Reason: Pain, severe (8-10) Vitamin A (Vitamin A & D Oint Ud Foilpak) 1 ea TOP DAILY [facility] Last Admin: 09/27/17 11:01 Dose: 1 ea - Labs Labs: 09/27/17 11:57 09/26/17 14:00 PT 16.1 SECONDS (9.7-12.2) H 09/04/17 14:19 INR 1.4 09/04/17 14:19 APTT 32 SECONDS (21-34) 09/04/17 14:19 - Head Exam Head Exam: ATRAUMATIC - Eye Exam Eye Exam: Normal appearance - ENT Exam ENT Exam: Mucous Membranes Dry - Respiratory Exam Respiratory Exam: Decreased Breath Sounds - Cardiovascular Exam Cardiovascular Exam: +S1, +S2 - GI/Abdominal Exam GI & Abdominal Exam: Normal Bowel Sounds Assessment and Plan (1) Anemia Assessment & Plan: chronic disease recommend hgb > 8 before transfer Status: Acute (2) Extraovarian primary peritoneal carcinoma Assessment & Plan: supportive care not a treatment candidate DNR/DNI deferred hospice Status: Chronic
[2017-09-28] MEDS: Morphine 4 MG/ML VIAL IVP SCH ×8 (01:00→23:08)
[2017-09-28] MEDS: Piperacill/Tazo 3.375gm in Dex 3.375 GM/50 ML BAG IVPB SCH ×4 (04:45→23:08)
--- NOTE | 2017-09-28 07:07 | CP.PCM.PN ---
Subjective - Date & Time of Evaluation Date of Evaluation: 09/28/17 Time of Evaluation: 09:05 - Subjective Subjective: Medicine note- Dr. Peres's service Patient was seen and examined at bedside. Patient appeared comfortable, in no acute distress. Patient reports no acute complaints at this time. Patient stated that she did not want to talk about discharge plans as of yet. Discussed with rifle case repairer, patient has been accepted at [facility], but patient is refusing to go. No events overnight as per nursing. Objective - Vital Signs/Intake and Output Vital Signs (last 24 hours): Temp Pulse Resp BP Pulse Ox 98.3 F 96 H 20 137/87 95 09/28/17 04:00 09/28/17 04:00 09/28/17 04:00 09/28/17 04:00 09/28/17 04:00 Intake and Output: 09/28/17 09/28/17 06:59 18:59 Intake Total 514 Output Total 250 Balance 264 - Medications Medications: Current Medications Calcitriol (Rocaltrol) 0.25 mcg PO DAILY [facility] Last Admin: 09/27/17 11:01 Dose: Not Given Dronabinol (Marinol) 5 mg PO BID [facility] Last Admin: 09/27/17 18:22 Dose: 5 mg Piperacillin Sod/Tazobactam Sod (Zosyn 3.375 Gm Iv Premix) 3.375 gm in 50 mls @ 100 mls/hr IVPB Q6H [facility] Last Admin: 09/28/17 04:45 Dose: 100 mls/hr Morphine Sulfate (Morphine) 4 mg IVP Q3 [facility] Last Admin: 09/28/17 06:43 Dose: 4 mg Morphine Sulfate (Morphine) 3 mg IVP Q3 PRN PRN Reason: Pain, severe (8-10) Vitamin A (Vitamin A & D Oint Ud Foilpak) 1 ea TOP DAILY [facility] Last Admin: 09/27/17 11:01 Dose: 1 ea - Labs Labs: 09/27/17 11:57 09/26/17 14:00 PT 16.1 SECONDS (9.7-12.2) H 09/04/17 14:19 INR 1.4 09/04/17 14:19 APTT 32 SECONDS (21-34) 09/04/17 14:19 - Constitutional Appears: Cachectic, Chronically Ill - Head Exam Head Exam: ATRAUMATIC, NORMAL INSPECTION, NORMOCEPHALIC - Eye Exam Pupil Exam: NORMAL ACCOMODATION - ENT Exam ENT Exam: Mucous Membranes Moist - Respiratory Exam Respiratory Exam: Clear to Ausculation Bilateral, NORMAL BREATHING PATTERN. absent: Prolonged Expiratory Phase, Rales, Rhonchi, Wheezes - Cardiovascular Exam Cardiovascular Exam: REGULAR RHYTHM, +S1, +S2 - GI/Abdominal Exam GI & Abdominal Exam: Distended, Firm, Soft, Normal Bowel Sounds - Extremities Exam Extremities Exam: Normal Capillary Refill, Normal Inspection - Neurological Exam Neurological Exam: Alert, Awake, Oriented x3 - Psychiatric Exam Psychiatric exam: Normal Affect, Normal Mood - Skin Skin Exam: Dry, Intact, Normal Color, Warm Assessment and Plan - Assessment and Plan (Free Text) Assessment: Extraovarian primary peritoneal carcinoma HemeOn Consulted, Dr. Hdez, f/u recs supportive care CT scan shows progression of her disease despite cytoreductive surgery Palliated care consult, Rosa f/u blues; patient is only for supportive care with no aggressive measures Continue Morphine for pain 09/13: Dr. Hdez is not recommending any further chemo as patient is extremely weak and poor candidate; will continue with supportive/comfort care; please refer to palliative care consult for further recs Anemia; chronic and will monitor anemia of chronic disease FOBT positive transfusion support PRN; recommend hgb above 8 Leukocytosis; stable most likely / to CA 09/13-09/14: remains elevated on Pip/tazo Continue piperacillin tazobactam. UTI; resolved Urine culture grew yeast. - completed diflucan course - no present symptoms Decrease oral intake; chronic 09/26: Continue PPN, supplements per Dietary recommendations 09/14: Not a PEG candidate, also patient/family do not want PEG placement. They are considering hospice. 09/12: GI consult, Dr. Norris: pt is not a candidate w. tumor burden, patient desires comfort care Fat Emulsion Intravenous (Intralipid 20%) 500 mls @ 50 mls/hr IV TTS@1800 [facility] 09/13: started Marinol 5mg BID; will see how helps nausea and oral intake; patient does not have dysphagia but is simply not eating Nausea; controlled Continue Zofran Tab) 4 mg PO Q8 PRN Electrolyte Imbalance; will monitor K 3.4 on 09/25 - repleted w Kdur - f/u AM labs Prophylaxis SCDs Lovenox 40 mg SC DAILY [facility] Protonix Ec Tab 40 mg PO DAILY [facility] Code Status: DNR/DNI Disposition: Case MGMT reports LTACH accepted but insurance denied; Family refusing hospice at this time will f/u CBC; if above 8 patient is stable for d/c All management as per Dr. Cammie Peres
[2017-09-28] MEDS: Vitamins A & D Oint UD Foilpak TOP SCH (10:46)
[2017-09-28 16:01] VITALS: RESP 20
[2017-09-28] MEDS ORDERED: TPN#1 IV ONE (18:00)
[2017-09-28] MEDS ORDERED: Fat Emulsion 20% IV 500 ML IV SCH (18:00)
--- NOTE | 2017-09-28 19:31 | CP.PCM.PN ---
Subjective - Date & Time of Evaluation Date of Evaluation: 09/28/17 Time of Evaluation: 08:40 - Subjective Subjective: clinically same Objective - Vital Signs/Intake and Output Vital Signs (last 24 hours): Temp Pulse Resp BP Pulse Ox 98.3 F 95 H 20 141/97 H 95 09/28/17 16:00 09/28/17 16:00 09/28/17 16:00 09/28/17 16:00 09/28/17 16:00 Intake and Output: 09/28/17 09/29/17 18:59 06:59 Intake Total 320 Output Total 120 Balance 200 - Medications Medications: Current Medications Calcitriol (Rocaltrol) 0.25 mcg PO DAILY [facility] Last Admin: 09/28/17 10:47 Dose: 0.25 mcg Dronabinol (Marinol) 5 mg PO BID [facility] Last Admin: 09/28/17 19:13 Dose: 5 mg Piperacillin Sod/Tazobactam Sod (Zosyn 3.375 Gm Iv Premix) 3.375 gm in 50 mls @ 100 mls/hr IVPB Q6H [facility] Last Admin: 09/28/17 18:07 Dose: 100 mls/hr Multivitamins/Vitamin C 10 ml/Heparin Sodium (Porcine) 1, 000 units/ Amino Acids /Electrolytes/Dextrose 1,010.2 mls @ 42 mls/hr IV .Q24H ONE Stop: 09/29/17 17:59 Fat Emulsion Intravenous (Intralipid 20%) 500 mls @ 42 mls/hr IV MWF@1800 [facility] Last Admin: 09/28/17 19:12 Dose: 42 mls/hr Morphine Sulfate (Morphine) 4 mg IVP Q3 [facility] Last Admin: 09/28/17 19:13 Dose: 4 mg Morphine Sulfate (Morphine) 3 mg IVP Q3 PRN PRN Reason: Pain, severe (8-10) Vitamin A (Vitamin A & D Oint Ud Foilpak) 1 ea TOP DAILY [facility] Last Admin: 09/28/17 10:46 Dose: 1 ea - Labs Labs: 09/27/17 11:57 09/26/17 14:00 PT 16.1 SECONDS (9.7-12.2) H 09/04/17 14:19 INR 1.4 09/04/17 14:19 APTT 32 SECONDS (21-34) 09/04/17 14:19 Assessment and Plan (1) Altered mental status Status: Acute (2) Anemia Status: Acute (3) Coagulopathy Status: Acute (4) Extraovarian primary peritoneal carcinoma Status: Chronic (5) Leukocytosis Status: Acute (6) Pneumonia Status: Acute (7) Sepsis Status: Acute
--- NOTE | 2017-09-28 21:57 | CP.PCM.PN ---
Subjective - Date & Time of Evaluation Date of Evaluation: 09/28/17 Time of Evaluation: 18:00 - Subjective Subjective: Appears comfortable Objective - Vital Signs/Intake and Output Vital Signs (last 24 hours): Temp Pulse Resp BP Pulse Ox 98.3 F 95 H 20 141/97 H 95 09/28/17 16:00 09/28/17 16:00 09/28/17 16:00 09/28/17 16:00 09/28/17 16:00 Intake and Output: 09/28/17 09/29/17 18:59 06:59 Intake Total 320 Output Total 120 Balance 200 - Medications Medications: Current Medications Calcitriol (Rocaltrol) 0.25 mcg PO DAILY [facility] Last Admin: 09/28/17 10:47 Dose: 0.25 mcg Dronabinol (Marinol) 5 mg PO BID [facility] Last Admin: 09/28/17 19:13 Dose: 5 mg Piperacillin Sod/Tazobactam Sod (Zosyn 3.375 Gm Iv Premix) 3.375 gm in 50 mls @ 100 mls/hr IVPB Q6H [facility] Last Admin: 09/28/17 18:07 Dose: 100 mls/hr Multivitamins/Vitamin C 10 ml/Heparin Sodium (Porcine) 1, 000 units/ Amino Acids /Electrolytes/Dextrose 1,010.2 mls @ 42 mls/hr IV .Q24H ONE Stop: 09/29/17 17:59 Fat Emulsion Intravenous (Intralipid 20%) 500 mls @ 42 mls/hr IV MWF@1800 [facility] Last Admin: 09/28/17 19:12 Dose: 42 mls/hr Morphine Sulfate (Morphine) 4 mg IVP Q3 [facility] Last Admin: 09/28/17 19:13 Dose: 4 mg Morphine Sulfate (Morphine) 3 mg IVP Q3 PRN PRN Reason: Pain, severe (8-10) Vitamin A (Vitamin A & D Oint Ud Foilpak) 1 ea TOP DAILY [facility] Last Admin: 09/28/17 10:46 Dose: 1 ea - Labs Labs: 09/27/17 11:57 09/26/17 14:00 PT 16.1 SECONDS (9.7-12.2) H 09/04/17 14:19 INR 1.4 09/04/17 14:19 APTT 32 SECONDS (21-34) 09/04/17 14:19 - Head Exam Head Exam: ATRAUMATIC - Eye Exam Eye Exam: Normal appearance - ENT Exam ENT Exam: Mucous Membranes Dry - Respiratory Exam Respiratory Exam: NORMAL BREATHING PATTERN - Cardiovascular Exam Cardiovascular Exam: +S1, +S2 - GI/Abdominal Exam GI & Abdominal Exam: Normal Bowel Sounds Assessment and Plan (1) Anemia Assessment & Plan: chronic disease recommend hgb > 8 before transfer Status: Acute (2) Extraovarian primary peritoneal carcinoma Assessment & Plan: supportive care not a treatment candidate DNR/DNI deferred hospice Status: Chronic
[2017-09-29] MEDS: Morphine 4 MG/ML VIAL IVP SCH ×6 (01:00→15:20)
[2017-09-29] MEDS: Piperacill/Tazo 3.375gm in Dex 3.375 GM/50 ML BAG IVPB SCH ×3 (04:43→16:44)
[2017-09-29 08:48] VITALS: O2SAT 100
[2017-09-29] MEDS: Vitamins A & D Oint UD Foilpak TOP SCH (10:13)
[2017-09-29 16:15] VITALS: BP 127/81; PULSE 102; TEMP 98.3
--- NOTE | 2017-09-29 16:35 | CP.PCM.PN ---
Subjective - Date & Time of Evaluation Date of Evaluation: 09/29/17 Time of Evaluation: 09:00 - Subjective Subjective: clinically same Objective - Vital Signs/Intake and Output Vital Signs (last 24 hours): Temp Pulse Resp BP Pulse Ox 98.3 F 102 H 20 127/81 100 09/29/17 16:14 09/29/17 16:14 09/29/17 16:14 09/29/17 16:14 09/29/17 16:14 Intake and Output: 09/29/17 09/29/17 06:59 18:59 Intake Total 751 Output Total 400 Balance 351 - Medications Medications: Current Medications Calcitriol (Rocaltrol) 0.25 mcg PO DAILY [facility] Last Admin: 09/29/17 10:13 Dose: 0.25 mcg Dronabinol (Marinol) 5 mg PO BID [facility] Last Admin: 09/29/17 10:12 Dose: 5 mg Piperacillin Sod/Tazobactam Sod (Zosyn 3.375 Gm Iv Premix) 3.375 gm in 50 mls @ 100 mls/hr IVPB Q6H [facility] Last Admin: 09/29/17 10:12 Dose: 100 mls/hr Multivitamins/Vitamin C 10 ml/Heparin Sodium (Porcine) 1, 000 units/ Amino Acids /Electrolytes/Dextrose 1,010.2 mls @ 42 mls/hr IV .Q24H ONE Stop: 09/29/17 17:59 Last Admin: 09/29/17 10:14 Dose: 42 mls/hr Fat Emulsion Intravenous (Intralipid 20%) 500 mls @ 42 mls/hr IV MWF@1800 [facility] Last Admin: 09/28/17 19:12 Dose: 42 mls/hr Morphine Sulfate (Morphine) 4 mg IVP Q3 [facility] Last Admin: 09/29/17 15:20 Dose: 4 mg Morphine Sulfate (Morphine) 3 mg IVP Q3 PRN PRN Reason: Pain, severe (8-10) Vitamin A (Vitamin A & D Oint Ud Foilpak) 1 ea TOP DAILY [facility] Last Admin: 09/29/17 10:13 Dose: 1 ea - Labs Labs: 09/27/17 11:57 09/26/17 14:00 PT 16.1 SECONDS (9.7-12.2) H 09/04/17 14:19 INR 1.4 09/04/17 14:19 APTT 32 SECONDS (21-34) 09/04/17 14:19 - Constitutional Appears: Well - Head Exam Head Exam: ATRAUMATIC, NORMAL INSPECTION, NORMOCEPHALIC - Eye Exam Eye Exam: EOMI, Normal appearance, PERRL Pupil Exam: NORMAL ACCOMODATION, PERRL - ENT Exam ENT Exam: Mucous Membranes Moist, Normal Exam - Neck Exam Neck Exam: Full ROM, Normal Inspection. 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
== END 2017-09-29 17:50 | DRG 435 ==
LOC: C.ER 13:54 → C.9E 16:13 → C.6T 16:45 → C.9E 16:56 → C.6T 17:13
PROVIDERS: ADMIT Internal Medicine Nephrology; ATTEND Internal Medicine Nephrology
DX: C78.7 Secondary malignant neoplasm of liver and intrahepatic bile duct (principal); J18.9 Pneumonia, unspecified organism; C78.6 Secondary malignant neoplasm of retroperitoneum and peritoneum; D68.9 Coagulation defect, unspecified; E83.42 Hypomagnesemia; E87.1 Hypo-osmolality and hyponatremia; K92.2 Gastrointestinal hemorrhage, unspecified; N39.0 Urinary tract infection, site not specified; N13.30 Unspecified hydronephrosis; D63.8 Anemia in other chronic diseases classified elsewhere; E16.2 Hypoglycemia, unspecified; G89.3 Neoplasm related pain (acute) (chronic); I10 Essential (primary) hypertension; Z66 Do not resuscitate; Z51.5 Encounter for palliative care; Z85.42 Personal history of malignant neoplasm of other parts of uterus; Z85.89 Personal history of malignant neoplasm of other organs and systems; Z92.21 Personal history of antineoplastic chemotherapy; Z90.710 Acquired absence of both cervix and uterus